=== PATIENT | female | born 1950 | race African-American/Black ===

== ENCOUNTER 2016-08-09 10:08 | Emergency (ER) | payer MEDICARE, MEDICAID ==
[~2016-08-09] VITALS: Ht 162.6 cm; Wt 63.5 kg
[~2016-08-09 10:08] MED LIST: AMLO10TA80 PO; ASPI-1035 PO; COR3 PO; LATA2.5D2 EACHEYE; LISI10TA5 PO; METF500T PO; SIMV20TA6 PO
[2016-08-09] MEDS ORDERED: IBUPROFEN 600MG TABLET PO STA (10:30)
[2016-08-09 11:16] LABS: BASOPHILS % 1.1 % (0.0-2.0); EOSINOPHILS % 1.2 % (0.0-5.0); HEMATOCRIT. 36.1 % (36.0-48.0); HEMOGLOBIN. 11.8 g/dL (12.0-16.0); LYMPHOCYTES % 29.3 % (20.0-50.0); MEAN CORPUSCULAR HEMOGLOBIN 27.9 pg (28.0-32.0); MEAN CORPUSCULAR HGB CONC 32.7 g/dL (31.0-37.0); MEAN CORPUSCULAR VOLUME 85.1 fL (81.0-99.0); MEAN PLATELET VOLUME 7.7 fl (7.4-10.4); MONOCYTES % 8.3 % (2.0-8.0); NEUTROPHILS % 60.1 % (40.0-76.0); PLATELET 268 x1000/uL (130-400); RED BLOOD CELL COUNT 4.24 mill/uL (4.2-5.4); RED CELL DISTRIBUTION WIDTH 16.4 % (11.6-14.6); WHITE BLOOD COUNT 7.6 x1000/uL (4.5-11.0)
[2016-08-09 11:33] LABS: ALANINE AMINOTRANSFERASE 22 IU/L (13-61); ALBUMIN 3.6 g/dL (3.4-5.0); ANION GAP 12; CARBON DIOXIDE 30 mEq/L (21-32); CHLORIDE 105 mEq/L (98-107); INDEX HEMOLYSI 1 (1-3); INDEX ICTERIC 1 (1-4); INDEX LIPEMIC 1 (1-3); NT PRO B-TYPE NATRIURETIC PEP 73 pg/mL (5-125); TROPONIN I < 0.02 ng/mL (0.00-0.04); UREA NITROGEN BLOOD 15 mg/dL (7-21); eGFR > 60 mL/min (>60)
[2016-08-09 11:41] LABS: PROTHROMBIN TIME 10.7 sec
[2016-08-09 11:44] LABS: PARTIAL THROMBOPLASTIN TIME 22.8 sec (24.0-34.0)
[2016-08-09 13:01] VITALS: BP 137/80
== END 2016-08-09 13:33 | disposition home or self-care (01) ==
LOC: ER 10:31
DX: J06.9 Acute upper respiratory infection, unspecified (principal); I11.0 Hypertensive heart disease with heart failure; I50.9 Heart failure, unspecified; E11.9 Type 2 diabetes mellitus without complications; E78.5 Hyperlipidemia, unspecified; I69.351 Hemiplegia and hemiparesis following cerebral infarction affecting right dominant side; Z79.82 Long term (current) use of aspirin; Z90.710 Acquired absence of both cervix and uterus
CPT/HCPCS: 36415; 71010; 80053; 83605; 83880; 84484; 85025; 85610; 85730; 87040; 93005; 99285

== ENCOUNTER 2016-09-30 16:16 | Emergency (ER) | payer MEDICARE, MEDICAID ==
[~2016-09-30] VITALS: Ht 162.6 cm; Wt 65.0 kg
[~2016-09-30 16:16] MED LIST changes: -ASPI-1035 PO; +ASPI-1159 PO; +IOHEXOL-300 100 ML BOTTLE ONE; +SODIUM CHLORIDE 0.9% 10ML VIAL ONE
[2016-09-30] MEDS ORDERED: ONDANSETRON HCL 4MG/2ML VIAL IV STA (18:37)
[2016-09-30] MEDS ORDERED: MORPHINE SULFATE 4 MG/ML CPJ (NOT FOR IM USE) IV STA (18:37)
[2016-09-30 19:04] LABS: BASOPHILS % 1.2 % (0.0-2.0); HEMATOCRIT. 37.6 % (36.0-48.0); HEMOGLOBIN. 12.4 g/dL (12.0-16.0); LYMPHOCYTES % 45.6 % (20.0-50.0); MEAN CORPUSCULAR HEMOGLOBIN 28.7 pg (28.0-32.0); MEAN CORPUSCULAR VOLUME 86.9 fL (81.0-99.0); MEAN PLATELET VOLUME 8.5 fl (7.4-10.4); MONOCYTES % 5.7 % (2.0-8.0); NEUTROPHILS % 46.5 % (40.0-76.0); PLATELET 229 x1000/uL (130-400); RED BLOOD CELL COUNT 4.33 mill/uL (4.2-5.4); RED CELL DISTRIBUTION WIDTH 16.7 % (11.6-14.6)
[2016-09-30 19:09] LABS: PROTHROMBIN TIME 10.7 sec
[2016-09-30 19:14] LABS: CLARITY URINE CLEAR (CLEAR); COLOR URINE YELLOW (YELLOW); GLUCOSE URINE NEGATIVE (NEGATIVE); KETONES URINE NEGATIVE (NEGATIVE); LEUKOCYTE ESTERASE URINE TRACE (NEGATIVE); NITRITE URINE NEGATIVE (NEGATIVE); OCCULT BLOOD URINE NEGATIVE (NEGATIVE); PH URINE 6.5 (4.5-8.0); PROTEIN URINE 2+ (NEGATIVE); SPECIFIC GRAVITY URINE 1.019 (1.005-1.030)
[2016-09-30 19:18] LABS: CARBON DIOXIDE 31 mEq/L (21-32); CHLORIDE 108 mEq/L (98-107); TROPONIN I < 0.02 ng/mL (0.00-0.04)
[2016-09-30] MEDS ORDERED: CLONIDINE 0.1MG TABLET PO ONE (20:00)
[2016-09-30] MEDS ORDERED: HYDROCODONE/ACETAMINOPHEN 5/325MG TABLET PO ONE (22:00)
[2016-10-01 10:12] VITALS: BP 198/92
== END 2016-10-01 10:16 | disposition home or self-care (01) ==
LOC: ER 19:17
DX: M54.5 Low back pain (principal); I10 Essential (primary) hypertension; Z79.82 Long term (current) use of aspirin; J45.909 Unspecified asthma, uncomplicated; I50.9 Heart failure, unspecified; E11.9 Type 2 diabetes mellitus without complications; E78.00 Pure hypercholesterolemia, unspecified; Z86.73 Personal history of transient ischemic attack (TIA), and cerebral infarction without residual deficits; Z90.710 Acquired absence of both cervix and uterus
CPT/HCPCS: 36415; 72170; 74177; 80053; 81001; 83605; 83690; 84484; 85025; 85610; 93005; 96374; 96375; 99285; A4216; J2270; J2405; Q9967

== ENCOUNTER 2016-10-13 11:20 | Emergency (ER) | payer MEDICARE, MEDICAID ==
[~2016-10-13] VITALS: Ht 172.7 cm; Wt 75.0 kg
[~2016-10-13 11:20] MED LIST changes: -IOHEXOL-300 100 ML BOTTLE ONE; -SODIUM CHLORIDE 0.9% 10ML VIAL ONE
[2016-10-13] MEDS ORDERED: KETOROLAC 60MG/2ML VIAL IM ONE (12:00)
[2016-10-13 12:18] LABS: BASOPHILS % 0.8 % (0.0-2.0); EOSINOPHILS % 0.7 % (0.0-5.0); HEMATOCRIT. 40.4 % (36.0-48.0); HEMOGLOBIN. 13.4 g/dL (12.0-16.0); LYMPHOCYTES % 27.2 % (20.0-50.0); MEAN CORPUSCULAR HEMOGLOBIN 28.9 pg (28.0-32.0); MEAN CORPUSCULAR VOLUME 86.9 fL (81.0-99.0); MEAN PLATELET VOLUME 8.3 fl (7.4-10.4); MONOCYTES % 4.1 % (2.0-8.0); NEUTROPHILS % 67.2 % (40.0-76.0); PLATELET 260 x1000/uL (130-400); RED BLOOD CELL COUNT 4.66 mill/uL (4.2-5.4); RED CELL DISTRIBUTION WIDTH 15.8 % (11.6-14.6)
[2016-10-13 12:32] LABS: CARBON DIOXIDE 32 mEq/L (21-32); CHLORIDE 106 mEq/L (98-107); ETHANOL BLOOD < 10 mg/dL
[2016-10-13] MEDS ORDERED: LABETALOL HCL 20MG/4ML CARPUJECT IV ONE (12:45)
[2016-10-13] MEDS ORDERED: LABETALOL 5MG/ML SYR 20 MG/4 ML SYRINGE IV SCH (12:45)
[2016-10-13] MEDS ORDERED: NICARDIPINE 50 MG in SODIUM CHLORIDE 0.9% 230 ML IV PRN ×4 (13:30)
[2016-10-13] MEDS ORDERED: AMLODIPINE 10MG TABLET PO ONE (15:30)
[2016-10-13] MEDS ORDERED: LISINOPRIL 10MG TABLET PO ONE (15:30)
[2016-10-13] MEDS ORDERED: CARVEDILOL 12.5MG TABLET PO ONE (15:30)
[2016-10-13 17:13] VITALS: BP 151/82
== END 2016-10-13 17:31 | disposition home or self-care (01) ==
LOC: ER 11:31
DX: S00.83XA Contusion of other part of head, initial encounter (principal); S70.02XA Contusion of left hip, initial encounter; S20.212A Contusion of left front wall of thorax, initial encounter; I10 Essential (primary) hypertension; Z86.73 Personal history of transient ischemic attack (TIA), and cerebral infarction without residual deficits; E78.00 Pure hypercholesterolemia, unspecified; E11.9 Type 2 diabetes mellitus without complications; I50.9 Heart failure, unspecified; J45.909 Unspecified asthma, uncomplicated; Z90.710 Acquired absence of both cervix and uterus; W01.0XXA Fall on same level from slipping, tripping and stumbling without subsequent striking against object, initial encounter; Y93.89 Activity, other specified; Y92.018 Other place in single-family (private) house as the place of occurrence of the external cause
CPT/HCPCS: 36415; 70450; 71101; 72125; 72170; 80048; 85025; 96365; 96372; 96375; 99291; G0482; J1885; J3490

== ENCOUNTER 2016-12-03 08:46 | Emergency (ER) | payer MEDICARE, MEDICAID ==
[~2016-12-03] VITALS: Ht 162.6 cm; Wt 70.0 kg
[2016-12-03] MEDS ORDERED: SODIUM CHLORIDE 0.9% 1,000 ML IV ONE (10:26)
[2016-12-03] MEDS ORDERED: KETOROLAC 30MG/ML VIAL IV STA (10:26)
[2016-12-03] MEDS ORDERED: ONDANSETRON HCL 4MG/2ML VIAL IV STA (10:26)
[2016-12-03 10:56] LABS: CLARITY URINE CLEAR (CLEAR); COLOR URINE YELLOW (YELLOW); GLUCOSE URINE NEGATIVE (NEGATIVE); KETONES URINE NEGATIVE (NEGATIVE); LEUKOCYTE ESTERASE URINE 3+ (NEGATIVE); NITRITE URINE NEGATIVE (NEGATIVE); OCCULT BLOOD URINE 1+ (NEGATIVE); PROTEIN URINE 2+ (NEGATIVE); SPECIFIC GRAVITY URINE 1.021 (1.005-1.030)
[2016-12-03 11:10] LABS: PROTHROMBIN TIME 10.5 sec
[2016-12-03 11:12] LABS: BASOPHILS % 0.5 % (0.0-2.0); EOSINOPHILS % 1.2 % (0.0-5.0); HEMATOCRIT. 36.5 % (36.0-48.0); HEMOGLOBIN. 12.4 g/dL (12.0-16.0); LYMPHOCYTES % 41.5 % (20.0-50.0); MEAN CORPUSCULAR HEMOGLOBIN 28.6 pg (28.0-32.0); MEAN CORPUSCULAR VOLUME 84.5 fL (81.0-99.0); MEAN PLATELET VOLUME 8.2 fl (7.4-10.4); MONOCYTES % 5.5 % (2.0-8.0); NEUTROPHILS % 51.3 % (40.0-76.0); PLATELET 191 x1000/uL (130-400); RED BLOOD CELL COUNT 4.31 mill/uL (4.2-5.4); RED CELL DISTRIBUTION WIDTH 14.8 % (11.6-14.6)
[2016-12-03 11:21] LABS: CARBON DIOXIDE 29 mEq/L (21-32); CHLORIDE 109 mEq/L (98-107); ETHANOL BLOOD < 10 mg/dL; TROPONIN I < 0.02 ng/mL (0.00-0.04)
[2016-12-03 11:32] LABS: *AMPHETAMINES SCREEN URINE NEGATIVE (NEGATIVE); *BARBITURATES SCREEN URINE NEGATIVE (NEGATIVE); *BENZODIAZEPINES SCREEN URINE NEGATIVE (NEGATIVE); *COCAINE SCREEN URINE NEGATIVE (NEGATIVE); CANNABINOID URINE SCREEN NEGATIVE (NEGATIVE); METHADONE URINE SCREEN NEGATIVE (NEGATIVE); OPIATES URINE SCREEN NEGATIVE (NEGATIVE); PHENCYCLIDINE URINE SCREEN NEGATIVE (NEGATIVE)
[2016-12-03 12:24] VITALS: BP 125/76
== END 2016-12-03 12:25 | disposition home or self-care (01) ==
LOC: ER 09:00
DX: N39.0 Urinary tract infection, site not specified (principal); R41.82 Altered mental status, unspecified; R29.810 Facial weakness; E11.9 Type 2 diabetes mellitus without complications; I11.0 Hypertensive heart disease with heart failure; I50.9 Heart failure, unspecified; J45.909 Unspecified asthma, uncomplicated; E78.00 Pure hypercholesterolemia, unspecified; Z79.82 Long term (current) use of aspirin
CPT/HCPCS: 36415; 70450; 71010; 74176; 80053; 80305; 81001; 82962; 83690; 84484; 85025; 85610; 93005; 96361; 96374; 96375; 99285; G0482; J1885; J2405; J7030

== ENCOUNTER 2016-12-28 09:32 | Inpatient (IN) | payer MEDICARE, MEDICAID ==
[~2016-12-28] VITALS: Ht 165.1 cm; Wt 79.8 kg
[2016-12-28] MEDS ORDERED: METHYLPREDNISOLONE SOD SUCC 125 MG/2 ML VIAL IV STA (09:55)
[2016-12-28] MEDS ORDERED: MORPHINE SULFATE 4 MG/ML CPJ (NOT FOR IM USE) IV STA (09:55)
[2016-12-28] MEDS ORDERED: ALBUTEROL (0.083%) 2.5MG/3ML NEB HHN STA (09:55)
[2016-12-28] MEDS ORDERED: ONDANSETRON HCL 4MG/2ML VIAL IV STA (09:55)
[2016-12-28] MEDS ORDERED: IPRATROPIUM BROMIDE (0.02%) 0.5MG/2.5ML NEB HHN STA (09:55)
[2016-12-28 10:07] LABS: BASOPHILS % 0.8 % (0.0-2.0); EOSINOPHILS % 2.4 % (0.0-5.0); HEMATOCRIT. 35.5 % (36.0-48.0); HEMOGLOBIN. 11.7 g/dL (12.0-16.0); LYMPHOCYTES % 30.5 % (20.0-50.0); MEAN CORPUSCULAR HEMOGLOBIN 27.9 pg (28.0-32.0); MEAN CORPUSCULAR VOLUME 84.5 fL (81.0-99.0); MEAN PLATELET VOLUME 7.9 fl (7.4-10.4); MONOCYTES % 9.3 % (2.0-8.0); PLATELET 216 x1000/uL (130-400); RED CELL DISTRIBUTION WIDTH 15.3 % (11.6-14.6)
[2016-12-28] MEDS ORDERED: ALBUTEROL (0.5%) 2.5MG/0.5ML NEB HHN ONE (10:12)
[2016-12-28 10:15] LABS: PARTIAL THROMBOPLASTIN TIME 25.9 sec (23.4-31.0); PROTHROMBIN TIME 10.5 sec (9.4-11.6)
[2016-12-28 10:22] LABS: CARBON DIOXIDE 30 mEq/L (21-32); CHLORIDE 107 mEq/L (98-107); CREATINE KINASE 120 IU/L (26-192); CREATINE KINASE MB FRACTION 0.7 ng/mL (0.5-3.6); TROPONIN I < 0.02 ng/mL (0.00-0.04)
[2016-12-28] MEDS ORDERED: LEVOFLOXACIN 500MG PREMIX 100 ML IV ONE (10:45)
[2016-12-28 14:12] VITALS: BP 136/64
[2016-12-28 16:00] VITALS: BP 144/65
[2016-12-28 16:10] VITALS: BP 146/68
[2016-12-28] MEDS ORDERED: DEXTROSE 50% WATER 50ML SYRINGE IV PRN (16:15)
[2016-12-28] MEDS ORDERED: ONDANSETRON HCL 4MG/2ML VIAL IV PRN (16:15)
[2016-12-28] MEDS ORDERED: IPRATROPIUM/ALBUTEROL 0.5-3(2.5)MG/3ML NEB INH PRN (16:15)
[2016-12-28] MEDS ORDERED: DIPHENHYDRAMINE 50MG/ML VIAL IV PRN (16:15)
[2016-12-28] MEDS ORDERED: MAGNESIUM/ALUMINUM HYDROXIDE/SIMETHICONE 30ML UDC PO PRN (16:15)
[2016-12-28] MEDS ORDERED: GUAIFENESIN 200MG/10ML SUGAR FREE UDC PO PRN (16:15)
[2016-12-28] MEDS ORDERED: ACETAMINOPHEN 325MG TABLET PO PRN (16:15)
[2016-12-28] MEDS: METFORMIN HCL 500MG TABLET PO SCH (16:47)
[2016-12-28] MEDS: BLOOD SUGAR DIAGNOSTIC STRIP TEST SCH ×2 (17:10→21:00)
[2016-12-28] MEDS: INSULIN LISPRO 100 UNITS/ML SUBCUT SCH ×3 (17:40→22:17)
[2016-12-28] MEDS ORDERED: MAGNESIUM HYDROXIDE 400MG/5ML 30ML UDC PO PRN (17:45)
[2016-12-28] MEDS: LAMOTRIGINE 25MG TABLET PO SCH (18:35)
[2016-12-28 20:00] VITALS: BP 131/65
[2016-12-28] MEDS: CLONIDINE 0.1MG TABLET PO SCH (22:00)
[2016-12-28] MEDS: CARVEDILOL 12.5MG TABLET PO SCH (22:11)
[2016-12-28] MEDS: ZOLPIDEM TARTRATE 5MG TABLET PO PRN (22:11)
[2016-12-28] MEDS: GUAIFENESIN 600MG ER TABLET PO SCH (22:12)
[2016-12-28] MEDS: OMEPRAZOLE 20MG CAPSULE EXTENDED RELEASE PO SCH (22:12)
[2016-12-28] MEDS: SODIUM CHLORIDE 0.9% INJ 3ML FLUSH IVF SCH (22:19)
[2016-12-29] VITALS: BP 133/83
[2016-12-29] MEDS: IPRATROPIUM/ALBUTEROL 0.5-3(2.5)MG/3ML NEB HHN SCH ×3 (00:21→16:20)
[2016-12-29 04:00] VITALS: BP 152/72
[2016-12-29] MEDS: CLONIDINE 0.1MG TABLET PO SCH ×3 (06:57→21:45)
[2016-12-29] MEDS: SODIUM CHLORIDE 0.9% INJ 3ML FLUSH IVF SCH ×3 (06:57→21:45)
[2016-12-29] MEDS: INSULIN LISPRO 100 UNITS/ML SUBCUT SCH ×4 (07:40→21:45)
[2016-12-29] MEDS: BLOOD SUGAR DIAGNOSTIC STRIP TEST SCH ×4 (07:47→20:50)
[2016-12-29 08:00] VITALS: BP 131/70
[2016-12-29] MEDS: DOCUSATE SODIUM 100MG CAPSULE PO SCH ×2 (08:46→17:35)
[2016-12-29] MEDS: OMEPRAZOLE 20MG CAPSULE EXTENDED RELEASE PO SCH (08:46)
[2016-12-29] MEDS: POLYETHYLENE GLYCOL 3350 (17GM) 1 DOSE PACK PO SCH (08:47)
[2016-12-29] MEDS: METFORMIN HCL 500MG TABLET PO SCH ×2 (08:47→17:35)
[2016-12-29] MEDS: TRAMADOL 50MG TABLET PO PRN ×2 (08:47→20:17)
[2016-12-29] MEDS: CARVEDILOL 12.5MG TABLET PO SCH ×2 (08:47→20:44)
[2016-12-29] MEDS: VENLAFAXINE HCL 37.5MG TABLET PO SCH (08:47)
[2016-12-29] MEDS: LISINOPRIL 10MG TABLET PO SCH (08:47)
[2016-12-29] MEDS: LAMOTRIGINE 25MG TABLET PO SCH ×2 (08:47→17:35)
[2016-12-29] MEDS: ASPIRIN 81MG EC TABLET PO SCH (08:47)
[2016-12-29] MEDS: GUAIFENESIN 600MG ER TABLET PO SCH ×2 (08:53→20:44)
[2016-12-29 12:00] VITALS: BP 146/35
[2016-12-29] MEDS: LEVOFLOXACIN 500MG PREMIX 100 ML IV SCH (12:16)
[2016-12-29 16:00] VITALS: BP 131/62
[2016-12-29 20:00] VITALS: BP 145/61
[2016-12-29] MEDS: FAMOTIDINE 20MG TABLET PO SCH (20:38)
[2016-12-29] MEDS: LATANOPROST 0.005% OPHTH DROPS 2.5ML EACHEYE SCH (20:44)
[2016-12-29] MEDS: ZOLPIDEM TARTRATE 5MG TABLET PO PRN (21:45)
[2016-12-30] VITALS: BP 140/64
[2016-12-30] MEDS: IPRATROPIUM/ALBUTEROL 0.5-3(2.5)MG/3ML NEB HHN SCH ×4 (00:53→23:40)
[2016-12-30 04:00] VITALS: BP 140/64
[2016-12-30] MEDS: BLOOD SUGAR DIAGNOSTIC STRIP TEST SCH ×4 (06:18→20:29)
[2016-12-30] MEDS: INSULIN LISPRO 100 UNITS/ML SUBCUT SCH ×4 (06:18→20:29)
[2016-12-30] MEDS: FAMOTIDINE 20MG TABLET PO SCH ×2 (06:34→21:03)
[2016-12-30] MEDS: CLONIDINE 0.1MG TABLET PO SCH ×3 (06:34→21:03)
[2016-12-30] MEDS: SODIUM CHLORIDE 0.9% INJ 3ML FLUSH IVF SCH ×3 (06:34→21:03)
[2016-12-30 07:24] LABS: BASOPHILS % 0.4 % (0.0-2.0); EOSINOPHILS % 1.2 % (0.0-5.0); HEMATOCRIT. 31.8 % (36.0-48.0); HEMOGLOBIN. 10.7 g/dL (12.0-16.0); MEAN CORPUSCULAR HEMOGLOBIN 28.1 pg (28.0-32.0); MEAN CORPUSCULAR VOLUME 83.2 fL (81.0-99.0); MEAN PLATELET VOLUME 7.9 fl (7.4-10.4); NEUTROPHILS % 56.4 % (40.0-76.0); PLATELET 217 x1000/uL (130-400); RED BLOOD CELL COUNT 3.82 mill/uL (4.2-5.4); RED CELL DISTRIBUTION WIDTH 15.6 % (11.6-14.6)
[2016-12-30 08:00] VITALS: BP 156/72
[2016-12-30 08:38] LABS: CARBON DIOXIDE 30 mEq/L (21-32); CHLORIDE 106 mEq/L (98-107)
[2016-12-30] MEDS: TRAMADOL 50MG TABLET PO PRN (08:47)
[2016-12-30] MEDS: DOCUSATE SODIUM 100MG CAPSULE PO SCH ×2 (08:48→16:56)
[2016-12-30] MEDS: LISINOPRIL 10MG TABLET PO SCH (08:48)
[2016-12-30] MEDS: LAMOTRIGINE 25MG TABLET PO SCH ×2 (08:48→16:56)
[2016-12-30] MEDS: GUAIFENESIN 600MG ER TABLET PO SCH ×2 (08:48→21:03)
[2016-12-30] MEDS: POLYETHYLENE GLYCOL 3350 (17GM) 1 DOSE PACK PO SCH ×2 (08:48→09:00)
[2016-12-30] MEDS: VENLAFAXINE HCL 37.5MG TABLET PO SCH (08:48)
[2016-12-30] MEDS: METFORMIN HCL 500MG TABLET PO SCH ×2 (08:48→16:56)
[2016-12-30] MEDS: CARVEDILOL 12.5MG TABLET PO SCH ×2 (08:48→20:29)
[2016-12-30] MEDS: ASPIRIN 81MG EC TABLET PO SCH (08:48)
[2016-12-30] MEDS: LEVOFLOXACIN 500MG PREMIX 100 ML IV SCH (11:46)
[2016-12-30] MEDS: CLONIDINE 0.1MG TABLET PO PRN (11:51)
[2016-12-30 11:55] VITALS: BP 173/78
[2016-12-30 15:37] VITALS: BP 147/75
[2016-12-30] MEDS ORDERED: POTASSIUM CHLORIDE 20MEQ TABLET SR PO NR (17:30)
[2016-12-30 20:00] VITALS: BP 149/58
[2016-12-30] MEDS: ZOLPIDEM TARTRATE 5MG TABLET PO PRN (21:03)
[2016-12-30] MEDS: LATANOPROST 0.005% OPHTH DROPS 2.5ML EACHEYE SCH (21:04)
[2016-12-31] VITALS (7 sets, daily range): BP systolic 139–191; BP diastolic 63–83
[2016-12-31] MEDS: BLOOD SUGAR DIAGNOSTIC STRIP TEST SCH ×4 (06:21→21:20)
[2016-12-31] MEDS: INSULIN LISPRO 100 UNITS/ML SUBCUT SCH ×4 (06:21→22:39)
[2016-12-31] MEDS: SODIUM CHLORIDE 0.9% INJ 3ML FLUSH IVF SCH ×3 (06:24→22:39)
[2016-12-31] MEDS: CLONIDINE 0.1MG TABLET PO SCH ×3 (06:24→22:38)
[2016-12-31] MEDS: FAMOTIDINE 20MG TABLET PO SCH ×2 (06:24→22:38)
[2016-12-31] MEDS: IPRATROPIUM/ALBUTEROL 0.5-3(2.5)MG/3ML NEB HHN SCH ×2 (08:27→15:20)
[2016-12-31] MEDS: CARVEDILOL 12.5MG TABLET PO SCH ×2 (08:38→22:38)
[2016-12-31] MEDS: METFORMIN HCL 500MG TABLET PO SCH ×2 (08:38→16:54)
[2016-12-31] MEDS: POLYETHYLENE GLYCOL 3350 (17GM) 1 DOSE PACK PO SCH ×2 (08:39→08:41)
[2016-12-31] MEDS: LAMOTRIGINE 25MG TABLET PO SCH ×2 (08:39→16:32)
[2016-12-31] MEDS: VENLAFAXINE HCL 37.5MG TABLET PO SCH (08:39)
[2016-12-31] MEDS: ASPIRIN 81MG EC TABLET PO SCH (08:39)
[2016-12-31] MEDS: DOCUSATE SODIUM 100MG CAPSULE PO SCH ×2 (08:39→16:32)
[2016-12-31] MEDS: LISINOPRIL 10MG TABLET PO SCH (08:39)
[2016-12-31] MEDS: GUAIFENESIN 600MG ER TABLET PO SCH ×2 (08:39→22:38)
[2016-12-31] MEDS: LEVOFLOXACIN 500MG PREMIX 100 ML IV SCH (10:21)
[2016-12-31] MEDS: CLONIDINE 0.1MG TABLET PO PRN (12:06)
[2016-12-31] MEDS: LATANOPROST 0.005% OPHTH DROPS 2.5ML EACHEYE SCH (22:40)
[2016-12-31] MEDS: ZOLPIDEM TARTRATE 5MG TABLET PO PRN (22:43)
[2017-01-01] VITALS: BP 166/89
[2017-01-01] MEDS: IPRATROPIUM/ALBUTEROL 0.5-3(2.5)MG/3ML NEB HHN SCH ×2 (00:20→09:30)
[2017-01-01 04:00] VITALS: BP 155/66
[2017-01-01] MEDS: BLOOD SUGAR DIAGNOSTIC STRIP TEST SCH ×2 (05:53→12:40)
[2017-01-01] MEDS: SODIUM CHLORIDE 0.9% INJ 3ML FLUSH IVF SCH ×2 (05:57→12:43)
[2017-01-01] MEDS: FAMOTIDINE 20MG TABLET PO SCH (05:59)
[2017-01-01] MEDS: CLONIDINE 0.1MG TABLET PO SCH (06:00)
[2017-01-01] MEDS: INSULIN LISPRO 100 UNITS/ML SUBCUT SCH ×2 (06:00→12:40)
[2017-01-01 07:55] VITALS: BP 173/71
[2017-01-01] MEDS: METFORMIN HCL 500MG TABLET PO SCH (08:22)
[2017-01-01] MEDS: DOCUSATE SODIUM 100MG CAPSULE PO SCH (08:22)
[2017-01-01] MEDS: LISINOPRIL 10MG TABLET PO SCH (08:23)
[2017-01-01] MEDS: LAMOTRIGINE 25MG TABLET PO SCH (08:24)
[2017-01-01] MEDS: ASPIRIN 81MG EC TABLET PO SCH (08:24)
[2017-01-01] MEDS: VENLAFAXINE HCL 37.5MG TABLET PO SCH (08:24)
[2017-01-01] MEDS: GUAIFENESIN 600MG ER TABLET PO SCH (08:24)
[2017-01-01] MEDS: CARVEDILOL 12.5MG TABLET PO SCH (08:25)
[2017-01-01] MEDS: POLYETHYLENE GLYCOL 3350 (17GM) 1 DOSE PACK PO SCH (08:26)
[2017-01-01 12:00] VITALS: BP 177/79
[2017-01-01] MEDS: CLONIDINE 0.1MG TABLET PO PRN (12:42)
[2017-01-01] MEDS: LEVOFLOXACIN 500MG PREMIX 100 ML IV SCH (12:42)
== END 2017-01-01 15:46 | disposition home or self-care (01) | DRG 133 ==
LOC: ER 09:33 → 8WST 11:33 → EDBEDREQ 11:36 → EDBEDREQTM 11:36 → EDBEDREQSVC 11:36 → ENRESERV 11:50 → UNDODISIN 14:25
PROVIDERS: ADMIT Internal Medicine; ATTEND Internal Medicine
DX: J96.00 Acute respiratory failure, unspecified whether with hypoxia or hypercapnia (principal); J18.0 Bronchopneumonia, unspecified organism; I11.0 Hypertensive heart disease with heart failure; E11.40 Type 2 diabetes mellitus with diabetic neuropathy, unspecified; J18.9 Pneumonia, unspecified organism; I50.9 Heart failure, unspecified; J20.9 Acute bronchitis, unspecified; Z86.73 Personal history of transient ischemic attack (TIA), and cerebral infarction without residual deficits; E78.00 Pure hypercholesterolemia, unspecified; F41.1 Generalized anxiety disorder; J45.901 Unspecified asthma with (acute) exacerbation; M10.9 Gout, unspecified; Z82.49 Family history of ischemic heart disease and other diseases of the circulatory system; Z83.3 Family history of diabetes mellitus; Z90.710 Acquired absence of both cervix and uterus; Z90.49 Acquired absence of other specified parts of digestive tract; Z60.2 Problems related to living alone; Z79.899 Other long term (current) drug therapy; S79.812A Other specified injuries of left hip, initial encounter; W18.39XA Other fall on same level, initial encounter; Y93.89 Activity, other specified; Y92.89 Other specified places as the place of occurrence of the external cause; Y99.8 Other external cause status
CPT/HCPCS: 36415; 71010; 73030; 73080; 73502; 80048; 82550; 82553; 82962; 83605; 83880; 84484; 85025; 85610; 85730; 87040; 93005; 94640; 94664; 96365; 96375; 97110; 97116; 97163; 97530; 99285; J1815; J1956; J2270; J2405; J2930; J7040; J7611; J7620

== ENCOUNTER 2017-02-03 11:12 | Emergency (ER) | payer MEDICARE, MEDICAID ==
[~2017-02-03] VITALS: Ht 162.6 cm; Wt 68.0 kg
[2017-02-03 11:18] VITALS: BP 165/85
== END 2017-02-03 15:46 | disposition left against medical advice (07) ==
LOC: ER 11:38
DX: M25.512 Pain in left shoulder (principal); E11.9 Type 2 diabetes mellitus without complications; Z53.21 Procedure and treatment not carried out due to patient leaving prior to being seen by health care provider
CPT/HCPCS: 82962

== ENCOUNTER 2017-02-25 08:26 | Emergency (ER) | payer MEDICARE, MEDICAID ==
[~2017-02-25] VITALS: Ht 162.6 cm; Wt 69.0 kg
[2017-02-25] MEDS ORDERED: SODIUM CHLORIDE 0.9% 1,000 ML IV ONE (08:57)
[2017-02-25] MEDS ORDERED: ONDANSETRON HCL 4MG/2ML VIAL IV ONE (09:00)
[2017-02-25] MEDS ORDERED: FAMOTIDINE 20MG/2ML VIAL IV ONE (09:00)
[2017-02-25 09:14] LABS: BASOPHILS % 0.6 % (0.0-2.0); EOSINOPHILS % 1.2 % (0.0-5.0); HEMATOCRIT. 35.8 % (36.0-48.0); HEMOGLOBIN. 11.9 g/dL (12.0-16.0); LYMPHOCYTES % 47.2 % (20.0-50.0); MEAN CORPUSCULAR HEMOGLOBIN 28.6 pg (28.0-32.0); MEAN CORPUSCULAR VOLUME 85.7 fL (81.0-99.0); MEAN PLATELET VOLUME 7.6 fl (7.4-10.4); MONOCYTES % 4.8 % (2.0-8.0); NEUTROPHILS % 46.2 % (40.0-76.0); PLATELET 237 x1000/uL (130-400); RED BLOOD CELL COUNT 4.18 mill/uL (4.2-5.4); RED CELL DISTRIBUTION WIDTH 15.7 % (11.6-14.6)
[2017-02-25 09:32] LABS: CARBON DIOXIDE 28 mEq/L (21-32); CHLORIDE 108 mEq/L (98-107); TROPONIN I < 0.02 ng/mL (0.00-0.04)
[2017-02-25] MEDS ORDERED: MECLIZINE 25MG TABLET PO ONE (10:30)
[2017-02-25 12:19] VITALS: BP 148/67
== END 2017-02-25 12:21 | disposition home or self-care (01) ==
LOC: ER 08:52
DX: D64.9 Anemia, unspecified (principal); R11.2 Nausea with vomiting, unspecified; R07.9 Chest pain, unspecified; J44.9 Chronic obstructive pulmonary disease, unspecified; E78.00 Pure hypercholesterolemia, unspecified; E11.9 Type 2 diabetes mellitus without complications; I11.0 Hypertensive heart disease with heart failure; I50.9 Heart failure, unspecified; Z86.73 Personal history of transient ischemic attack (TIA), and cerebral infarction without residual deficits; Z79.82 Long term (current) use of aspirin
CPT/HCPCS: 36415; 70450; 80053; 83690; 84484; 85025; 93005; 96361; 96374; 96375; 99285; J2405; J3490; J7030; J8597

== ENCOUNTER 2017-03-20 09:02 | Emergency (ER) | payer MEDICARE, MEDICAID ==
[~2017-03-20] VITALS: Ht 162.6 cm; Wt 69.0 kg
[2017-03-20 09:34] VITALS: BP 154/88
== END 2017-03-20 10:02 | disposition left against medical advice (07) ==
LOC: ER 09:22
DX: R51 Headache (principal); Z53.21 Procedure and treatment not carried out due to patient leaving prior to being seen by health care provider

== ENCOUNTER 2017-04-17 11:06 | Emergency (ER) | payer MEDICARE, MEDICAID ==
[~2017-04-17] VITALS: Ht 167.6 cm; Wt 65.0 kg
[2017-04-17 11:49] LABS: BASOPHILS % 0.4 % (0.0-2.0); EOSINOPHILS % 0.5 % (0.0-5.0); HEMATOCRIT. 40.1 % (36.0-48.0); HEMOGLOBIN. 13.4 g/dL (12.0-16.0); LYMPHOCYTES % 42.8 % (20.0-50.0); MEAN CORPUSCULAR HEMOGLOBIN 28.4 pg (28.0-32.0); MEAN CORPUSCULAR VOLUME 85.2 fL (81.0-99.0); MEAN PLATELET VOLUME 7.7 fl (7.4-10.4); MONOCYTES % 5.7 % (2.0-8.0); NEUTROPHILS % 50.6 % (40.0-76.0); PLATELET 223 x1000/uL (130-400); RED BLOOD CELL COUNT 4.71 mill/uL (4.2-5.4); RED CELL DISTRIBUTION WIDTH 14.8 % (11.6-14.6)
[2017-04-17 12:03] LABS: CARBON DIOXIDE 31 mEq/L (21-32); CHLORIDE 104 mEq/L (98-107)
[2017-04-17 14:34] VITALS: BP 174/85
== END 2017-04-17 15:16 | disposition home or self-care (01) ==
LOC: ER 11:19
DX: S00.81XA Abrasion of other part of head, initial encounter (principal); J45.909 Unspecified asthma, uncomplicated; I25.10 Atherosclerotic heart disease of native coronary artery without angina pectoris; I50.9 Heart failure, unspecified; I11.0 Hypertensive heart disease with heart failure; F32.9 Major depressive disorder, single episode, unspecified; E11.9 Type 2 diabetes mellitus without complications; W01.0XXA Fall on same level from slipping, tripping and stumbling without subsequent striking against object, initial encounter; Y93.89 Activity, other specified; Y99.8 Other external cause status; Y92.89 Other specified places as the place of occurrence of the external cause; Z79.82 Long term (current) use of aspirin; Z86.73 Personal history of transient ischemic attack (TIA), and cerebral infarction without residual deficits
CPT/HCPCS: 36415; 70450; 70486; 71010; 80053; 85025; 93005; 99285

== ENCOUNTER 2017-07-27 09:05 | Emergency (ER) | payer MEDICARE, MEDICAID ==
[~2017-07-27] VITALS: Ht 162.6 cm; Wt 55.0 kg
[2017-07-27] MEDS ORDERED: KETOROLAC 60MG/2ML VIAL IM STA (10:13)
[2017-07-27] MEDS ORDERED: ONDANSETRON HCL 4MG/2ML VIAL IV STA (10:13)
[2017-07-27 11:24] LABS: BASOPHILS % 0.5 % (0.0-2.0); EOSINOPHILS % 0.6 % (0.0-5.0); HEMATOCRIT. 34.1 % (36.0-48.0); HEMOGLOBIN. 11.4 g/dL (12.0-16.0); LYMPHOCYTES % 47.2 % (20.0-50.0); MEAN CORPUSCULAR HEMOGLOBIN 28.4 pg (28.0-32.0); MEAN PLATELET VOLUME 8.7 fl (7.4-10.4); MONOCYTES % 5.3 % (2.0-8.0); NEUTROPHILS % 46.4 % (40.0-76.0); PLATELET 192 x1000/uL (130-400); RED BLOOD CELL COUNT 4.01 mill/uL (4.2-5.4); RED CELL DISTRIBUTION WIDTH 14.6 % (11.6-14.6)
[2017-07-27 11:26] LABS: CHLORIDE 110 mEq/L (98-107)
[2017-07-27 11:27] LABS: INR 1.1
[2017-07-27 12:23] LABS: CLARITY URINE CLEAR (CLEAR); COLOR URINE YELLOW (YELLOW); KETONES URINE NEGATIVE (NEGATIVE); LEUKOCYTE ESTERASE URINE 1+ (NEGATIVE); NITRITE URINE NEGATIVE (NEGATIVE); OCCULT BLOOD URINE 2+ (NEGATIVE); PH URINE 6.5 (4.5-8.0); PROTEIN URINE 1+ (NEGATIVE); SPECIFIC GRAVITY URINE 1.016 (1.005-1.030)
[2017-07-27] MEDS ORDERED: ACETAMINOPHEN 325MG TABLET PO ONE (13:30)
[2017-07-27] MEDS ORDERED: HYDRALAZINE HCL 50MG TABLET PO ONE (13:45)
[2017-07-27 16:09] VITALS: BP 161/69
== END 2017-07-27 16:15 | disposition home or self-care (01) ==
LOC: ER 10:17
DX: R10.9 Unspecified abdominal pain (principal); I25.10 Atherosclerotic heart disease of native coronary artery without angina pectoris; J45.909 Unspecified asthma, uncomplicated; I11.0 Hypertensive heart disease with heart failure; I50.9 Heart failure, unspecified; N64.89 Other specified disorders of breast; E11.9 Type 2 diabetes mellitus without complications; F32.9 Major depressive disorder, single episode, unspecified; K57.30 Diverticulosis of large intestine without perforation or abscess without bleeding; Z79.82 Long term (current) use of aspirin; Z86.73 Personal history of transient ischemic attack (TIA), and cerebral infarction without residual deficits; Z90.710 Acquired absence of both cervix and uterus
CPT/HCPCS: 36415; 74176; 80053; 81003; 83690; 85025; 85610; 96372; 96374; 99285; J1885; J2405

== ENCOUNTER 2017-08-25 19:46 | Inpatient (IN) | payer MEDICARE, MEDICAID ==
[~2017-08-25] VITALS: Ht 160 cm; Wt 68.9 kg
[2017-08-25] MEDS ORDERED: ONDANSETRON HCL 4MG/2ML VIAL IV STA (20:46)
[2017-08-25] MEDS ORDERED: MORPHINE SULFATE 4 MG/ML CPJ (NOT FOR IM USE) IV STA (20:46)
[2017-08-25] MEDS ORDERED: ASPIRIN 81MG TABLET PO ONE (21:00)
[2017-08-25 21:24] LABS: BASOPHILS % 0.5 % (0.0-2.0); EOSINOPHILS % 0.9 % (0.0-5.0); HEMATOCRIT. 32.6 % (36.0-48.0); LYMPHOCYTES % 46.4 % (20.0-50.0); MEAN CORPUSCULAR VOLUME 85.8 fL (81.0-99.0); MEAN PLATELET VOLUME 8.5 fl (7.4-10.4); MONOCYTES % 6.5 % (2.0-8.0); NEUTROPHILS % 45.7 % (40.0-76.0); PLATELET 192 x1000/uL (130-400); RED CELL DISTRIBUTION WIDTH 15.8 % (11.6-14.6)
[2017-08-25 21:26] LABS: CHLORIDE 112 mEq/L (98-107)
[2017-08-25 21:29] LABS: INR 1.1; PROTHROMBIN TIME 11.1 sec (9.4-11.6)
[2017-08-25] MEDS ORDERED: ONDANSETRON HCL 4MG/2ML VIAL IV ONE ×2 (23:15)
[2017-08-25] MEDS ORDERED: MORPHINE SULFATE 4 MG/ML CPJ (NOT FOR IM USE) IV ONE ×2 (23:15)
[2017-08-26] MEDS ORDERED: HYDRALAZINE 20MG/ML VIAL IV SCH (01:11)
[2017-08-26] MEDS ORDERED: POTASSIUM CHLORIDE 20MEQ TABLET SR PO SCH ×3 (02:07→15:15)
[2017-08-26] MEDS ORDERED: DEXTROSE 50% WATER 50ML SYRINGE IV PRN (03:00)
[2017-08-26 04:10] VITALS: BP 197/74
[2017-08-26] MEDS: INSULIN LISPRO 100 UNITS/ML SUBCUT SCH ×4 (07:50→21:00)
[2017-08-26 08:00] VITALS: BP 189/83
[2017-08-26] MEDS: LISINOPRIL 10MG TABLET PO SCH (09:11)
[2017-08-26] MEDS: CARVEDILOL 12.5MG TABLET PO SCH ×2 (09:12→21:19)
[2017-08-26] MEDS: METFORMIN HCL 500MG TABLET PO SCH ×2 (09:12→17:29)
[2017-08-26] MEDS: AMLODIPINE 10MG TABLET PO SCH (09:12)
[2017-08-26] MEDS: OMEPRAZOLE 20MG CAPSULE EXTENDED RELEASE PO SCH ×2 (09:12→21:16)
[2017-08-26] MEDS: ASPIRIN 325MG EC TABLET PO SCH (09:13)
[2017-08-26] MEDS: BLOOD SUGAR DIAGNOSTIC STRIP TEST SCH ×4 (09:13→21:00)
[2017-08-26] MEDS: ACETAMINOPHEN 325MG TABLET PO PRN ×2 (11:20→18:32)
[2017-08-26 12:00] VITALS: BP 192/74
[2017-08-26 16:00] VITALS: BP 180/76
[2017-08-26] MEDS ORDERED: IBUPROFEN 400MG TABLET PO PRN (16:00)
[2017-08-26] MEDS: LAMOTRIGINE 25MG TABLET PO SCH (17:29)
[2017-08-26] MEDS: VENLAFAXINE HCL 37.5MG TABLET PO SCH (17:29)
[2017-08-26] MEDS ORDERED: POTASSIUM CHLORIDE INJ 40 MEQ in DEXTROSE 5% WATER 1,000 ML IV SCH (18:00)
[2017-08-26 19:46] VITALS: BP 205/84
[2017-08-26] MEDS ORDERED: ATORVASTATIN CALCIUM 20MG TABLET PO SCH (21:00)
[2017-08-26] MEDS: CLONIDINE 0.1MG TABLET PO SCH (21:59)
[2017-08-27] VITALS: BP 165/66
[2017-08-27 04:00] VITALS: BP 155/57
[2017-08-27 06:27] LABS: BASOPHILS % 0.4 % (0.0-2.0); EOSINOPHILS % 1.1 % (0.0-5.0); HEMATOCRIT. 33.4 % (36.0-48.0); LYMPHOCYTES % 46.7 % (20.0-50.0); MEAN CORPUSCULAR HEMOGLOBIN 28.3 pg (28.0-32.0); MEAN CORPUSCULAR VOLUME 85.9 fL (81.0-99.0); MEAN PLATELET VOLUME 8.8 fl (7.4-10.4); MONOCYTES % 5.3 % (2.0-8.0); NEUTROPHILS % 46.5 % (40.0-76.0); PLATELET 194 x1000/uL (130-400); RED BLOOD CELL COUNT 3.88 mill/uL (4.2-5.4); RED CELL DISTRIBUTION WIDTH 16.3 % (11.6-14.6)
[2017-08-27] MEDS: CLONIDINE 0.1MG TABLET PO SCH ×2 (06:28→13:49)
[2017-08-27] MEDS: OMEPRAZOLE 20MG CAPSULE EXTENDED RELEASE PO SCH (06:31)
[2017-08-27] MEDS: BLOOD SUGAR DIAGNOSTIC STRIP TEST SCH ×2 (06:31→13:49)
[2017-08-27] MEDS: INSULIN LISPRO 100 UNITS/ML SUBCUT SCH ×2 (07:50→12:50)
[2017-08-27 07:51] LABS: CHLORIDE 110 mEq/L (98-107)
[2017-08-27 08:36] VITALS: BP 156/74
[2017-08-27] MEDS: VENLAFAXINE HCL 37.5MG TABLET PO SCH (08:37)
[2017-08-27] MEDS: ASPIRIN 325MG EC TABLET PO SCH (08:38)
[2017-08-27] MEDS: AMLODIPINE 10MG TABLET PO SCH (08:38)
[2017-08-27] MEDS: METFORMIN HCL 500MG TABLET PO SCH (08:38)
[2017-08-27] MEDS: LISINOPRIL 10MG TABLET PO SCH (08:38)
[2017-08-27] MEDS: CARVEDILOL 12.5MG TABLET PO SCH (08:39)
[2017-08-27] MEDS: LAMOTRIGINE 25MG TABLET PO SCH (08:39)
[2017-08-27] MEDS ORDERED: MAGNESIUM 2 G PREMIX 50 ML IV SCH (10:30)
[2017-08-27] MEDS: ACETAMINOPHEN 325MG TABLET PO PRN (12:15)
[2017-08-27 12:50] VITALS: BP 175/55
[2017-08-27 18:33] VITALS: BP 157/59
== END 2017-08-27 19:12 | disposition home or self-care (01) | DRG 203 ==
LOC: ER 21:09 → 6WST 08-26 02:09 → ENRESERV 08-26 02:23
PROVIDERS: ADMIT Internal Medicine; ATTEND Internal Medicine
DX: M94.0 Chondrocostal junction syndrome [Tietze] (principal); E87.0 Hyperosmolality and hypernatremia; E87.6 Hypokalemia; E11.40 Type 2 diabetes mellitus with diabetic neuropathy, unspecified; E44.1 Mild protein-calorie malnutrition; E78.00 Pure hypercholesterolemia, unspecified; E78.5 Hyperlipidemia, unspecified; E83.42 Hypomagnesemia; E83.51 Hypocalcemia; F41.1 Generalized anxiety disorder; I10 Essential (primary) hypertension; F32.9 Major depressive disorder, single episode, unspecified; K21.9 Gastro-esophageal reflux disease without esophagitis; M10.9 Gout, unspecified; K80.20 Calculus of gallbladder without cholecystitis without obstruction; Z82.49 Family history of ischemic heart disease and other diseases of the circulatory system; Z83.3 Family history of diabetes mellitus; Z86.73 Personal history of transient ischemic attack (TIA), and cerebral infarction without residual deficits; Z90.710 Acquired absence of both cervix and uterus; Z79.82 Long term (current) use of aspirin; Z79.84 Long term (current) use of oral hypoglycemic drugs; Z79.899 Other long term (current) drug therapy; Z90.49 Acquired absence of other specified parts of digestive tract; Z98.891 History of uterine scar from previous surgery; Z68.26 Body mass index [BMI] 26.0-26.9, adult
CPT/HCPCS: 36415; 71045; 76705; 80048; 80053; 82962; 83735; 83880; 84484; 85025; 85610; 93005; 96374; 96375; 96376; 99285; J0360; J2270; J2405; J3475; J3480; J7060; J7070

== ENCOUNTER 2017-09-09 18:21 | Emergency (ER) | payer MEDICARE, MEDICAID ==
[~2017-09-09] VITALS: Ht 170.2 cm; Wt 80.0 kg
[2017-09-09] MEDS ORDERED: ACETAMINOPHEN 325MG TABLET PO STA (19:10)
[2017-09-09] MEDS ORDERED: CLONIDINE 0.1MG TABLET PO ONE (19:15)
[2017-09-09 21:30] VITALS: BP 196/83
== END 2017-09-09 21:30 | disposition home or self-care (01) ==
LOC: ER 18:54
DX: S00.03XA Contusion of scalp, initial encounter (principal); I10 Essential (primary) hypertension; E11.9 Type 2 diabetes mellitus without complications; W01.0XXA Fall on same level from slipping, tripping and stumbling without subsequent striking against object, initial encounter; Y93.89 Activity, other specified; Y99.8 Other external cause status; Y92.512 Supermarket, store or market as the place of occurrence of the external cause; Z86.73 Personal history of transient ischemic attack (TIA), and cerebral infarction without residual deficits; Z79.82 Long term (current) use of aspirin; Z98.890 Other specified postprocedural states
CPT/HCPCS: 70450; 99284

== ENCOUNTER 2017-12-10 10:59 | Emergency (ER) | payer MEDICARE, MEDICAID ==
[~2017-12-10] VITALS: Ht 162.6 cm; Wt 69.0 kg
[2017-12-10] MEDS ORDERED: SODIUM CHLORIDE 0.9% 1,000 ML IV ONE (11:45)
[2017-12-10] MEDS ORDERED: KETOROLAC 30MG/ML VIAL IV STA (11:45)
[2017-12-10 13:01] LABS: CHLORIDE 106 mEq/L (98-107)
[2017-12-10 13:02] LABS: CLARITY URINE CLEAR (CLEAR); COLOR URINE YELLOW (YELLOW); KETONES URINE NEGATIVE (NEGATIVE); LEUKOCYTE ESTERASE URINE 3+ (NEGATIVE); NITRITE URINE NEGATIVE (NEGATIVE); OCCULT BLOOD URINE 1+ (NEGATIVE); PROTEIN URINE NEGATIVE (NEGATIVE); SPECIFIC GRAVITY URINE 1.006 (1.005-1.030); UROBILINOGEN URINE 0.2 E.U./dL (0.2-1.0)
[2017-12-10 13:06] LABS: BASOPHILS % 0.4 % (0.0-2.0); EOSINOPHILS % 1.9 % (0.0-5.0); HEMATOCRIT. 36.3 % (36.0-48.0); HEMOGLOBIN. 12.2 g/dL (12.0-16.0); LYMPHOCYTES % 40.9 % (20.0-50.0); MEAN CORPUSCULAR HEMOGLOBIN 28.7 pg (28.0-32.0); MEAN CORPUSCULAR VOLUME 85.2 fL (81.0-99.0); MEAN PLATELET VOLUME 7.6 fl (7.4-10.4); MONOCYTES % 6.3 % (2.0-8.0); NEUTROPHILS % 50.5 % (40.0-76.0); PLATELET 241 x1000/uL (130-400); RED BLOOD CELL COUNT 4.26 mill/uL (4.2-5.4); RED CELL DISTRIBUTION WIDTH 15.3 % (11.6-14.6)
[2017-12-10] MEDS ORDERED: CEFTRIAXONE 1 G PREMIX 50 ML IV ONE (13:45)
[2017-12-10] MEDS ORDERED: TRAMADOL 50MG TABLET PO ONE (14:30)
[2017-12-10 16:27] VITALS: BP 143/76
== END 2017-12-10 16:36 | disposition home or self-care (01) ==
LOC: ER 10:59
DX: N39.0 Urinary tract infection, site not specified (principal); E11.9 Type 2 diabetes mellitus without complications; I10 Essential (primary) hypertension; E78.00 Pure hypercholesterolemia, unspecified
CPT/HCPCS: 36415; 71045; 74176; 80053; 81003; 83690; 84484; 85025; 87086; 93005; 96365; 96366; 96375; 99285; J0696; J1885; J7030

== ENCOUNTER 2018-01-23 11:46 | Emergency (ER) | payer MEDICARE, MEDICAID ==
[~2018-01-23] VITALS: Ht 162.6 cm; Wt 76.0 kg
[2018-01-23] MEDS ORDERED: SODIUM CHLORIDE 0.9% 1,000 ML IV ONE (14:19)
[2018-01-23] MEDS ORDERED: ONDANSETRON HCL 4MG/2ML INJ IV STA (14:19)
[2018-01-23] MEDS ORDERED: MORPHINE SULFATE 4 MG/ML CPJ (NOT FOR IM USE) IV STA (14:19)
[2018-01-23 14:29] LABS: CLARITY URINE CLOUDY (CLEAR); COLOR URINE YELLOW (YELLOW); KETONES URINE NEGATIVE (NEGATIVE); LEUKOCYTE ESTERASE URINE 3+ (NEGATIVE); NITRITE URINE NEGATIVE (NEGATIVE); OCCULT BLOOD URINE 1+ (NEGATIVE); PROTEIN URINE NEGATIVE (NEGATIVE); SPECIFIC GRAVITY URINE 1.011 (1.005-1.030); UROBILINOGEN URINE 0.2 E.U./dL (0.2-1.0)
[2018-01-23 14:51] LABS: BASOPHILS % 0.4 % (0.0-2.0); EOSINOPHILS % 0.9 % (0.0-5.0); HEMATOCRIT. 35.9 % (36.0-48.0); LYMPHOCYTES % 48.8 % (20.0-50.0); MEAN CORPUSCULAR VOLUME 86.9 fL (81.0-99.0); MEAN PLATELET VOLUME 8.1 fl (7.4-10.4); MONOCYTES % 5.5 % (2.0-8.0); NEUTROPHILS % 44.4 % (40.0-76.0); PLATELET 233 x1000/uL (130-400); RED BLOOD CELL COUNT 4.13 mill/uL (4.2-5.4); RED CELL DISTRIBUTION WIDTH 15.8 % (11.6-14.6)
[2018-01-23 14:54] LABS: CHLORIDE 102 mEq/L (98-107)
[2018-01-23 14:55] LABS: PARTIAL THROMBOPLASTIN TIME 27.4 sec (23.4-31.0)
[2018-01-23] MEDS ORDERED: CEFTRIAXONE 1 G PREMIX 50 ML IV ONE (15:15)
[2018-01-23 16:24] VITALS: BP 116/62
== END 2018-01-23 18:33 | disposition home or self-care (01) ==
LOC: ER 11:59
DX: N39.0 Urinary tract infection, site not specified (principal); I11.0 Hypertensive heart disease with heart failure; I50.9 Heart failure, unspecified; E11.9 Type 2 diabetes mellitus without complications; R19.7 Diarrhea, unspecified; E78.00 Pure hypercholesterolemia, unspecified; Z79.899 Other long term (current) drug therapy; Z86.73 Personal history of transient ischemic attack (TIA), and cerebral infarction without residual deficits; Z90.710 Acquired absence of both cervix and uterus; Z79.82 Long term (current) use of aspirin
CPT/HCPCS: 36415; 71045; 74176; 80053; 81003; 83690; 85025; 85610; 85730; 87086; 93005; 96361; 96365; 96375; 99285; J0696; J2270; J2405; J7030

== ENCOUNTER 2018-02-14 11:59 | Emergency (ER) | payer MEDICARE, MEDICAID ==
[~2018-02-14] VITALS: Ht 157.5 cm; Wt 70.0 kg
[2018-02-14 12:16] VITALS: BP 142/72
[2018-02-14] MEDS ORDERED: ACETAMINOPHEN 500MG TABLET PO ONE (13:00)
== END 2018-02-14 15:01 | disposition home or self-care (01) ==
LOC: ER 12:10
DX: M54.17 Radiculopathy, lumbosacral region (principal); M47.897 Other spondylosis, lumbosacral region; E78.00 Pure hypercholesterolemia, unspecified; E11.9 Type 2 diabetes mellitus without complications; I11.0 Hypertensive heart disease with heart failure; I50.9 Heart failure, unspecified; J44.9 Chronic obstructive pulmonary disease, unspecified; Z86.73 Personal history of transient ischemic attack (TIA), and cerebral infarction without residual deficits; Z90.710 Acquired absence of both cervix and uterus; Z79.84 Long term (current) use of oral hypoglycemic drugs
CPT/HCPCS: 72110; 73502; 99284

== ENCOUNTER 2018-05-03 18:03 | Inpatient (IN) | payer MEDICARE, MEDICAID ==
[~2018-05-03] VITALS: Ht 162.6 cm; Wt 70.3 kg
[2018-05-03] MEDS ORDERED: MORPHINE SULFATE 2 MG/ML CPJ (NOT FOR IM USE) IV ONE (20:00)
[2018-05-03 20:26] LABS: BASOPHILS % 0.5 % (0.0-2.0); HEMATOCRIT. 35.4 % (36.0-48.0); HEMOGLOBIN. 11.5 g/dL (12.0-16.0); MEAN CORPUSCULAR HEMOGLOBIN 28.1 pg (28.0-32.0); MEAN CORPUSCULAR VOLUME 86.3 fL (81.0-99.0); MEAN PLATELET VOLUME 7.6 fl (7.4-10.4); MONOCYTES % 5.5 % (2.0-8.0); PLATELET 241 x1000/uL (130-400); RED CELL DISTRIBUTION WIDTH 15.6 % (11.6-14.6)
[2018-05-03 20:33] LABS: CHLORIDE 108 mEq/L (98-107)
[2018-05-03 20:36] LABS: PARTIAL THROMBOPLASTIN TIME 27.4 sec (23.4-31.0); PROTHROMBIN TIME 10.2 sec (9.1-11.1)
[2018-05-03] MEDS ORDERED: ONDANSETRON HCL 4MG/2ML INJ IV STA (22:47)
[2018-05-03] MEDS ORDERED: SODIUM CHLORIDE 0.9% 500 ML IV ONE ×2 (22:47→23:45)
[2018-05-03] MEDS ORDERED: MORPHINE SULFATE 4 MG/ML CPJ (NOT FOR IM USE) IV PRN ×3 (23:00)
[2018-05-03] MEDS ORDERED: ACETAMINOPHEN 325MG TABLET PO PRN (23:15)
[2018-05-03] MEDS ORDERED: GUAIFENESIN 200MG/10ML SUGAR FREE UDC PO PRN (23:15)
[2018-05-03] MEDS ORDERED: ONDANSETRON HCL 4MG/2ML INJ IV PRN (23:15)
[2018-05-03] MEDS ORDERED: DIPHENHYDRAMINE 50MG/ML VIAL IV PRN (23:15)
[2018-05-03] MEDS ORDERED: DEXTROSE 50% WATER 50ML SYRINGE IV PRN (23:15)
[2018-05-03] MEDS ORDERED: LORAZEPAM 2MG/ML CPJ IV PRN (23:15)
[2018-05-03] MEDS ORDERED: MAGNESIUM/ALUMINUM HYDROXIDE/SIMETHICONE 30ML UDC PO PRN (23:15)
[2018-05-03] MEDS ORDERED: IPRATROPIUM/ALBUTEROL 0.5-3(2.5)MG/3ML NEB INH PRN (23:15)
[2018-05-03] MEDS ORDERED: TEMAZEPAM 15MG CAPSULE PO PRN (23:45)
[2018-05-03] MEDS ORDERED: MAGNESIUM HYDROXIDE 400MG/5ML 30ML UDC PO PRN (23:45)
[2018-05-04] MEDS ORDERED: OMEPRAZOLE 20MG CAPSULE EXTENDED RELEASE PO SCH (01:03)
[2018-05-04] MEDS: AMLODIPINE 10MG TABLET PO SCH (08:59)
[2018-05-04] MEDS: LISINOPRIL 10MG TABLET PO SCH (08:59)
[2018-05-04] MEDS: TRAMADOL 50MG TABLET PO PRN (08:59)
[2018-05-04] MEDS: CLONIDINE 0.1MG TABLET PO PRN (14:27)
[2018-05-04 15:52] VITALS: BP 153/69
[2018-05-04] MEDS: VENLAFAXINE HCL 37.5MG TABLET PO SCH (16:34)
[2018-05-04] MEDS: DOCUSATE SODIUM 100MG CAPSULE PO SCH (16:35)
[2018-05-04] MEDS: BLOOD SUGAR DIAGNOSTIC STRIP TEST SCH ×2 (16:40→21:00)
[2018-05-04] MEDS: INSULIN LISPRO 100 UNITS/ML SUBCUT SCH ×2 (18:10→22:14)
[2018-05-04] MEDS ORDERED: ATORVASTATIN CALCIUM 20MG TABLET PO SCH (21:00)
[2018-05-04] MEDS: CARVEDILOL 12.5MG TABLET PO SCH (21:58)
[2018-05-04] MEDS: SODIUM CHLORIDE 0.9% INJ 3ML FLUSH IVF SCH (21:58)
[2018-05-05] VITALS: BP 133/64
[2018-05-05] MEDS: TRAMADOL 50MG TABLET PO PRN ×2 (02:43→09:17)
[2018-05-05 04:00] VITALS: BP 150/64
[2018-05-05] MEDS: BLOOD SUGAR DIAGNOSTIC STRIP TEST SCH ×3 (06:37→18:34)
[2018-05-05] MEDS: SODIUM CHLORIDE 0.9% INJ 3ML FLUSH IVF SCH ×2 (06:37→13:33)
[2018-05-05 06:47] LABS: BASOPHILS % 0.5 % (0.0-2.0); EOSINOPHILS % 1.1 % (0.0-5.0); HEMATOCRIT. 38.2 % (36.0-48.0); HEMOGLOBIN. 12.5 g/dL (12.0-16.0); LYMPHOCYTES % 40.6 % (20.0-50.0); MEAN CORPUSCULAR HEMOGLOBIN 28.3 pg (28.0-32.0); MEAN CORPUSCULAR VOLUME 86.3 fL (81.0-99.0); MONOCYTES % 3.7 % (2.0-8.0); NEUTROPHILS % 54.1 % (40.0-76.0); PLATELET 243 x1000/uL (130-400); RED BLOOD CELL COUNT 4.43 mill/uL (4.2-5.4); RED CELL DISTRIBUTION WIDTH 15.5 % (11.6-14.6)
[2018-05-05 06:52] LABS: CHLORIDE 109 mEq/L (98-107)
[2018-05-05] MEDS: INSULIN LISPRO 100 UNITS/ML SUBCUT SCH ×3 (07:47→18:10)
[2018-05-05 08:00] VITALS: BP 169/75
[2018-05-05] MEDS: LISINOPRIL 10MG TABLET PO SCH (09:16)
[2018-05-05] MEDS: CARVEDILOL 12.5MG TABLET PO SCH (09:16)
[2018-05-05] MEDS: DOCUSATE SODIUM 100MG CAPSULE PO SCH ×2 (09:16→19:00)
[2018-05-05] MEDS: VENLAFAXINE HCL 37.5MG TABLET PO SCH (09:17)
[2018-05-05] MEDS: AMLODIPINE 10MG TABLET PO SCH (09:18)
[2018-05-05 12:00] VITALS: BP 172/68
[2018-05-05] MEDS: CLONIDINE 0.1MG TABLET PO PRN (13:33)
[2018-05-05 16:00] VITALS: BP 138/66
[2018-05-05 17:44] VITALS: BP 138/66
== END 2018-05-05 19:20 | disposition home health service (06) | DRG 74 ==
LOC: ER 18:03 → 7WST 23:05 → EDBEDREQ 23:13 → EDBEDREQTM 23:13 → ENRESERV 05-04 13:29 → CANRESERV 05-04 13:29 → ENRESERV 05-04 13:33
PROVIDERS: ADMIT Internal Medicine; ATTEND Internal Medicine
DX: G90.8 Other disorders of autonomic nervous system (principal); S00.83XA Contusion of other part of head, initial encounter; E11.40 Type 2 diabetes mellitus with diabetic neuropathy, unspecified; E78.00 Pure hypercholesterolemia, unspecified; E78.5 Hyperlipidemia, unspecified; F32.9 Major depressive disorder, single episode, unspecified; F41.1 Generalized anxiety disorder; I11.0 Hypertensive heart disease with heart failure; I50.9 Heart failure, unspecified; R04.0 Epistaxis; M10.9 Gout, unspecified; W01.198A Fall on same level from slipping, tripping and stumbling with subsequent striking against other object, initial encounter; Z60.2 Problems related to living alone; K21.9 Gastro-esophageal reflux disease without esophagitis; Z82.49 Family history of ischemic heart disease and other diseases of the circulatory system; Z83.3 Family history of diabetes mellitus; Z90.710 Acquired absence of both cervix and uterus; Y93.89 Activity, other specified; Y92.89 Other specified places as the place of occurrence of the external cause; Y99.8 Other external cause status; Z86.73 Personal history of transient ischemic attack (TIA), and cerebral infarction without residual deficits
CPT/HCPCS: 36415; 71045; 71250; 73030; 80048; 82962; 83880; 84484; 93005; 93970; 96374; 96375; 99285; J1815; J2270; J2405; J7040

== ENCOUNTER 2018-05-21 11:17 | Inpatient (IN) | payer MEDICARE, MEDICAID ==
[~2018-05-21] VITALS: Ht 167.6 cm; Wt 64.9 kg
[2018-05-21] MEDS ORDERED: SODIUM CHLORIDE 0.9% 1,000 ML IV ONE ×2 (11:27→17:30)
[2018-05-21] MEDS ORDERED: ONDANSETRON HCL 4MG/2ML INJ IV STA (11:27)
[2018-05-21 13:03] LABS: CHLORIDE 107 mEq/L (98-107)
[2018-05-21 13:21] LABS: BASOPHILS % 0.6 % (0.0-2.0); EOSINOPHILS % 0.9 % (0.0-5.0); HEMATOCRIT. 40.5 % (36.0-48.0); HEMOGLOBIN. 13.3 g/dL (12.0-16.0); LYMPHOCYTES % 34.9 % (20.0-50.0); MEAN CORPUSCULAR HEMOGLOBIN 28.3 pg (28.0-32.0); MEAN CORPUSCULAR VOLUME 86.3 fL (81.0-99.0); NEUTROPHILS % 58.6 % (40.0-76.0); PLATELET 246 x1000/uL (130-400); RED BLOOD CELL COUNT 4.69 mill/uL (4.2-5.4); RED CELL DISTRIBUTION WIDTH 15.3 % (11.6-14.6)
[2018-05-21] MEDS ORDERED: FAMOTIDINE 20MG TABLET PO ONE (13:30)
[2018-05-21] MEDS ORDERED: ASPIRIN 325MG EC TABLET PO ONE (13:30)
[2018-05-21] MEDS ORDERED: KETOROLAC 15MG/ML VIAL IV ONE (13:30)
[2018-05-21] MEDS ORDERED: NITROGLYCERIN 0.4MG TABLET SL SL ONE (13:45)
[2018-05-21 14:09] LABS: CLARITY URINE CLEAR (CLEAR); COLOR URINE DARK YELLOW (YELLOW); KETONES URINE TRACE (NEGATIVE); LEUKOCYTE ESTERASE URINE 2+ (NEGATIVE); NITRITE URINE NEGATIVE (NEGATIVE); OCCULT BLOOD URINE NEGATIVE (NEGATIVE); PROTEIN URINE 2+ (NEGATIVE); SPECIFIC GRAVITY URINE 1.026 (1.005-1.030)
[2018-05-21 16:00] VITALS: BP 168/73
[2018-05-21] MEDS ORDERED: ONDANSETRON HCL 4MG/2ML INJ IV PRN (17:30)
[2018-05-21] MEDS ORDERED: CLONIDINE 0.1MG TABLET PO PRN ×2 (17:30→22:15)
[2018-05-21] MEDS ORDERED: DEXTROSE 50% WATER 50ML SYRINGE IV PRN (17:30)
[2018-05-21] MEDS: BLOOD SUGAR DIAGNOSTIC STRIP TEST SCH ×2 (17:52→21:00)
[2018-05-21] MEDS: INSULIN LISPRO 100 UNITS/ML SUBCUT SCH ×2 (18:10→21:00)
[2018-05-21] MEDS: METFORMIN HCL 500MG TABLET PO SCH (18:34)
[2018-05-21 20:00] VITALS: BP 144/55
[2018-05-21] MEDS ORDERED: LORAZEPAM 0.5MG TABLET PO PRN (22:15)
[2018-05-21] MEDS ORDERED: DIPHENHYDRAMINE 50MG/ML VIAL IV PRN (22:15)
[2018-05-21] MEDS ORDERED: ACETAMINOPHEN 325MG TABLET PO PRN (22:15)
[2018-05-21] MEDS ORDERED: GUAIFENESIN 200MG/10ML SUGAR FREE UDC PO PRN (22:15)
[2018-05-21] MEDS: ATORVASTATIN CALCIUM 10MG TABLET PO SCH (22:29)
[2018-05-21] MEDS: SODIUM CHLORIDE 0.9% INJ 3ML FLUSH IVF SCH (22:30)
[2018-05-21] MEDS: TRAMADOL 50MG TABLET PO PRN (22:30)
[2018-05-21] MEDS: LATANOPROST 0.005% OPHTH DROPS 2.5ML EACHEYE SCH (22:30)
[2018-05-21] MEDS: CARVEDILOL 12.5MG TABLET PO SCH (22:31)
[2018-05-22] VITALS: BP 134/56
[2018-05-22] MEDS: ONDANSETRON HCL 4MG/2ML INJ IV PRN ×3 (03:23→17:47)
[2018-05-22 04:00] VITALS: BP 147/76
[2018-05-22] MEDS: BLOOD SUGAR DIAGNOSTIC STRIP TEST SCH ×4 (07:14→21:45)
[2018-05-22] MEDS: INSULIN LISPRO 100 UNITS/ML SUBCUT SCH ×4 (07:53→21:00)
[2018-05-22 08:00] VITALS: BP 169/68
[2018-05-22] MEDS: AMLODIPINE 10MG TABLET PO SCH (08:36)
[2018-05-22] MEDS: LAMOTRIGINE 25MG TABLET PO SCH (08:37)
[2018-05-22] MEDS: LISINOPRIL 10MG TABLET PO SCH (08:37)
[2018-05-22] MEDS: VENLAFAXINE HCL 37.5MG SR CAPSULE 24HR PO SCH (08:37)
[2018-05-22] MEDS: METFORMIN HCL 500MG TABLET PO SCH ×2 (08:37→18:19)
[2018-05-22] MEDS: OMEPRAZOLE 20MG CAPSULE EXTENDED RELEASE PO SCH ×2 (08:37→21:45)
[2018-05-22] MEDS: CARVEDILOL 12.5MG TABLET PO SCH ×2 (08:38→21:45)
[2018-05-22] MEDS: ASPIRIN 325MG TABLET PO SCH (08:46)
[2018-05-22] MEDS ORDERED: ASPIRIN 325 MG PO SCH (09:00)
[2018-05-22] MEDS ORDERED: MEDICATION NOT ON FORMULARY EA (Lisinopril 10 MG) PO SCH (09:00)
[2018-05-22] MEDS ORDERED: REGADENOSON 0.4 MG/5 ML IV ONE (10:15)
[2018-05-22] MEDS: CEFTRIAXONE 1 G PREMIX 50 ML IV SCH (11:15)
[2018-05-22 12:00] VITALS: BP 166/71
[2018-05-22] MEDS: SODIUM CHLORIDE 0.9% INJ 3ML FLUSH IVF SCH ×2 (14:45→21:45)
[2018-05-22 16:00] VITALS: BP 162/75
[2018-05-22] MEDS ORDERED: MEDICATION NOT ON FORMULARY EA (Simvastatin 20 MG) PO SCH (17:00)
[2018-05-22] MEDS ORDERED: METFORMIN HCL 500 MG PO SCH (17:00)
[2018-05-22 20:00] VITALS: BP 144/69
[2018-05-22] MEDS: TRAMADOL 50MG TABLET PO PRN (21:44)
[2018-05-22] MEDS: ATORVASTATIN CALCIUM 10MG TABLET PO SCH (21:45)
[2018-05-22] MEDS: LATANOPROST 0.005% OPHTH DROPS 2.5ML EACHEYE SCH (21:45)
[2018-05-23] VITALS: BP 152/75
[2018-05-23 04:00] VITALS: BP 143/62
[2018-05-23] MEDS: INSULIN LISPRO 100 UNITS/ML SUBCUT SCH ×2 (05:54→12:41)
[2018-05-23] MEDS: SODIUM CHLORIDE 0.9% INJ 3ML FLUSH IVF SCH ×2 (05:54→14:54)
[2018-05-23] MEDS: OMEPRAZOLE 20MG CAPSULE EXTENDED RELEASE PO SCH (05:54)
[2018-05-23] MEDS: BLOOD SUGAR DIAGNOSTIC STRIP TEST SCH ×2 (05:54→12:40)
[2018-05-23 08:00] VITALS: BP 144/72
[2018-05-23] MEDS: METFORMIN HCL 500MG TABLET PO SCH (10:26)
[2018-05-23] MEDS: LISINOPRIL 10MG TABLET PO SCH (10:27)
[2018-05-23] MEDS: LAMOTRIGINE 25MG TABLET PO SCH (10:27)
[2018-05-23] MEDS: AMLODIPINE 10MG TABLET PO SCH (10:27)
[2018-05-23] MEDS: VENLAFAXINE HCL 37.5MG SR CAPSULE 24HR PO SCH (10:27)
[2018-05-23] MEDS: CARVEDILOL 12.5MG TABLET PO SCH (10:28)
[2018-05-23] MEDS: ASPIRIN 325MG TABLET PO SCH (10:30)
[2018-05-23] MEDS ORDERED: REGADENOSON 0.4 MG/5 ML IV ONE (13:38)
[2018-05-23] MEDS: CEFTRIAXONE 1 G PREMIX 50 ML IV SCH (14:53)
[2018-05-23 16:00] VITALS: BP 144/62
[2018-05-23 16:10] VITALS: BP 144/72
== END 2018-05-23 16:59 | disposition home or self-care (01) | DRG 463 ==
LOC: ER 11:17 → 7WST 13:43 → EDBEDREQ 13:50 → ENRESERV 14:14
PROVIDERS: ADMIT Internal Medicine; ATTEND Internal Medicine
DX: N39.0 Urinary tract infection, site not specified (principal); E11.40 Type 2 diabetes mellitus with diabetic neuropathy, unspecified; I50.32 Chronic diastolic (congestive) heart failure; I11.0 Hypertensive heart disease with heart failure; M94.0 Chondrocostal junction syndrome [Tietze]; K21.9 Gastro-esophageal reflux disease without esophagitis; R07.89 Other chest pain; F32.9 Major depressive disorder, single episode, unspecified; M10.9 Gout, unspecified; E78.5 Hyperlipidemia, unspecified; E78.00 Pure hypercholesterolemia, unspecified; F41.1 Generalized anxiety disorder; Z82.49 Family history of ischemic heart disease and other diseases of the circulatory system; Z83.3 Family history of diabetes mellitus; Z86.73 Personal history of transient ischemic attack (TIA), and cerebral infarction without residual deficits; Z90.710 Acquired absence of both cervix and uterus; Z90.49 Acquired absence of other specified parts of digestive tract; Z79.82 Long term (current) use of aspirin; Z79.84 Long term (current) use of oral hypoglycemic drugs; Z79.899 Other long term (current) drug therapy
CPT/HCPCS: 36415; 71045; 74176; 78452; 82962; 83880; 84484; 87077; 87186; 93005; 93017; 96361; 96374; 99285; A9500; J0696; J1885; J2405; J2785; J7030

== ENCOUNTER 2018-06-30 07:27 | Emergency (ER) | payer MEDICARE, MEDICAID ==
[~2018-06-30] VITALS: Ht 162.6 cm; Wt 71.0 kg
[2018-06-30] MEDS ORDERED: FAMOTIDINE 20MG/2ML VIAL IV STA (08:04)
[2018-06-30] MEDS ORDERED: ONDANSETRON HCL 4MG/2ML INJ IV STA (08:04)
[2018-06-30] MEDS ORDERED: LISINOPRIL 10MG TABLET PO ONE (08:15)
[2018-06-30] MEDS ORDERED: AMLODIPINE 10MG TABLET PO ONE (08:15)
[2018-06-30 08:40] LABS: BASOPHILS % 0.6 % (0.0-2.0); EOSINOPHILS % 0.9 % (0.0-5.0); HEMOGLOBIN. 11.6 g/dL (12.0-16.0); LYMPHOCYTES % 44.6 % (20.0-50.0); MEAN CORPUSCULAR VOLUME 86.5 fL (81.0-99.0); MEAN PLATELET VOLUME 8.3 fl (7.4-10.4); MONOCYTES % 4.5 % (2.0-8.0); NEUTROPHILS % 49.4 % (40.0-76.0); PLATELET 222 x1000/uL (130-400); RED BLOOD CELL COUNT 4.16 mill/uL (4.2-5.4)
[2018-06-30 08:46] LABS: CHLORIDE 110 mEq/L (98-107)
[2018-06-30 08:48] LABS: PROTHROMBIN TIME 10.2 sec (9.1-11.1)
[2018-06-30 10:01] LABS: CLARITY URINE CLEAR (CLEAR); COLOR URINE YELLOW (YELLOW); KETONES URINE NEGATIVE (NEGATIVE); LEUKOCYTE ESTERASE URINE NEGATIVE (NEGATIVE); NITRITE URINE NEGATIVE (NEGATIVE); OCCULT BLOOD URINE NEGATIVE (NEGATIVE); PROTEIN URINE 1+ (NEGATIVE); SPECIFIC GRAVITY URINE 1.011 (1.005-1.030); UROBILINOGEN URINE 0.2 E.U./dL (0.2-1.0)
[2018-06-30 12:03] VITALS: BP 184/76
== END 2018-06-30 12:17 | disposition home or self-care (01) ==
LOC: ER 07:50
DX: R10.9 Unspecified abdominal pain (principal); R11.10 Vomiting, unspecified; R19.7 Diarrhea, unspecified; I11.0 Hypertensive heart disease with heart failure; I50.9 Heart failure, unspecified; E11.9 Type 2 diabetes mellitus without complications; Z79.82 Long term (current) use of aspirin; Z86.73 Personal history of transient ischemic attack (TIA), and cerebral infarction without residual deficits
CPT/HCPCS: 36415; 71045; 74176; 80053; 81003; 83690; 83880; 84484; 85025; 85610; 93005; 96374; 96375; 99284; J2405; J3490

== ENCOUNTER 2018-09-18 09:47 | Emergency (ER) | payer MEDICARE, MEDICAID ==
[~2018-09-18] VITALS: Ht 162.6 cm; Wt 68.0 kg
[~2018-09-18 09:47] MED LIST changes: -ASPI-1159 PO; +ASPI-1393 PO
[2018-09-18 10:23] LABS: BASOPHILS % 0.5 % (0.0-2.0); EOSINOPHILS % 0.4 % (0.0-5.0); HEMATOCRIT. 40.2 % (36.0-48.0); HEMOGLOBIN. 13.2 g/dL (12.0-16.0); LYMPHOCYTES % 46.9 % (20.0-50.0); MEAN CORPUSCULAR HEMOGLOBIN 28.5 pg (28.0-32.0); MEAN PLATELET VOLUME 7.5 fl (7.4-10.4); MONOCYTES % 4.3 % (2.0-8.0); NEUTROPHILS % 47.9 % (40.0-76.0); PLATELET 231 x1000/uL (130-400); RED BLOOD CELL COUNT 4.62 mill/uL (4.2-5.4); RED CELL DISTRIBUTION WIDTH 15.4 % (11.6-14.6)
[2018-09-18 10:30] LABS: CHLORIDE 108 mEq/L (98-107)
[2018-09-18 10:53] LABS: CLARITY URINE CLEAR (CLEAR); COLOR URINE YELLOW (YELLOW); KETONES URINE NEGATIVE (NEGATIVE); LEUKOCYTE ESTERASE URINE NEGATIVE (NEGATIVE); NITRITE URINE NEGATIVE (NEGATIVE); OCCULT BLOOD URINE NEGATIVE (NEGATIVE); PH URINE 5.5 (4.5-8.0); PROTEIN URINE 2+ (NEGATIVE); UROBILINOGEN URINE 0.2 E.U./dL (0.2-1.0)
[2018-09-18 15:04] VITALS: BP 140/82
== END 2018-09-18 15:05 | disposition home or self-care (01) ==
LOC: ER 09:47
DX: R07.89 Other chest pain (principal); F41.9 Anxiety disorder, unspecified; I11.0 Hypertensive heart disease with heart failure; I50.9 Heart failure, unspecified; E11.9 Type 2 diabetes mellitus without complications; E78.00 Pure hypercholesterolemia, unspecified; Z86.73 Personal history of transient ischemic attack (TIA), and cerebral infarction without residual deficits; Z79.82 Long term (current) use of aspirin; Z79.899 Other long term (current) drug therapy
CPT/HCPCS: 36415; 71045; 80048; 82962; 83880; 84484; 93005; 99284

== ENCOUNTER 2018-12-27 11:42 | Emergency (ER) | payer MEDICARE, MEDICAID ==
[~2018-12-27] VITALS: Ht 162.6 cm; Wt 68.0 kg
[2018-12-27] MEDS ORDERED: IBUPROFEN 600MG TABLET PO STA (12:09)
[2018-12-27] MEDS ORDERED: SODIUM CHLORIDE 0.9% 1,000 ML IV ONE (12:09)
[2018-12-27] MEDS ORDERED: IBUPROFEN 600MG TABLET PO ONE (12:30)
[2018-12-27 12:35] LABS: BASOPHILS % 0.8 % (0.0-2.0); EOSINOPHILS % 0.9 % (0.0-5.0); HEMATOCRIT. 38.4 % (36.0-48.0); HEMOGLOBIN. 12.9 g/dL (12.0-16.0); LYMPHOCYTES % 47.1 % (20.0-50.0); MEAN CORPUSCULAR HEMOGLOBIN 28.7 pg (28.0-32.0); MEAN CORPUSCULAR VOLUME 85.4 fL (81.0-99.0); MONOCYTES % 6.1 % (2.0-8.0); NEUTROPHILS % 45.1 % (40.0-76.0); PLATELET 231 x1000/uL (130-400); RED BLOOD CELL COUNT 4.49 mill/uL (4.2-5.4); RED CELL DISTRIBUTION WIDTH 15.1 % (11.6-14.6)
[2018-12-27 12:41] LABS: CLARITY URINE CLEAR (CLEAR); COLOR URINE YELLOW (YELLOW); KETONES URINE NEGATIVE (NEGATIVE); LEUKOCYTE ESTERASE URINE 1+ (NEGATIVE); NITRITE URINE NEGATIVE (NEGATIVE); OCCULT BLOOD URINE NEGATIVE (NEGATIVE); PROTEIN URINE 1+ (NEGATIVE); UROBILINOGEN URINE 0.2 E.U./dL (0.2-1.0)
[2018-12-27 12:44] LABS: CHLORIDE 109 mEq/L (98-107)
[2018-12-27 12:50] LABS: PROTHROMBIN TIME 10.4 sec (9.6-11.0)
[2018-12-27] MEDS ORDERED: CEFTRIAXONE 1 G PREMIX 50 ML IV NR (12:57)
[2018-12-27] MEDS ORDERED: POTASSIUM CHLORIDE 20MEQ TABLET SR PO NR (13:00)
[2018-12-27 15:01] VITALS: BP 128/75
== END 2018-12-27 15:08 | disposition home or self-care (01) ==
LOC: ER 11:42
DX: N12 Tubulo-interstitial nephritis, not specified as acute or chronic (principal); E87.6 Hypokalemia; Z86.73 Personal history of transient ischemic attack (TIA), and cerebral infarction without residual deficits; E11.9 Type 2 diabetes mellitus without complications; I10 Essential (primary) hypertension; Z87.440 Personal history of urinary (tract) infections; Z90.710 Acquired absence of both cervix and uterus; Z79.82 Long term (current) use of aspirin; Z79.899 Other long term (current) drug therapy
CPT/HCPCS: 36415; 80053; 81003; 83605; 83690; 85025; 85610; 87086; 96361; 96365; 96366; 99283; J0696; J7030

== ENCOUNTER 2019-05-30 09:26 | Emergency (ER) | payer MEDICARE, MEDICAID ==
[~2019-05-30] VITALS: Ht 165.1 cm; Wt 70.0 kg
[~2019-05-30 09:26] MED LIST changes: -ASPI-1393 PO; +ASPI-1497 PO; +SIMV-43 PO; -SIMV20TA6 PO
[2019-05-30] MEDS ORDERED: SODIUM CHLORIDE 0.9% 1,000 ML IV ONE (10:57)
[2019-05-30 11:09] LABS: EOSINOPHILS % 0.5 % (0.0-5.0); HEMATOCRIT. 41.8 % (36.0-48.0); HEMOGLOBIN. 13.6 g/dL (12.0-16.0); LYMPHOCYTES % 43.3 % (20.0-50.0); MEAN CORPUSCULAR HEMOGLOBIN 28.4 pg (28.0-32.0); MEAN CORPUSCULAR VOLUME 87.2 fL (81.0-99.0); MEAN PLATELET VOLUME 8.8 fl (7.4-10.4); MONOCYTES % 5.3 % (2.0-8.0); NEUTROPHILS % 49.9 % (40.0-76.0); PLATELET 233 x1000/uL (130-400); RED BLOOD CELL COUNT 4.79 mill/uL (4.2-5.4); RED CELL DISTRIBUTION WIDTH 15.4 % (11.6-14.6)
[2019-05-30 11:12] LABS: CHLORIDE 110 mEq/L (98-107)
[2019-05-30 11:14] LABS: PROTHROMBIN TIME 10.5 sec (9.6-11.0)
[2019-05-30] MEDS ORDERED: CLONIDINE 0.1MG TABLET PO ONE (12:30)
[2019-05-30 13:10] LABS: CLARITY URINE CLOUDY (CLEAR); COLOR URINE YELLOW (YELLOW); KETONES URINE NEGATIVE (NEGATIVE); LEUKOCYTE ESTERASE URINE 3+ (NEGATIVE); NITRITE URINE NEGATIVE (NEGATIVE); OCCULT BLOOD URINE TRACE (NEGATIVE); PROTEIN URINE 1+ (NEGATIVE); SPECIFIC GRAVITY URINE 1.008 (1.005-1.030); UROBILINOGEN URINE 0.2 E.U./dL (0.2-1.0)
[2019-05-30] MEDS ORDERED: CEFTRIAXONE 1 G PREMIX 50 ML IV ONE (14:00)
[2019-05-30 16:01] VITALS: BP 144/84
[2019-05-30] MEDS ORDERED: IOHEXOL-300 100 ML BOTTLE ONE (22:42)
== END 2019-05-30 17:59 | disposition home or self-care (01) ==
LOC: ER 09:40
DX: N30.00 Acute cystitis without hematuria (principal); K62.89 Other specified diseases of anus and rectum; R19.7 Diarrhea, unspecified; I11.0 Hypertensive heart disease with heart failure; I50.9 Heart failure, unspecified; E11.9 Type 2 diabetes mellitus without complications; Z90.49 Acquired absence of other specified parts of digestive tract; Z90.710 Acquired absence of both cervix and uterus; Z79.899 Other long term (current) drug therapy
CPT/HCPCS: 36415; 74177; 80053; 81003; 83690; 84484; 85025; 85610; 87086; 93005; 96361; 96365; 96366; 99284; J0696; J7030; Q9967

== ENCOUNTER 2019-06-20 11:36 | Emergency (ER) | payer MEDICARE, MEDICAID ==
[~2019-06-20] VITALS: Ht 162.6 cm; Wt 65.0 kg
[2019-06-20] MEDS ORDERED: KETOROLAC 60MG/2ML VIAL IM ONE (12:15)
[2019-06-20 15:10] VITALS: BP 136/76
== END 2019-06-20 15:12 | disposition home or self-care (01) ==
LOC: ER 11:36
DX: M10.9 Gout, unspecified (principal); M79.674 Pain in right toe(s); I11.0 Hypertensive heart disease with heart failure; E78.00 Pure hypercholesterolemia, unspecified; E11.9 Type 2 diabetes mellitus without complications; I50.9 Heart failure, unspecified; H40.9 Unspecified glaucoma; Z79.899 Other long term (current) drug therapy; Z79.82 Long term (current) use of aspirin; Z90.49 Acquired absence of other specified parts of digestive tract; Z90.710 Acquired absence of both cervix and uterus; Z98.890 Other specified postprocedural states
CPT/HCPCS: 96372; 99283; J1885

== ENCOUNTER 2020-01-28 10:56 | Emergency (ER) | payer MEDICARE, MEDICAID ==
[~2020-01-28] VITALS: Ht 170.2 cm; Wt 64.0 kg
[2020-01-28] MEDS ORDERED: ACETAMINOPHEN 325MG TABLET PO ONE (11:30)
[2020-01-28] MEDS ORDERED: ASPIRIN 81MG TABLET PO ONE (11:30)
[2020-01-28] MEDS ORDERED: IPRATROPIUM/ALBUTEROL 0.5-3(2.5)MG/3ML NEB HHN ONE (11:30)
[2020-01-28 12:04] LABS: BASOPHILS % 0.5 % (0.0-2.0); EOSINOPHILS % 0.9 % (0.0-5.0); HEMOGLOBIN. 13.3 g/dL (12.0-16.0); MEAN CORPUSCULAR HEMOGLOBIN 28.6 pg (28.0-32.0); MEAN CORPUSCULAR VOLUME 86.4 fL (81.0-99.0); MEAN PLATELET VOLUME 8.1 fl (7.4-10.4); MONOCYTES % 5.4 % (2.0-8.0); NEUTROPHILS % 48.2 % (40.0-76.0); PLATELET 216 x1000/uL (130-400); RED BLOOD CELL COUNT 4.63 mill/uL (4.2-5.4); RED CELL DISTRIBUTION WIDTH 15.3 % (11.6-14.6)
[2020-01-28 12:07] LABS: CHLORIDE 108 mEq/L (98-107)
[2020-01-28] MEDS ORDERED: POTASSIUM CHLORIDE 20MEQ TABLET SR PO ONE (12:45)
[2020-01-28 14:03] VITALS: BP 170/79
== END 2020-01-28 14:05 | disposition home or self-care (01) ==
LOC: ER 11:07
DX: R07.89 Other chest pain (principal); I11.0 Hypertensive heart disease with heart failure; I50.9 Heart failure, unspecified; E11.9 Type 2 diabetes mellitus without complications; E78.00 Pure hypercholesterolemia, unspecified; Z86.73 Personal history of transient ischemic attack (TIA), and cerebral infarction without residual deficits; Z90.710 Acquired absence of both cervix and uterus; J44.9 Chronic obstructive pulmonary disease, unspecified; Z79.899 Other long term (current) drug therapy
CPT/HCPCS: 36415; 71045; 80053; 83880; 84484; 85025; 93005; 99285

== ENCOUNTER 2020-02-15 09:47 | Inpatient (IN) | payer MEDICARE, MEDICAID ==
[~2020-02-15] VITALS: Ht 162.6 cm; Wt 73.1 kg
[2020-02-15 10:42] LABS: BASOPHILS % 0.9 % (0.0-2.0); EOSINOPHILS % 0.8 % (0.0-5.0); HEMATOCRIT. 40.1 % (36.0-48.0); HEMOGLOBIN. 13.3 g/dL (12.0-16.0); LYMPHOCYTES % 46.2 % (20.0-50.0); MEAN CORPUSCULAR HEMOGLOBIN 28.5 pg (28.0-32.0); MEAN CORPUSCULAR VOLUME 86.2 fL (81.0-99.0); MEAN PLATELET VOLUME 8.1 fl (7.4-10.4); MONOCYTES % 4.9 % (2.0-8.0); NEUTROPHILS % 47.2 % (40.0-76.0); PLATELET 213 x1000/uL (130-400); RED BLOOD CELL COUNT 4.65 mill/uL (4.2-5.4); RED CELL DISTRIBUTION WIDTH 15.1 % (11.6-14.6)
[2020-02-15 10:50] LABS: CHLORIDE 111 mEq/L (98-107)
[2020-02-15] MEDS ORDERED: MORPHINE SULFATE 4 MG/ML CPJ (NOT FOR IM USE) IV STA (11:29)
[2020-02-15] MEDS ORDERED: ONDANSETRON HCL 4MG/2ML INJ IV STA (11:29)
[2020-02-15] MEDS ORDERED: ASPIRIN 81MG TABLET PO ONE (11:30)
[2020-02-15] MEDS ORDERED: NITROGLYCERIN OINT 1GM/INCH UDPKT TD ONE (11:30)
[2020-02-15] MEDS ORDERED: ONDANSETRON HCL 4MG/2ML INJ IV PRN (13:30)
[2020-02-15] MEDS: AMLODIPINE 10MG TABLET PO SCH (14:16)
[2020-02-15 15:23] LABS: CLARITY URINE CLEAR (CLEAR); COLOR URINE YELLOW (YELLOW); KETONES URINE NEGATIVE (NEGATIVE); LEUKOCYTE ESTERASE URINE 1+ (NEGATIVE); NITRITE URINE NEGATIVE (NEGATIVE); OCCULT BLOOD URINE NEGATIVE (NEGATIVE); PROTEIN URINE 2+ (NEGATIVE); SPECIFIC GRAVITY URINE 1.011 (1.005-1.030); UROBILINOGEN URINE 0.2 E.U./dL (0.2-1.0)
[2020-02-15 15:56] VITALS: BP 145/78
[2020-02-15 16:00] VITALS: BP 156/70
[2020-02-15] MEDS: ACETAMINOPHEN 325MG TABLET PO PRN (16:26)
[2020-02-15] MEDS ORDERED: TRAMADOL 50MG TABLET PO PRN (16:30)
[2020-02-15] MEDS: LISINOPRIL 10MG TABLET PO SCH (17:19)
[2020-02-15] MEDS: METFORMIN HCL 500MG TABLET PO SCH (17:20)
[2020-02-15] MEDS: ATORVASTATIN CALCIUM 20MG TABLET PO SCH (20:59)
[2020-02-15] MEDS: LATANOPROST 0.005% OPHTH DROPS 2.5ML BOTHEYE SCH (21:04)
[2020-02-16] VITALS: BP 142/91
[2020-02-16 04:00] VITALS: BP 147/65
[2020-02-16 08:00] VITALS: BP 136/75
[2020-02-16] MEDS: AMLODIPINE 10MG TABLET PO SCH (08:16)
[2020-02-16] MEDS: LISINOPRIL 10MG TABLET PO SCH (08:17)
[2020-02-16] MEDS: METFORMIN HCL 500MG TABLET PO SCH ×2 (08:17→18:17)
[2020-02-16] MEDS: ACETAMINOPHEN 325MG TABLET PO PRN (08:23)
[2020-02-16 12:00] VITALS: BP 142/73
[2020-02-16] MEDS ORDERED: LACTULOSE 20G/30ML UDC PO NR (13:45)
[2020-02-16] MEDS ORDERED: LORAZEPAM 2MG/ML CPJ IV NR (14:15)
[2020-02-16 16:00] VITALS: BP 128/71
[2020-02-16] MEDS ORDERED: IPRATROPIUM/ALBUTEROL 0.5-3(2.5)MG/3ML NEB HHN PRN (18:00)
[2020-02-16 20:00] VITALS: BP 145/78
[2020-02-16 20:43] LABS: PARTIAL THROMBOPLASTIN TIME 28.3 sec (23.4-31.0); PROTHROMBIN TIME 10.3 sec (9.6-11.0)
[2020-02-16] MEDS: DEXAMETHASONE 4MG/ML 1ML VIAL IV SCH (21:14)
[2020-02-16] MEDS: FAMOTIDINE 20MG/2ML VIAL IV SCH (21:14)
[2020-02-16] MEDS: ATORVASTATIN CALCIUM 20MG TABLET PO SCH (21:14)
[2020-02-16] MEDS: LATANOPROST 0.005% OPHTH DROPS 2.5ML BOTHEYE SCH (21:14)
[2020-02-17] VITALS (62 sets, daily range): BP systolic 67–197; BP diastolic 34–150
[2020-02-17 02:03] LABS: *AMPHETAMINES SCREEN URINE NEGATIVE (NEGATIVE); *BARBITURATES SCREEN URINE NEGATIVE (NEGATIVE); *BENZODIAZEPINES SCREEN URINE NEGATIVE (NEGATIVE); *COCAINE SCREEN URINE NEGATIVE (NEGATIVE); CANNABINOID URINE SCREEN NEGATIVE (NEGATIVE); METHADONE URINE SCREEN NEGATIVE (NEGATIVE); OPIATES URINE SCREEN NEGATIVE (NEGATIVE); PHENCYCLIDINE URINE SCREEN NEGATIVE (NEGATIVE)
[2020-02-17] MEDS: DEXAMETHASONE 4MG/ML 1ML VIAL IV SCH ×4 (03:03→21:42)
[2020-02-17] MEDS ORDERED: THROMBIN (BOVINE) 5000 UNITS/VIAL TOP ONE (06:00)
[2020-02-17] MEDS ORDERED: BACITRACIN 50,000 UNITS/VIAL ONE (06:01)
[2020-02-17] MEDS ORDERED: ROCURONIUM BROMIDE 10MG/ML VIAL 5ML IV ONE (07:12)
[2020-02-17] MEDS ORDERED: PROPOFOL 200MG/20ML VIAL IV ONE (07:12)
[2020-02-17] MEDS ORDERED: DEXAMETHASONE 4MG/ML 1ML VIAL ONE (07:13)
[2020-02-17] MEDS: METFORMIN HCL 500MG TABLET PO SCH ×2 (07:40→16:45)
[2020-02-17] MEDS ORDERED: CEFAZOLIN SODIUM 1000MG/VIAL ONE (07:42)
[2020-02-17] MEDS ORDERED: HYDROMORPHONE HCL/PF 2MG/ML (OR) ONE (07:43)
[2020-02-17] MEDS ORDERED: EPHEDRINE SULFATE 50MG/ML VIAL ONE (07:50)
[2020-02-17] MEDS ORDERED: METOPROLOL TARTRATE 5MG/5ML VIAL IV ONE ×2 (07:57→08:07)
[2020-02-17] MEDS ORDERED: NEOSTIGMINE METHYLSULFATE 1MG/ML 10 ML VIAL ONE (09:19)
[2020-02-17] MEDS ORDERED: GLYCOPYRROLATE 0.2 MG/ML 2ML VIAL ONE (09:19)
[2020-02-17] MEDS: AMLODIPINE 10MG TABLET PO SCH (10:00)
[2020-02-17] MEDS: LISINOPRIL 10MG TABLET PO SCH (10:00)
[2020-02-17] MEDS: MORPHINE SULFATE 4 MG/ML CPJ (NOT FOR IM USE) IV PRN ×2 (10:19→15:13)
[2020-02-17] MEDS: NICARDIPINE 100 MG in SODIUM CHLORIDE 0.9% 60 ML IV PRN ×2 (10:23→16:47)
[2020-02-17] MEDS ORDERED: MORPHINE SULFATE 4 MG/ML CPJ (NOT FOR IM USE) IV NR (10:35)
[2020-02-17] MEDS ORDERED: METOPROLOL TARTRATE 5MG/5ML VIAL IV PRN (10:59)
[2020-02-17] MEDS ORDERED: ONDANSETRON INJ IV PRN (11:00)
[2020-02-17] MEDS ORDERED: NALOXONE INJ IV PRN (11:00)
[2020-02-17] MEDS ORDERED: DIPHENHYDRAMINE INJ IV PRN (11:00)
[2020-02-17] MEDS: DEXT 5%/LACTATED RINGERS 1,000 ML IV SCH ×2 (11:14→22:25)
[2020-02-17] MEDS: HYDROMORPHONE PCA 10MG/50ML IV PRN (11:25)
[2020-02-17] MEDS: FAMOTIDINE 20MG/2ML VIAL IV SCH ×2 (11:55→21:42)
[2020-02-17] MEDS ORDERED: CEFAZOLIN SODIUM 1000MG/VIAL IV SCH (14:00)
[2020-02-17] MEDS: CEFAZOLIN 1000MG PREMIX 50 ML IV SCH (15:01)
[2020-02-17] MEDS: MONTELUKAST SODIUM 10MG TABLET PO SCH (16:45)
[2020-02-17 20:38] LABS: HEMATOCRIT. 45.3 % (36.0-48.0); HEMOGLOBIN. 14.8 g/dL (12.0-16.0); MEAN CORPUSCULAR HEMOGLOBIN 28.2 pg (28.0-32.0); MEAN CORPUSCULAR VOLUME 86.3 fL (81.0-99.0); MEAN PLATELET VOLUME 8.3 fl (7.4-10.4); PLATELET 237 x1000/uL (130-400); RED BLOOD CELL COUNT 5.24 mill/uL (4.2-5.4); RED CELL DISTRIBUTION WIDTH 15.4 % (11.6-14.6)
[2020-02-17] MEDS: ATORVASTATIN CALCIUM 20MG TABLET PO SCH ×2 (21:00→21:42)
[2020-02-17 21:14] LABS: CHLORIDE 109 mEq/L (98-107)
[2020-02-17 21:46] LABS: PLATELET ESTIMATE NORMAL
[2020-02-18] VITALS (91 sets, daily range): BP systolic 66–153; BP diastolic 52–119
[2020-02-18] MEDS: CEFAZOLIN 1000MG PREMIX 50 ML IV SCH ×4 (00:02→23:09)
[2020-02-18] MEDS: LATANOPROST 0.005% OPHTH DROPS 2.5ML BOTHEYE SCH ×2 (00:05→20:47)
[2020-02-18] MEDS: DEXAMETHASONE 4MG/ML 1ML VIAL IV SCH ×4 (03:53→20:47)
[2020-02-18 05:22] LABS: BASOPHILS % 0.1 % (0.0-2.0); HEMATOCRIT. 45.2 % (36.0-48.0); HEMOGLOBIN. 14.7 g/dL (12.0-16.0); LYMPHOCYTES % 7.8 % (20.0-50.0); MEAN CORPUSCULAR HEMOGLOBIN 28.1 pg (28.0-32.0); MEAN CORPUSCULAR VOLUME 86.3 fL (81.0-99.0); MEAN PLATELET VOLUME 8.6 fl (7.4-10.4); MONOCYTES % 4.7 % (2.0-8.0); NEUTROPHILS % 87.4 % (40.0-76.0); PLATELET 236 x1000/uL (130-400); RED BLOOD CELL COUNT 5.24 mill/uL (4.2-5.4); RED CELL DISTRIBUTION WIDTH 16.2 % (11.6-14.6)
[2020-02-18] MEDS: NICARDIPINE 100 MG in SODIUM CHLORIDE 0.9% 60 ML IV PRN ×2 (06:37→21:08)
[2020-02-18] MEDS: METFORMIN HCL 500MG TABLET PO SCH ×2 (07:00→16:02)
[2020-02-18] MEDS: FAMOTIDINE 20MG/2ML VIAL IV SCH ×2 (08:37→20:47)
[2020-02-18] MEDS: DEXT 5%/LACTATED RINGERS 1,000 ML IV SCH ×2 (08:38→22:46)
[2020-02-18] MEDS: AMLODIPINE 10MG TABLET PO SCH (08:38)
[2020-02-18] MEDS: LISINOPRIL 10MG TABLET PO SCH (08:38)
[2020-02-18] MEDS ORDERED: HYDROMORPHONE HCL/PF 2MG/ML CPJ IV NR (09:45)
[2020-02-18] MEDS ORDERED: DEXTROSE 50% WATER 50ML SYRINGE IV PRN (11:15)
[2020-02-18] MEDS: BLOOD SUGAR DIAGNOSTIC STRIP TEST SCH ×3 (11:20→21:08)
[2020-02-18] MEDS: INSULIN LISPRO 100 UNITS/ML SUBCUT SCH ×3 (11:41→21:22)
[2020-02-18] MEDS ORDERED: INSULIN LISPRO 100 UNITS/ML SUBCUT SCH (12:00)
[2020-02-18] MEDS ORDERED: INSULIN GLARGINE UD 100 UNITS/ML SYR SUBCUT NR (12:30)
[2020-02-18] MEDS: MONTELUKAST SODIUM 10MG TABLET PO SCH (16:02)
[2020-02-18] MEDS: HYDROMORPHONE PCA 10MG/50ML IV PRN (16:28)
[2020-02-18] MEDS: ATORVASTATIN CALCIUM 20MG TABLET PO SCH (20:51)
[2020-02-18] MEDS: INSULIN GLARGINE UD 100 UNITS/ML SYR SUBCUT SCH (23:03)
[2020-02-19] VITALS (85 sets, daily range): BP systolic 25–148; BP diastolic 12–125
[2020-02-19 04:35] LABS: HEMATOCRIT. 39.4 % (36.0-48.0); HEMOGLOBIN. 12.7 g/dL (12.0-16.0); MEAN CORPUSCULAR HEMOGLOBIN 27.8 pg (28.0-32.0); MEAN CORPUSCULAR VOLUME 86.3 fL (81.0-99.0); MEAN PLATELET VOLUME 8.4 fl (7.4-10.4); PLATELET 193 x1000/uL (130-400); RED BLOOD CELL COUNT 4.57 mill/uL (4.2-5.4); RED CELL DISTRIBUTION WIDTH 15.8 % (11.6-14.6)
[2020-02-19 04:44] LABS: CHLORIDE 109 mEq/L (98-107)
[2020-02-19] MEDS: NICARDIPINE 100 MG in SODIUM CHLORIDE 0.9% 60 ML IV PRN ×3 (04:52→21:12)
[2020-02-19] MEDS: DEXAMETHASONE 4MG/ML 1ML VIAL IV SCH ×2 (04:55→09:19)
[2020-02-19] MEDS: METFORMIN HCL 500MG TABLET PO SCH ×2 (06:24→17:00)
[2020-02-19] MEDS: BLOOD SUGAR DIAGNOSTIC STRIP TEST SCH ×3 (06:35→21:06)
[2020-02-19] MEDS: INSULIN LISPRO 100 UNITS/ML SUBCUT SCH ×4 (06:35→21:15)
[2020-02-19 08:51] LABS: PLATELET ESTIMATE NORMAL
[2020-02-19] MEDS: LISINOPRIL 10MG TABLET PO SCH (09:00)
[2020-02-19] MEDS: AMLODIPINE 10MG TABLET PO SCH ×2 (09:00→09:19)
[2020-02-19] MEDS: CEFAZOLIN 1000MG PREMIX 50 ML IV SCH (09:18)
[2020-02-19] MEDS: DEXT 5%/LACTATED RINGERS 1,000 ML IV SCH ×2 (09:18→19:27)
[2020-02-19] MEDS: FAMOTIDINE 20MG/2ML VIAL IV SCH ×2 (09:19→21:14)
[2020-02-19] MEDS: INSULIN GLARGINE UD 100 UNITS/ML SYR SUBCUT SCH ×2 (09:25→21:17)
[2020-02-19] MEDS: HYDROMORPHONE PCA 10MG/50ML IV PRN (15:08)
[2020-02-19] MEDS: MONTELUKAST SODIUM 10MG TABLET PO SCH (17:00)
[2020-02-19] MEDS: ATORVASTATIN CALCIUM 20MG TABLET PO SCH (21:00)
[2020-02-19] MEDS: LATANOPROST 0.005% OPHTH DROPS 2.5ML BOTHEYE SCH (21:14)
[2020-02-20] VITALS (67 sets, daily range): BP systolic 93–158; BP diastolic 47–109
[2020-02-20] MEDS: BLOOD SUGAR DIAGNOSTIC STRIP TEST SCH ×5 (06:23→21:56)
[2020-02-20] MEDS: METFORMIN HCL 500MG TABLET PO SCH ×2 (06:31→17:48)
[2020-02-20] MEDS: NICARDIPINE 100 MG in SODIUM CHLORIDE 0.9% 60 ML IV PRN (06:31)
[2020-02-20] MEDS: INSULIN LISPRO 100 UNITS/ML SUBCUT SCH ×4 (06:32→21:00)
[2020-02-20] MEDS: DEXT 5%/LACTATED RINGERS 1,000 ML IV SCH ×2 (06:47→17:49)
[2020-02-20 08:24] LABS: BASOPHILS % 0.3 % (0.0-2.0); HEMATOCRIT. 35.5 % (36.0-48.0); HEMOGLOBIN. 11.6 g/dL (12.0-16.0); LYMPHOCYTES % 10.6 % (20.0-50.0); MEAN CORPUSCULAR HEMOGLOBIN 28.1 pg (28.0-32.0); MEAN CORPUSCULAR VOLUME 85.8 fL (81.0-99.0); NEUTROPHILS % 84.1 % (40.0-76.0); PLATELET 183 x1000/uL (130-400); RED BLOOD CELL COUNT 4.14 mill/uL (4.2-5.4); RED CELL DISTRIBUTION WIDTH 15.8 % (11.6-14.6)
[2020-02-20 08:37] LABS: CHLORIDE 109 mEq/L (98-107)
[2020-02-20] MEDS: AMLODIPINE 10MG TABLET PO SCH (09:18)
[2020-02-20] MEDS: LISINOPRIL 10MG TABLET PO SCH (09:18)
[2020-02-20] MEDS: FAMOTIDINE 20MG/2ML VIAL IV SCH ×2 (09:18→20:40)
[2020-02-20] MEDS: INSULIN GLARGINE UD 100 UNITS/ML SYR SUBCUT SCH ×2 (09:20→21:56)
[2020-02-20] MEDS: CLONIDINE 0.1MG TABLET PO SCH ×2 (16:01→19:30)
[2020-02-20] MEDS: MONTELUKAST SODIUM 10MG TABLET PO SCH (17:48)
[2020-02-20] MEDS: ATORVASTATIN CALCIUM 20MG TABLET PO SCH (20:40)
[2020-02-20] MEDS: LATANOPROST 0.005% OPHTH DROPS 2.5ML BOTHEYE SCH (21:33)
[2020-02-21] VITALS: BP 136/61
[2020-02-21] MEDS: DEXT 5%/LACTATED RINGERS 1,000 ML IV SCH ×2 (01:17→15:26)
[2020-02-21] MEDS: CLONIDINE 0.1MG TABLET PO SCH ×4 (01:17→21:41)
[2020-02-21 04:00] VITALS: BP 141/69
[2020-02-21] MEDS: BLOOD SUGAR DIAGNOSTIC STRIP TEST SCH ×4 (06:33→21:00)
[2020-02-21 06:43] LABS: BASOPHILS % 0.1 % (0.0-2.0); HEMATOCRIT. 36.6 % (36.0-48.0); HEMOGLOBIN. 12.3 g/dL (12.0-16.0); LYMPHOCYTES % 19.2 % (20.0-50.0); MEAN CORPUSCULAR HEMOGLOBIN 28.5 pg (28.0-32.0); MEAN CORPUSCULAR VOLUME 84.8 fL (81.0-99.0); MEAN PLATELET VOLUME 7.7 fl (7.4-10.4); MONOCYTES % 6.6 % (2.0-8.0); NEUTROPHILS % 74.1 % (40.0-76.0); PLATELET 196 x1000/uL (130-400); RED BLOOD CELL COUNT 4.32 mill/uL (4.2-5.4); RED CELL DISTRIBUTION WIDTH 15.3 % (11.6-14.6)
[2020-02-21 07:21] LABS: CHLORIDE 102 mEq/L (98-107)
[2020-02-21] MEDS: INSULIN LISPRO 100 UNITS/ML SUBCUT SCH ×4 (07:50→21:00)
[2020-02-21 08:00] VITALS: BP 135/64
[2020-02-21] MEDS: AMLODIPINE 10MG TABLET PO SCH (08:36)
[2020-02-21] MEDS: METFORMIN HCL 500MG TABLET PO SCH ×2 (08:36→17:17)
[2020-02-21] MEDS: FAMOTIDINE 20MG/2ML VIAL IV SCH ×2 (08:37→21:40)
[2020-02-21] MEDS: LISINOPRIL 10MG TABLET PO SCH (08:37)
[2020-02-21] MEDS: MORPHINE SULFATE 4 MG/ML CPJ (NOT FOR IM USE) IV PRN ×3 (08:38→21:45)
[2020-02-21] MEDS: INSULIN GLARGINE UD 100 UNITS/ML SYR SUBCUT SCH ×2 (11:05→22:11)
[2020-02-21 12:00] VITALS: BP 138/67
[2020-02-21 16:00] VITALS: BP 137/71
[2020-02-21] MEDS: MONTELUKAST SODIUM 10MG TABLET PO SCH (17:18)
[2020-02-21 19:00] VITALS: BP 145/75
[2020-02-21] MEDS: ATORVASTATIN CALCIUM 20MG TABLET PO SCH (21:40)
[2020-02-21] MEDS: LATANOPROST 0.005% OPHTH DROPS 2.5ML BOTHEYE SCH (21:41)
[2020-02-22] VITALS (8 sets, daily range): BP systolic 130–155; BP diastolic 65–84
[2020-02-22] MEDS: DEXT 5%/LACTATED RINGERS 1,000 ML IV SCH ×2 (03:18→08:43)
[2020-02-22] MEDS: HYDROCODONE/ACETAMINOPHEN 10/325MG TABLET PO PRN ×3 (03:18→19:04)
[2020-02-22] MEDS: CLONIDINE 0.1MG TABLET PO SCH ×3 (05:16→22:04)
[2020-02-22] MEDS: BLOOD SUGAR DIAGNOSTIC STRIP TEST SCH ×4 (07:07→21:00)
[2020-02-22] MEDS: INSULIN LISPRO 100 UNITS/ML SUBCUT SCH ×4 (07:07→21:00)
[2020-02-22] MEDS: AMLODIPINE 10MG TABLET PO SCH (08:41)
[2020-02-22] MEDS: METFORMIN HCL 500MG TABLET PO SCH ×2 (08:41→16:41)
[2020-02-22] MEDS: LISINOPRIL 10MG TABLET PO SCH (08:41)
[2020-02-22] MEDS: FAMOTIDINE 20MG/2ML VIAL IV SCH ×2 (08:41→22:03)
[2020-02-22] MEDS: HYDROCODONE/ACETAMINOPHEN 5/325MG TABLET PO PRN ×2 (08:42→16:42)
[2020-02-22] MEDS: INSULIN GLARGINE UD 100 UNITS/ML SYR SUBCUT SCH (10:51)
[2020-02-22] MEDS: MONTELUKAST SODIUM 10MG TABLET PO SCH (16:41)
[2020-02-22] MEDS: LATANOPROST 0.005% OPHTH DROPS 2.5ML BOTHEYE SCH (21:00)
[2020-02-22] MEDS: ATORVASTATIN CALCIUM 20MG TABLET PO SCH (22:03)
== END 2020-02-22 22:30 | DRG 321 ==
LOC: ER 10:02 → 8WST 13:14 → EDBEDREQTM 13:21 → EDBEDREQ 13:21 → ENRESERV 14:45 → MICUSO 02-17 10:10 → 6EST 02-20 16:35
PROVIDERS: ADMIT Internal Medicine; ATTEND Internal Medicine
PROC: 0RG20J1 Fusion of 2 or more Cervical Vertebral Joints with Synthetic Substitute, Posterior Approach, Posterior Column, Open Approach (ICD-10-PCS; principal; 2020-02-17)
PROC: 4A11X4Z Monitoring of Peripheral Nervous Electrical Activity, External Approach (ICD-10-PCS; 2020-02-17)
PROC: 00NW0ZZ Release Cervical Spinal Cord, Open Approach (ICD-10-PCS; 2020-02-17)
DX: M48.02 Spinal stenosis, cervical region (principal); E87.8 Other disorders of electrolyte and fluid balance, not elsewhere classified; E11.9 Type 2 diabetes mellitus without complications; I10 Essential (primary) hypertension; E78.5 Hyperlipidemia, unspecified; M47.22 Other spondylosis with radiculopathy, cervical region; M47.12 Other spondylosis with myelopathy, cervical region; I25.10 Atherosclerotic heart disease of native coronary artery without angina pectoris; K21.9 Gastro-esophageal reflux disease without esophagitis; M10.9 Gout, unspecified; F41.9 Anxiety disorder, unspecified; G82.50 Quadriplegia, unspecified; G95.20 Unspecified cord compression; E78.00 Pure hypercholesterolemia, unspecified; J44.9 Chronic obstructive pulmonary disease, unspecified; G35 Multiple sclerosis; Z20.828 Contact with and (suspected) exposure to other viral communicable diseases; Z82.49 Family history of ischemic heart disease and other diseases of the circulatory system; Z79.82 Long term (current) use of aspirin; Z79.84 Long term (current) use of oral hypoglycemic drugs; Z79.899 Other long term (current) drug therapy; Z86.73 Personal history of transient ischemic attack (TIA), and cerebral infarction without residual deficits; Z90.49 Acquired absence of other specified parts of digestive tract; Z90.710 Acquired absence of both cervix and uterus; I25.2 Old myocardial infarction; Z78.1 Physical restraint status; Z82.3 Family history of stroke; H40.9 Unspecified glaucoma
CPT/HCPCS: 36415; 71045; 72040; 72141; 76000; 80048; 80053; 80305; 81003; 82962; 83036; 83735; 83880; 84100; 84145; 84443; 84484; 84550; 85025; 85384; 86850; 86900; 87426; 88304; 88311; 92610; 93005; 93306; 95925; 95926; 95928; 95929; 97116; 97162; 97164; 97166; 97530; 97535; 99285; C1713; J0690; J1100; J1170; J1815; J2060; J2270; J2405; J2704; J2710; J3490; J7040; J7050; J7121; L0172

== ENCOUNTER 2020-02-22 22:30 | Inpatient (IN) | payer MEDICARE, MEDICAID ==
[~2020-02-22] VITALS: Ht 162.6 cm; Wt 73.0 kg
[2020-02-22 20:00] VITALS: BP 163/80
[2020-02-22 22:30] VITALS: BP 163/80
[2020-02-23] MEDS ORDERED: DEXTROSE 50% WATER 50ML SYRINGE IV PRN
[2020-02-23] MEDS ORDERED: ONDANSETRON HCL 4MG/2ML INJ IV PRN
[2020-02-23] MEDS ORDERED: HYDROCODONE/ACETAMINOPHEN 5/325MG TABLET PO PRN
[2020-02-23] MEDS ORDERED: IPRATROPIUM/ALBUTEROL 0.5-3(2.5)MG/3ML NEB HHN PRN
[2020-02-23] MEDS: DEXT 5%/LACTATED RINGERS 1,000 ML IV SCH ×2 (00:55→12:10)
[2020-02-23] MEDS: ACETAMINOPHEN 325MG TABLET PO PRN (03:23)
[2020-02-23] MEDS: CLONIDINE 0.1MG TABLET PO SCH ×3 (05:26→22:01)
[2020-02-23] MEDS: HYDROCODONE/ACETAMINOPHEN 10/325MG TABLET PO PRN ×2 (05:27→12:12)
[2020-02-23] MEDS: BLOOD SUGAR DIAGNOSTIC STRIP TEST SCH ×4 (05:36→21:00)
[2020-02-23 08:30] VITALS: BP 141/69
[2020-02-23] MEDS: INSULIN LISPRO 100 UNITS/ML SUBCUT SCH ×4 (09:00→22:33)
[2020-02-23] MEDS: FAMOTIDINE 20MG/2ML VIAL IV SCH ×2 (09:08→22:51)
[2020-02-23] MEDS: LISINOPRIL 10MG TABLET PO SCH (09:09)
[2020-02-23] MEDS: AMLODIPINE 10MG TABLET PO SCH (09:09)
[2020-02-23] MEDS: METFORMIN HCL 500MG TABLET PO SCH ×2 (09:09→17:37)
[2020-02-23] MEDS ORDERED: INSULIN GLARGINE UD 100 UNITS/ML SYR SUBCUT SCH (10:00)
[2020-02-23] MEDS: LACTULOSE 20G/30ML UDC PO SCH ×4 (12:13→22:49)
[2020-02-23] MEDS: DOCUSATE SODIUM 100MG CAPSULE PO SCH (17:37)
[2020-02-23] MEDS: MONTELUKAST SODIUM 10MG TABLET PO SCH (17:37)
[2020-02-23 17:41] LABS: VITAMIN B12 SERUM 893 pg/mL (211-911)
[2020-02-23 20:00] VITALS: BP 159/72
[2020-02-23] MEDS: ATORVASTATIN CALCIUM 20MG TABLET PO SCH (22:01)
[2020-02-23] MEDS: TRAMADOL 50MG TABLET PO PRN (22:02)
[2020-02-23] MEDS: LATANOPROST 0.005% OPHTH DROPS 2.5ML BOTHEYE SCH (22:02)
[2020-02-24] MEDS: LACTULOSE 20G/30ML UDC PO SCH ×2 (02:30→06:30)
[2020-02-24 06:09] VITALS: BP 165/71
[2020-02-24] MEDS: CLONIDINE 0.1MG TABLET PO SCH ×3 (06:27→21:43)
[2020-02-24] MEDS: TRAMADOL 50MG TABLET PO PRN ×2 (06:28→12:56)
[2020-02-24] MEDS: BLOOD SUGAR DIAGNOSTIC STRIP TEST SCH ×4 (06:28→21:43)
[2020-02-24 08:30] VITALS: BP 151/74
[2020-02-24] MEDS: DOCUSATE SODIUM 100MG CAPSULE PO SCH ×2 (08:31→16:35)
[2020-02-24] MEDS: METFORMIN HCL 500MG TABLET PO SCH ×2 (08:31→16:35)
[2020-02-24] MEDS: ACETAMINOPHEN 325MG TABLET PO SCH ×2 (08:31→12:59)
[2020-02-24] MEDS: LISINOPRIL 10MG TABLET PO SCH (08:32)
[2020-02-24] MEDS: AMLODIPINE 10MG TABLET PO SCH (08:32)
[2020-02-24] MEDS: INSULIN LISPRO 100 UNITS/ML SUBCUT SCH ×4 (08:32→21:00)
[2020-02-24 08:41] LABS: HEMATOCRIT 37.9 % (36.0-48.0); HEMOGLOBIN 12.4 g/dL (12.0-16.0); MEAN CORPUSCULAR HEMOGLOBIN 28.2 pg (28.0-32.0); MEAN CORPUSCULAR VOLUME 85.9 fL (81.0-99.0); PLATELET 227 x1000/uL (130-400); RED BLOOD CELL COUNT 4.41 mill/uL (4.2-5.4)
[2020-02-24] MEDS: FAMOTIDINE 20MG/2ML VIAL IV SCH ×2 (09:00→22:26)
[2020-02-24 12:16] LABS: CLARITY URINE CLEAR (CLEAR); COLOR URINE DK YELLOW (YELLOW); KETONES URINE 1+ (NEGATIVE); LEUKOCYTE ESTERASE URINE 1+ (NEGATIVE); NITRITE URINE NEGATIVE (NEGATIVE); OCCULT BLOOD URINE NEGATIVE (NEGATIVE); PH URINE 6.5 (4.5-8.0); PROTEIN URINE 1+ (NEGATIVE); SPECIFIC GRAVITY URINE 1.022 (1.005-1.030)
[2020-02-24] MEDS ORDERED: ACETAMINOPHEN 325MG TABLET PO PRN (14:45)
[2020-02-24] MEDS ORDERED: PIPERACILLIN/TAZOBACTAM 3.375 G in DEXT 5% WATER 100 ML IV SCH (16:00)
[2020-02-24] MEDS: MONTELUKAST SODIUM 10MG TABLET PO SCH (16:36)
[2020-02-24] MEDS: BISACODYL 10MG SUPP PR PRN (16:36)
[2020-02-24 20:00] VITALS: BP 154/74
[2020-02-24] MEDS: ATORVASTATIN CALCIUM 20MG TABLET PO SCH (21:42)
[2020-02-24] MEDS: LATANOPROST 0.005% OPHTH DROPS 2.5ML BOTHEYE SCH (21:43)
[2020-02-24] MEDS: PIPERACILLIN/TAZOBACTAM 3.375 G in DEXT 5% WATER 100 ML IV SCH (22:20)
[2020-02-25] MEDS: ACETAMINOPHEN 325MG TABLET PO PRN ×2 (00:07→08:27)
[2020-02-25] MEDS: PIPERACILLIN/TAZOBACTAM 3.375 G in DEXT 5% WATER 100 ML IV SCH ×4 (03:20→22:36)
[2020-02-25] MEDS: TRAMADOL 50MG TABLET PO PRN ×3 (03:51→20:06)
[2020-02-25] MEDS: INSULIN LISPRO 100 UNITS/ML SUBCUT SCH ×4 (05:53→20:22)
[2020-02-25] MEDS: BLOOD SUGAR DIAGNOSTIC STRIP TEST SCH ×4 (05:53→20:22)
[2020-02-25] MEDS: CLONIDINE 0.1MG TABLET PO SCH ×3 (05:53→22:36)
[2020-02-25 06:22] LABS: CHLORIDE 97 mEq/L (98-107)
[2020-02-25 06:39] LABS: BASOPHILS % 0.3 % (0.0-2.0); EOSINOPHILS % 0.3 % (0.0-5.0); HEMATOCRIT. 33.1 % (36.0-48.0); LYMPHOCYTES % 22.1 % (20.0-50.0); MEAN CORPUSCULAR HEMOGLOBIN 28.5 pg (28.0-32.0); MEAN CORPUSCULAR VOLUME 85.8 fL (81.0-99.0); MEAN PLATELET VOLUME 8.4 fl (7.4-10.4); MONOCYTES % 8.3 % (2.0-8.0); PLATELET 250 x1000/uL (130-400); RED BLOOD CELL COUNT 3.86 mill/uL (4.2-5.4); RED CELL DISTRIBUTION WIDTH 14.7 % (11.6-14.6)
[2020-02-25] MEDS ORDERED: POTASSIUM CHLORIDE 20MEQ TABLET SR PO SCH (06:50)
[2020-02-25 08:00] VITALS: BP 136/68
[2020-02-25] MEDS: LISINOPRIL 10MG TABLET PO SCH (08:27)
[2020-02-25] MEDS: METFORMIN HCL 500MG TABLET PO SCH ×2 (08:27→16:28)
[2020-02-25] MEDS: AMLODIPINE 10MG TABLET PO SCH (08:28)
[2020-02-25] MEDS: DOCUSATE SODIUM 100MG CAPSULE PO SCH ×2 (08:28→16:28)
[2020-02-25] MEDS: FAMOTIDINE 20MG/2ML VIAL IV SCH ×2 (10:10→22:35)
[2020-02-25] MEDS: MONTELUKAST SODIUM 10MG TABLET PO SCH (16:28)
[2020-02-25 20:00] VITALS: BP 136/68
[2020-02-25] MEDS: ATORVASTATIN CALCIUM 20MG TABLET PO SCH (20:19)
[2020-02-25] MEDS: LATANOPROST 0.005% OPHTH DROPS 2.5ML BOTHEYE SCH (20:20)
[2020-02-26] MEDS: TRAMADOL 50MG TABLET PO PRN ×2 (02:46→14:27)
[2020-02-26] MEDS: PIPERACILLIN/TAZOBACTAM 3.375 G in DEXT 5% WATER 100 ML IV SCH ×4 (04:00→21:53)
[2020-02-26] MEDS: BLOOD SUGAR DIAGNOSTIC STRIP TEST SCH ×4 (05:57→21:00)
[2020-02-26] MEDS: CLONIDINE 0.1MG TABLET PO SCH ×3 (05:57→21:54)
[2020-02-26 06:38] LABS: BASOPHILS % 0.4 % (0.0-2.0); EOSINOPHILS % 0.5 % (0.0-5.0); HEMATOCRIT. 30.8 % (36.0-48.0); HEMOGLOBIN. 10.2 g/dL (12.0-16.0); LYMPHOCYTES % 24.9 % (20.0-50.0); MEAN CORPUSCULAR HEMOGLOBIN 28.4 pg (28.0-32.0); MEAN CORPUSCULAR VOLUME 85.6 fL (81.0-99.0); MEAN PLATELET VOLUME 8.9 fl (7.4-10.4); MONOCYTES % 8.1 % (2.0-8.0); NEUTROPHILS % 66.1 % (40.0-76.0); PLATELET 253 x1000/uL (130-400)
[2020-02-26] MEDS: INSULIN LISPRO 100 UNITS/ML SUBCUT SCH ×4 (08:21→22:10)
[2020-02-26 08:30] VITALS: BP 126/64
[2020-02-26] MEDS: ACETAMINOPHEN 325MG TABLET PO PRN (08:36)
[2020-02-26] MEDS: DOCUSATE SODIUM 100MG CAPSULE PO SCH ×2 (08:37→17:15)
[2020-02-26] MEDS: AMLODIPINE 10MG TABLET PO SCH (08:37)
[2020-02-26] MEDS: METFORMIN HCL 500MG TABLET PO SCH ×2 (08:37→17:15)
[2020-02-26] MEDS: LISINOPRIL 10MG TABLET PO SCH (08:38)
[2020-02-26] MEDS: MONTELUKAST SODIUM 10MG TABLET PO SCH (17:15)
[2020-02-26 20:00] VITALS: BP 131/58
[2020-02-26] MEDS: LATANOPROST 0.005% OPHTH DROPS 2.5ML BOTHEYE SCH (21:53)
[2020-02-26] MEDS: GABAPENTIN 300MG CAPSULE PO SCH (21:53)
[2020-02-26] MEDS: ATORVASTATIN CALCIUM 20MG TABLET PO SCH (21:54)
[2020-02-26] MEDS: FAMOTIDINE 20MG TABLET PO SCH (22:06)
[2020-02-27] MEDS: TRAMADOL 50MG TABLET PO PRN ×3 (02:53→22:13)
[2020-02-27] MEDS: PIPERACILLIN/TAZOBACTAM 3.375 G in DEXT 5% WATER 100 ML IV SCH ×4 (04:20→21:49)
[2020-02-27] MEDS: CLONIDINE 0.1MG TABLET PO SCH ×3 (05:56→21:14)
[2020-02-27] MEDS: BISACODYL 10MG SUPP PR PRN (05:56)
[2020-02-27] MEDS: INSULIN LISPRO 100 UNITS/ML SUBCUT SCH ×4 (06:04→21:00)
[2020-02-27] MEDS: BLOOD SUGAR DIAGNOSTIC STRIP TEST SCH ×4 (06:04→21:13)
[2020-02-27 06:40] LABS: BASOPHILS % 0.2 % (0.0-2.0); EOSINOPHILS % 0.5 % (0.0-5.0); HEMATOCRIT. 30.1 % (36.0-48.0); HEMOGLOBIN. 10.1 g/dL (12.0-16.0); LYMPHOCYTES % 22.2 % (20.0-50.0); MEAN CORPUSCULAR HEMOGLOBIN 28.6 pg (28.0-32.0); MEAN CORPUSCULAR VOLUME 84.9 fL (81.0-99.0); MEAN PLATELET VOLUME 7.7 fl (7.4-10.4); MONOCYTES % 6.7 % (2.0-8.0); NEUTROPHILS % 70.4 % (40.0-76.0); PLATELET 317 x1000/uL (130-400); RED BLOOD CELL COUNT 3.55 mill/uL (4.2-5.4); RED CELL DISTRIBUTION WIDTH 14.8 % (11.6-14.6)
[2020-02-27 06:45] LABS: CHLORIDE 101 mEq/L (98-107)
[2020-02-27 07:10] VITALS: BP 135/60
[2020-02-27] MEDS: ACETAMINOPHEN 325MG TABLET PO PRN (08:30)
[2020-02-27] MEDS: METFORMIN HCL 500MG TABLET PO SCH ×2 (08:30→16:53)
[2020-02-27] MEDS: AMLODIPINE 10MG TABLET PO SCH (08:33)
[2020-02-27] MEDS: LISINOPRIL 10MG TABLET PO SCH (08:33)
[2020-02-27] MEDS: GABAPENTIN 300MG CAPSULE PO SCH ×3 (08:33→16:53)
[2020-02-27] MEDS: DOCUSATE SODIUM 100MG CAPSULE PO SCH ×2 (08:33→16:53)
[2020-02-27] MEDS: FAMOTIDINE 20MG TABLET PO SCH ×2 (08:33→16:53)
[2020-02-27] MEDS ORDERED: POTASSIUM CHLORIDE 20MEQ TABLET SR PO SCH (14:00)
[2020-02-27] MEDS: MONTELUKAST SODIUM 10MG TABLET PO SCH (16:53)
[2020-02-27 20:00] VITALS: BP 137/66
[2020-02-27] MEDS: ATORVASTATIN CALCIUM 20MG TABLET PO SCH (21:13)
[2020-02-27] MEDS: LATANOPROST 0.005% OPHTH DROPS 2.5ML BOTHEYE SCH (21:49)
[2020-02-28] MEDS: PIPERACILLIN/TAZOBACTAM 3.375 G in DEXT 5% WATER 100 ML IV SCH ×4 (04:19→21:20)
[2020-02-28] MEDS: TRAMADOL 50MG TABLET PO PRN ×3 (05:34→20:49)
[2020-02-28] MEDS: CLONIDINE 0.1MG TABLET PO SCH ×3 (06:03→22:41)
[2020-02-28] MEDS: BLOOD SUGAR DIAGNOSTIC STRIP TEST SCH ×4 (06:03→21:21)
[2020-02-28 07:57] VITALS: BP 156/66
[2020-02-28] MEDS: INSULIN LISPRO 100 UNITS/ML SUBCUT SCH ×4 (09:00→21:00)
[2020-02-28] MEDS: GABAPENTIN 300MG CAPSULE PO SCH ×3 (09:36→17:53)
[2020-02-28] MEDS: DOCUSATE SODIUM 100MG CAPSULE PO SCH ×2 (09:36→17:53)
[2020-02-28] MEDS: METFORMIN HCL 500MG TABLET PO SCH ×2 (09:36→17:53)
[2020-02-28] MEDS: FAMOTIDINE 20MG TABLET PO SCH ×2 (09:36→17:53)
[2020-02-28] MEDS: LISINOPRIL 10MG TABLET PO SCH (09:37)
[2020-02-28] MEDS: AMLODIPINE 10MG TABLET PO SCH (09:37)
[2020-02-28] MEDS ORDERED: POTASSIUM CHLORIDE 20MEQ TABLET SR PO NR (16:00)
[2020-02-28] MEDS: MONTELUKAST SODIUM 10MG TABLET PO SCH (17:53)
[2020-02-28 20:00] VITALS: BP 125/67
[2020-02-28] MEDS: ATORVASTATIN CALCIUM 20MG TABLET PO SCH (21:20)
[2020-02-28] MEDS: LATANOPROST 0.005% OPHTH DROPS 2.5ML BOTHEYE SCH (21:20)
[2020-02-29] MEDS: PIPERACILLIN/TAZOBACTAM 3.375 G in DEXT 5% WATER 100 ML IV SCH ×4 (04:15→21:13)
[2020-02-29] MEDS: CLONIDINE 0.1MG TABLET PO SCH ×3 (05:15→21:14)
[2020-02-29] MEDS: ACETAMINOPHEN 325MG TABLET PO PRN ×2 (05:16→11:19)
[2020-02-29 06:19] LABS: BASOPHILS % 0.6 % (0.0-2.0); EOSINOPHILS % 0.3 % (0.0-5.0); HEMATOCRIT. 29.8 % (36.0-48.0); HEMOGLOBIN. 9.9 g/dL (12.0-16.0); LYMPHOCYTES % 19.5 % (20.0-50.0); MEAN CORPUSCULAR HEMOGLOBIN 28.4 pg (28.0-32.0); MEAN CORPUSCULAR VOLUME 85.9 fL (81.0-99.0); MEAN PLATELET VOLUME 7.3 fl (7.4-10.4); MONOCYTES % 5.5 % (2.0-8.0); NEUTROPHILS % 74.1 % (40.0-76.0); PLATELET 357 x1000/uL (130-400); RED BLOOD CELL COUNT 3.47 mill/uL (4.2-5.4); RED CELL DISTRIBUTION WIDTH 15.1 % (11.6-14.6)
[2020-02-29] MEDS: INSULIN LISPRO 100 UNITS/ML SUBCUT SCH ×4 (06:44→20:08)
[2020-02-29] MEDS: BLOOD SUGAR DIAGNOSTIC STRIP TEST SCH ×4 (06:44→20:08)
[2020-02-29] MEDS: TRAMADOL 50MG TABLET PO PRN ×3 (06:45→20:09)
[2020-02-29 07:54] VITALS: BP 149/62
[2020-02-29] MEDS: FAMOTIDINE 20MG TABLET PO SCH ×2 (08:39→16:43)
[2020-02-29] MEDS: AMLODIPINE 10MG TABLET PO SCH (08:39)
[2020-02-29] MEDS: DOCUSATE SODIUM 100MG CAPSULE PO SCH ×2 (08:39→16:43)
[2020-02-29] MEDS: GABAPENTIN 300MG CAPSULE PO SCH ×3 (08:39→16:43)
[2020-02-29] MEDS: METFORMIN HCL 500MG TABLET PO SCH ×2 (08:39→16:42)
[2020-02-29] MEDS: LISINOPRIL 10MG TABLET PO SCH (08:40)
[2020-02-29] MEDS: VENLAFAXINE HCL 37.5MG TABLET PO SCH (16:42)
[2020-02-29] MEDS: MONTELUKAST SODIUM 10MG TABLET PO SCH (16:43)
[2020-02-29 20:00] VITALS: BP 147/67
[2020-02-29] MEDS: ATORVASTATIN CALCIUM 20MG TABLET PO SCH (20:08)
[2020-02-29] MEDS: LATANOPROST 0.005% OPHTH DROPS 2.5ML BOTHEYE SCH (20:08)
[2020-03-01] VITALS (7 sets, daily range): BP systolic 110–162; BP diastolic 62–75
[2020-03-01] MEDS: TRAMADOL 50MG TABLET PO PRN ×3 (03:27→18:51)
[2020-03-01] MEDS: CLONIDINE 0.1MG TABLET PO SCH ×3 (04:29→21:07)
[2020-03-01] MEDS: PIPERACILLIN/TAZOBACTAM 3.375 G in DEXT 5% WATER 100 ML IV SCH ×4 (04:30→21:07)
[2020-03-01] MEDS: BLOOD SUGAR DIAGNOSTIC STRIP TEST SCH ×4 (05:51→20:42)
[2020-03-01] MEDS: BISACODYL 5MG TABLET PO PRN (05:52)
[2020-03-01] MEDS: INSULIN LISPRO 100 UNITS/ML SUBCUT SCH ×4 (05:52→20:43)
[2020-03-01] MEDS: ACETAMINOPHEN 325MG TABLET PO PRN ×2 (06:41→12:58)
[2020-03-01] MEDS: DOCUSATE SODIUM 100MG CAPSULE PO SCH ×2 (09:26→17:31)
[2020-03-01] MEDS: FAMOTIDINE 20MG TABLET PO SCH ×2 (09:26→17:31)
[2020-03-01] MEDS: GABAPENTIN 300MG CAPSULE PO SCH ×3 (09:26→17:31)
[2020-03-01] MEDS: AMLODIPINE 10MG TABLET PO SCH (09:27)
[2020-03-01] MEDS: VENLAFAXINE HCL 37.5MG TABLET PO SCH (09:27)
[2020-03-01] MEDS: METFORMIN HCL 500MG TABLET PO SCH ×2 (09:35→17:31)
[2020-03-01] MEDS: LISINOPRIL 10MG TABLET PO SCH (10:21)
[2020-03-01] MEDS: MONTELUKAST SODIUM 10MG TABLET PO SCH (17:31)
[2020-03-01] MEDS: ATORVASTATIN CALCIUM 20MG TABLET PO SCH (20:42)
[2020-03-01] MEDS: BISACODYL 10MG SUPP PR PRN (20:42)
[2020-03-01] MEDS: LATANOPROST 0.005% OPHTH DROPS 2.5ML BOTHEYE SCH (22:58)
[2020-03-02] MEDS: TRAMADOL 50MG TABLET PO PRN ×3 (02:24→16:24)
[2020-03-02] MEDS: PIPERACILLIN/TAZOBACTAM 3.375 G in DEXT 5% WATER 100 ML IV SCH ×3 (03:22→16:18)
[2020-03-02 04:03] VITALS: BP 159/73
[2020-03-02] MEDS: BLOOD SUGAR DIAGNOSTIC STRIP TEST SCH ×4 (05:40→20:48)
[2020-03-02] MEDS: CLONIDINE 0.1MG TABLET PO SCH ×3 (05:40→21:14)
[2020-03-02] MEDS: INSULIN LISPRO 100 UNITS/ML SUBCUT SCH ×4 (05:40→20:48)
[2020-03-02] MEDS: ACETAMINOPHEN 325MG TABLET PO PRN ×2 (06:19→12:25)
[2020-03-02 06:54] VITALS: BP 146/72
[2020-03-02] MEDS: BISACODYL 5MG TABLET PO PRN (10:12)
[2020-03-02] MEDS: METFORMIN HCL 500MG TABLET PO SCH ×2 (10:13→17:55)
[2020-03-02] MEDS: VENLAFAXINE HCL 37.5MG TABLET PO SCH (10:13)
[2020-03-02] MEDS: FAMOTIDINE 20MG TABLET PO SCH (10:13)
[2020-03-02] MEDS: GABAPENTIN 300MG CAPSULE PO SCH ×3 (10:13→17:55)
[2020-03-02] MEDS: AMLODIPINE 10MG TABLET PO SCH (10:16)
[2020-03-02] MEDS: DOCUSATE SODIUM 100MG CAPSULE PO SCH ×2 (10:16→17:55)
[2020-03-02] MEDS: LISINOPRIL 10MG TABLET PO SCH (11:26)
[2020-03-02] MEDS ORDERED: CLONIDINE 0.1MG TABLET PO PRN (16:00)
[2020-03-02] MEDS: MONTELUKAST SODIUM 10MG TABLET PO SCH (17:55)
[2020-03-02 20:00] VITALS: BP 145/73
[2020-03-02] MEDS: LATANOPROST 0.005% OPHTH DROPS 2.5ML BOTHEYE SCH (20:47)
[2020-03-02] MEDS: OMEPRAZOLE 20MG CAPSULE EXTENDED RELEASE PO SCH (20:48)
[2020-03-02] MEDS: ATORVASTATIN CALCIUM 20MG TABLET PO SCH (20:48)
[2020-03-02] MEDS: CARVEDILOL 12.5MG TABLET PO SCH (20:48)
[2020-03-03] MEDS: TRAMADOL 50MG TABLET PO PRN ×3 (00:27→16:51)
[2020-03-03] MEDS: CLONIDINE 0.1MG TABLET PO SCH ×3 (05:26→21:43)
[2020-03-03] MEDS: BLOOD SUGAR DIAGNOSTIC STRIP TEST SCH ×4 (05:30→21:44)
[2020-03-03] MEDS: INSULIN LISPRO 100 UNITS/ML SUBCUT SCH ×4 (05:30→21:00)
[2020-03-03 06:08] VITALS: BP 154/73
[2020-03-03 08:00] VITALS: BP 156/75
[2020-03-03] MEDS: HYDROCHLOROTHIAZIDE 25MG TABLET PO SCH (09:47)
[2020-03-03] MEDS: DOCUSATE SODIUM 100MG CAPSULE PO SCH ×2 (09:47→16:51)
[2020-03-03] MEDS: POTASSIUM CHLORIDE 20MEQ TABLET SR PO SCH (09:47)
[2020-03-03] MEDS: METFORMIN HCL 500MG TABLET PO SCH ×2 (09:47→16:51)
[2020-03-03] MEDS: GABAPENTIN 300MG CAPSULE PO SCH ×3 (09:47→16:51)
[2020-03-03] MEDS: OMEPRAZOLE 20MG CAPSULE EXTENDED RELEASE PO SCH ×2 (09:48→21:42)
[2020-03-03] MEDS: CARVEDILOL 12.5MG TABLET PO SCH ×2 (09:48→21:46)
[2020-03-03] MEDS: VENLAFAXINE HCL 37.5MG TABLET PO SCH (09:48)
[2020-03-03] MEDS: AMLODIPINE 10MG TABLET PO SCH (09:48)
[2020-03-03] MEDS: LISINOPRIL 10MG TABLET PO SCH (09:48)
[2020-03-03] MEDS: ACETAMINOPHEN 325MG TABLET PO PRN ×2 (14:45→21:52)
[2020-03-03] MEDS: MONTELUKAST SODIUM 10MG TABLET PO SCH (16:51)
[2020-03-03 20:00] VITALS: BP 126/75
[2020-03-03] MEDS: ATORVASTATIN CALCIUM 20MG TABLET PO SCH (21:43)
[2020-03-03] MEDS: LATANOPROST 0.005% OPHTH DROPS 2.5ML BOTHEYE SCH (21:46)
[2020-03-03 23:45] VITALS: BP 126/67
[2020-03-04] MEDS: ACETAMINOPHEN 325MG TABLET PO PRN (03:40)
[2020-03-04] MEDS: BLOOD SUGAR DIAGNOSTIC STRIP TEST SCH ×4 (06:41→21:50)
[2020-03-04] MEDS: CLONIDINE 0.1MG TABLET PO SCH ×3 (06:43→21:49)
[2020-03-04] MEDS: INSULIN LISPRO 100 UNITS/ML SUBCUT SCH ×4 (06:43→21:00)
[2020-03-04 07:01] LABS: BASOPHILS % 0.4 % (0.0-2.0); EOSINOPHILS % 0.4 % (0.0-5.0); HEMATOCRIT. 32.9 % (36.0-48.0); LYMPHOCYTES % 26.5 % (20.0-50.0); MEAN CORPUSCULAR HEMOGLOBIN 28.8 pg (28.0-32.0); MEAN CORPUSCULAR VOLUME 86.5 fL (81.0-99.0); MEAN PLATELET VOLUME 6.9 fl (7.4-10.4); MONOCYTES % 6.2 % (2.0-8.0); NEUTROPHILS % 66.5 % (40.0-76.0); PLATELET 382 x1000/uL (130-400); RED BLOOD CELL COUNT 3.81 mill/uL (4.2-5.4); RED CELL DISTRIBUTION WIDTH 15.1 % (11.6-14.6)
[2020-03-04] MEDS: DOCUSATE SODIUM 100MG CAPSULE PO SCH ×2 (08:54→17:33)
[2020-03-04] MEDS: OMEPRAZOLE 20MG CAPSULE EXTENDED RELEASE PO SCH ×2 (08:54→21:48)
[2020-03-04] MEDS: POTASSIUM CHLORIDE 20MEQ TABLET SR PO SCH (08:54)
[2020-03-04] MEDS: GABAPENTIN 300MG CAPSULE PO SCH ×3 (08:54→17:33)
[2020-03-04] MEDS: VENLAFAXINE HCL 37.5MG TABLET PO SCH (08:55)
[2020-03-04] MEDS: HYDROCHLOROTHIAZIDE 25MG TABLET PO SCH (08:55)
[2020-03-04] MEDS: CARVEDILOL 12.5MG TABLET PO SCH ×2 (08:55→21:48)
[2020-03-04] MEDS: METFORMIN HCL 500MG TABLET PO SCH ×2 (08:55→17:33)
[2020-03-04] MEDS: LISINOPRIL 10MG TABLET PO SCH (08:56)
[2020-03-04] MEDS: AMLODIPINE 10MG TABLET PO SCH (08:56)
[2020-03-04] MEDS: TRAMADOL 50MG TABLET PO PRN ×2 (13:18→22:22)
[2020-03-04] MEDS: MONTELUKAST SODIUM 10MG TABLET PO SCH (17:33)
[2020-03-04 20:00] VITALS: BP 130/72
[2020-03-04] MEDS: ATORVASTATIN CALCIUM 20MG TABLET PO SCH (21:47)
[2020-03-04] MEDS: LATANOPROST 0.005% OPHTH DROPS 2.5ML BOTHEYE SCH (21:49)
[2020-03-05] MEDS: TRAMADOL 50MG TABLET PO PRN ×2 (04:44→10:27)
[2020-03-05] MEDS: BLOOD SUGAR DIAGNOSTIC STRIP TEST SCH ×4 (05:51→21:46)
[2020-03-05] MEDS: CLONIDINE 0.1MG TABLET PO SCH ×3 (05:51→21:46)
[2020-03-05 06:10] LABS: HEMATOCRIT 32.3 % (36.0-48.0); HEMOGLOBIN 10.6 g/dL (12.0-16.0); MEAN CORPUSCULAR HEMOGLOBIN 28.3 pg (28.0-32.0); PLATELET 370 x1000/uL (130-400); RED BLOOD CELL COUNT 3.75 mill/uL (4.2-5.4); RED CELL DISTRIBUTION WIDTH 15.5 % (11.6-14.6)
[2020-03-05] MEDS: INSULIN LISPRO 100 UNITS/ML SUBCUT SCH ×4 (06:25→21:00)
[2020-03-05 06:27] LABS: CHLORIDE 102 mEq/L (98-107)
[2020-03-05 08:00] VITALS: BP 126/65
[2020-03-05] MEDS: OMEPRAZOLE 20MG CAPSULE EXTENDED RELEASE PO SCH ×2 (08:40→21:45)
[2020-03-05] MEDS: LISINOPRIL 10MG TABLET PO SCH (08:40)
[2020-03-05] MEDS: METFORMIN HCL 500MG TABLET PO SCH ×2 (08:40→16:28)
[2020-03-05] MEDS: POTASSIUM CHLORIDE 20MEQ TABLET SR PO SCH (08:40)
[2020-03-05] MEDS: CARVEDILOL 12.5MG TABLET PO SCH ×2 (08:41→21:45)
[2020-03-05] MEDS: AMLODIPINE 10MG TABLET PO SCH (08:41)
[2020-03-05] MEDS: HYDROCHLOROTHIAZIDE 25MG TABLET PO SCH (08:41)
[2020-03-05] MEDS: VENLAFAXINE HCL 37.5MG TABLET PO SCH (08:41)
[2020-03-05] MEDS: GABAPENTIN 300MG CAPSULE PO SCH ×3 (08:41→16:28)
[2020-03-05] MEDS: DOCUSATE SODIUM 100MG CAPSULE PO SCH ×2 (10:27→16:28)
[2020-03-05] MEDS ORDERED: MECLIZINE 25MG TABLET PO PRN (15:45)
[2020-03-05] MEDS: MONTELUKAST SODIUM 10MG TABLET PO SCH (16:28)
[2020-03-05 20:00] VITALS: BP 126/64
[2020-03-05] MEDS: LATANOPROST 0.005% OPHTH DROPS 2.5ML BOTHEYE SCH (21:45)
[2020-03-05] MEDS: ATORVASTATIN CALCIUM 20MG TABLET PO SCH (21:45)
[2020-03-06] MEDS: ACETAMINOPHEN 325MG TABLET PO PRN ×2 (04:39→21:21)
[2020-03-06] MEDS: CLONIDINE 0.1MG TABLET PO SCH ×3 (05:52→21:07)
[2020-03-06] MEDS: INSULIN LISPRO 100 UNITS/ML SUBCUT SCH ×4 (05:57→21:00)
[2020-03-06] MEDS: BLOOD SUGAR DIAGNOSTIC STRIP TEST SCH ×4 (05:57→21:08)
[2020-03-06] MEDS: TRAMADOL 50MG TABLET PO PRN ×3 (06:36→23:22)
[2020-03-06 08:00] VITALS: BP 123/68
[2020-03-06] MEDS: METFORMIN HCL 500MG TABLET PO SCH ×2 (08:30→16:43)
[2020-03-06] MEDS: LISINOPRIL 10MG TABLET PO SCH (08:30)
[2020-03-06] MEDS: CARVEDILOL 12.5MG TABLET PO SCH ×2 (08:30→21:07)
[2020-03-06] MEDS: HYDROCHLOROTHIAZIDE 25MG TABLET PO SCH (08:30)
[2020-03-06] MEDS: GABAPENTIN 300MG CAPSULE PO SCH ×3 (08:30→16:43)
[2020-03-06] MEDS: OMEPRAZOLE 20MG CAPSULE EXTENDED RELEASE PO SCH (08:30)
[2020-03-06] MEDS: DOCUSATE SODIUM 100MG CAPSULE PO SCH ×2 (08:31→16:22)
[2020-03-06] MEDS: VENLAFAXINE HCL 37.5MG TABLET PO SCH (08:31)
[2020-03-06] MEDS: AMLODIPINE 10MG TABLET PO SCH (08:31)
[2020-03-06] MEDS: POTASSIUM CHLORIDE 20MEQ TABLET SR PO SCH (08:31)
[2020-03-06 13:23] VITALS: BP 108/59
[2020-03-06] MEDS: MONTELUKAST SODIUM 10MG TABLET PO SCH (16:42)
[2020-03-06 20:00] VITALS: BP 138/68
[2020-03-06] MEDS: LATANOPROST 0.005% OPHTH DROPS 2.5ML BOTHEYE SCH (21:06)
[2020-03-06] MEDS: FAMOTIDINE 20MG TABLET PO SCH (21:07)
[2020-03-06] MEDS: ATORVASTATIN CALCIUM 20MG TABLET PO SCH (21:07)
[2020-03-07] MEDS: ACETAMINOPHEN 325MG TABLET PO PRN ×2 (03:24→11:39)
[2020-03-07] MEDS: BISACODYL 10MG SUPP PR PRN (03:29)
[2020-03-07] MEDS: BLOOD SUGAR DIAGNOSTIC STRIP TEST SCH ×4 (05:59→20:32)
[2020-03-07] MEDS: INSULIN LISPRO 100 UNITS/ML SUBCUT SCH ×4 (05:59→20:31)
[2020-03-07] MEDS: CLONIDINE 0.1MG TABLET PO SCH ×3 (05:59→21:06)
[2020-03-07 08:49] VITALS: BP 121/67
[2020-03-07] MEDS: AMLODIPINE 10MG TABLET PO SCH (09:00)
[2020-03-07] MEDS: LISINOPRIL 10MG TABLET PO SCH (09:00)
[2020-03-07] MEDS: DOCUSATE SODIUM 100MG CAPSULE PO SCH ×2 (09:00→17:40)
[2020-03-07 09:09] VITALS: BP 125/62
[2020-03-07] MEDS: METFORMIN HCL 500MG TABLET PO SCH ×2 (09:11→17:40)
[2020-03-07] MEDS: VENLAFAXINE HCL 37.5MG TABLET PO SCH (09:11)
[2020-03-07] MEDS: CARVEDILOL 12.5MG TABLET PO SCH ×2 (09:12→20:31)
[2020-03-07] MEDS: HYDROCHLOROTHIAZIDE 25MG TABLET PO SCH (09:12)
[2020-03-07] MEDS: FAMOTIDINE 20MG TABLET PO SCH ×2 (09:12→20:31)
[2020-03-07] MEDS: TRAMADOL 50MG TABLET PO PRN (09:12)
[2020-03-07] MEDS: POTASSIUM CHLORIDE 20MEQ TABLET SR PO SCH (09:12)
[2020-03-07] MEDS: GABAPENTIN 300MG CAPSULE PO SCH ×3 (09:13→17:40)
[2020-03-07 12:45] VITALS: BP 117/66
[2020-03-07] MEDS: MONTELUKAST SODIUM 10MG TABLET PO SCH (17:40)
[2020-03-07 20:00] VITALS: BP 108/56
[2020-03-07] MEDS: LATANOPROST 0.005% OPHTH DROPS 2.5ML BOTHEYE SCH (20:30)
[2020-03-07] MEDS: ATORVASTATIN CALCIUM 20MG TABLET PO SCH (20:31)
[2020-03-08] MEDS: TRAMADOL 50MG TABLET PO PRN ×3 (00:31→13:17)
[2020-03-08] MEDS: CLONIDINE 0.1MG TABLET PO SCH ×3 (05:52→21:03)
[2020-03-08] MEDS: INSULIN LISPRO 100 UNITS/ML SUBCUT SCH ×4 (06:33→21:00)
[2020-03-08] MEDS: BLOOD SUGAR DIAGNOSTIC STRIP TEST SCH ×4 (06:33→21:05)
[2020-03-08 07:46] VITALS: BP 118/62
[2020-03-08 08:00] VITALS: BP 118/62
[2020-03-08] MEDS: METFORMIN HCL 500MG TABLET PO SCH ×2 (08:35→17:23)
[2020-03-08] MEDS: LISINOPRIL 10MG TABLET PO SCH (08:35)
[2020-03-08] MEDS: GABAPENTIN 300MG CAPSULE PO SCH ×3 (08:35→17:23)
[2020-03-08] MEDS: VENLAFAXINE HCL 37.5MG TABLET PO SCH (08:35)
[2020-03-08] MEDS: FAMOTIDINE 20MG TABLET PO SCH ×2 (08:35→21:02)
[2020-03-08] MEDS: DOCUSATE SODIUM 100MG CAPSULE PO SCH ×2 (08:35→17:23)
[2020-03-08] MEDS: HYDROCHLOROTHIAZIDE 25MG TABLET PO SCH (08:35)
[2020-03-08] MEDS: POTASSIUM CHLORIDE 20MEQ TABLET SR PO SCH (08:35)
[2020-03-08] MEDS: AMLODIPINE 10MG TABLET PO SCH (08:41)
[2020-03-08] MEDS: CARVEDILOL 12.5MG TABLET PO SCH ×2 (08:41→21:03)
[2020-03-08 12:30] VITALS: BP 110/69
[2020-03-08 14:09] VITALS: BP 130/60
[2020-03-08] MEDS: MONTELUKAST SODIUM 10MG TABLET PO SCH (17:23)
[2020-03-08 20:00] VITALS: BP 137/65
[2020-03-08] MEDS: LATANOPROST 0.005% OPHTH DROPS 2.5ML BOTHEYE SCH (21:02)
[2020-03-08] MEDS: ATORVASTATIN CALCIUM 20MG TABLET PO SCH (21:02)
[2020-03-09] MEDS: TRAMADOL 50MG TABLET PO PRN ×3 (04:18→16:49)
[2020-03-09] MEDS: CLONIDINE 0.1MG TABLET PO SCH ×4 (05:29→21:09)
[2020-03-09] MEDS: BLOOD SUGAR DIAGNOSTIC STRIP TEST SCH ×4 (05:30→21:21)
[2020-03-09] MEDS: INSULIN LISPRO 100 UNITS/ML SUBCUT SCH ×4 (05:30→21:00)
[2020-03-09] MEDS: POTASSIUM CHLORIDE 20MEQ TABLET SR PO SCH (08:12)
[2020-03-09] MEDS: VENLAFAXINE HCL 37.5MG TABLET PO SCH (08:12)
[2020-03-09] MEDS: FAMOTIDINE 20MG TABLET PO SCH ×2 (08:12→21:10)
[2020-03-09] MEDS: METFORMIN HCL 500MG TABLET PO SCH ×2 (08:12→16:35)
[2020-03-09] MEDS: DOCUSATE SODIUM 100MG CAPSULE PO SCH ×2 (08:12→16:35)
[2020-03-09] MEDS: CARVEDILOL 12.5MG TABLET PO SCH ×2 (08:13→21:00)
[2020-03-09] MEDS: GABAPENTIN 300MG CAPSULE PO SCH ×3 (08:13→16:35)
[2020-03-09] MEDS: AMLODIPINE 10MG TABLET PO SCH (08:13)
[2020-03-09] MEDS: HYDROCHLOROTHIAZIDE 25MG TABLET PO SCH (08:13)
[2020-03-09] MEDS: LISINOPRIL 10MG TABLET PO SCH (08:14)
[2020-03-09 08:28] VITALS: BP 121/83
[2020-03-09] MEDS: MONTELUKAST SODIUM 10MG TABLET PO SCH (16:35)
[2020-03-09 20:00] VITALS: BP 97/53
[2020-03-09] MEDS: LATANOPROST 0.005% OPHTH DROPS 2.5ML BOTHEYE SCH (21:10)
[2020-03-09] MEDS: ATORVASTATIN CALCIUM 20MG TABLET PO SCH (21:10)
[2020-03-10] MEDS: TRAMADOL 50MG TABLET PO PRN ×3 (00:58→17:24)
[2020-03-10] MEDS: ACETAMINOPHEN 325MG TABLET PO PRN ×3 (03:58→21:15)
[2020-03-10] MEDS: CLONIDINE 0.1MG TABLET PO SCH ×3 (06:12→21:04)
[2020-03-10] MEDS: BLOOD SUGAR DIAGNOSTIC STRIP TEST SCH ×4 (06:50→21:10)
[2020-03-10 08:21] VITALS: BP 127/63
[2020-03-10] MEDS: INSULIN LISPRO 100 UNITS/ML SUBCUT SCH ×4 (09:00→21:00)
[2020-03-10] MEDS: FAMOTIDINE 20MG TABLET PO SCH ×2 (09:40→21:05)
[2020-03-10] MEDS: LISINOPRIL 10MG TABLET PO SCH (09:40)
[2020-03-10] MEDS: METFORMIN HCL 500MG TABLET PO SCH ×2 (09:40→16:50)
[2020-03-10] MEDS: DOCUSATE SODIUM 100MG CAPSULE PO SCH ×2 (09:40→16:50)
[2020-03-10] MEDS: HYDROCHLOROTHIAZIDE 25MG TABLET PO SCH (09:40)
[2020-03-10] MEDS: AMLODIPINE 10MG TABLET PO SCH (09:40)
[2020-03-10] MEDS: POTASSIUM CHLORIDE 20MEQ TABLET SR PO SCH (09:40)
[2020-03-10] MEDS: VENLAFAXINE HCL 37.5MG TABLET PO SCH (09:40)
[2020-03-10] MEDS: GABAPENTIN 300MG CAPSULE PO SCH ×3 (09:41→16:50)
[2020-03-10] MEDS: CARVEDILOL 12.5MG TABLET PO SCH ×2 (09:41→21:04)
[2020-03-10] MEDS: MONTELUKAST SODIUM 10MG TABLET PO SCH (16:50)
[2020-03-10 20:00] VITALS: BP 107/53
[2020-03-10] MEDS: ATORVASTATIN CALCIUM 20MG TABLET PO SCH (21:03)
[2020-03-10] MEDS: LATANOPROST 0.005% OPHTH DROPS 2.5ML BOTHEYE SCH (21:03)
[2020-03-11] MEDS: ACETAMINOPHEN 325MG TABLET PO PRN (03:09)
[2020-03-11] MEDS: CLONIDINE 0.1MG TABLET PO SCH ×3 (05:31→22:15)
[2020-03-11] MEDS: BLOOD SUGAR DIAGNOSTIC STRIP TEST SCH ×4 (05:32→21:00)
[2020-03-11] MEDS: TRAMADOL 50MG TABLET PO PRN ×2 (06:19→12:45)
[2020-03-11 06:24] LABS: HEMATOCRIT 31.7 % (36.0-48.0); HEMOGLOBIN 10.6 g/dL (12.0-16.0); MEAN CORPUSCULAR HEMOGLOBIN 28.8 pg (28.0-32.0); MEAN CORPUSCULAR VOLUME 86.1 fL (81.0-99.0); PLATELET 370 x1000/uL (130-400); RED BLOOD CELL COUNT 3.68 mill/uL (4.2-5.4); RED CELL DISTRIBUTION WIDTH 15.3 % (11.6-14.6)
[2020-03-11 06:43] LABS: CHLORIDE 102 mEq/L (98-107)
[2020-03-11 08:05] VITALS: BP 125/66
[2020-03-11] MEDS: LISINOPRIL 10MG TABLET PO SCH (08:59)
[2020-03-11] MEDS: METFORMIN HCL 500MG TABLET PO SCH ×2 (08:59→16:39)
[2020-03-11] MEDS: GABAPENTIN 300MG CAPSULE PO SCH ×3 (08:59→16:39)
[2020-03-11] MEDS: FAMOTIDINE 20MG TABLET PO SCH ×2 (08:59→22:15)
[2020-03-11] MEDS: VENLAFAXINE HCL 37.5MG TABLET PO SCH (08:59)
[2020-03-11] MEDS: HYDROCHLOROTHIAZIDE 25MG TABLET PO SCH (08:59)
[2020-03-11] MEDS: DOCUSATE SODIUM 100MG CAPSULE PO SCH ×2 (08:59→16:38)
[2020-03-11] MEDS: POTASSIUM CHLORIDE 20MEQ TABLET SR PO SCH (08:59)
[2020-03-11] MEDS: CARVEDILOL 12.5MG TABLET PO SCH ×2 (09:00→22:14)
[2020-03-11] MEDS: INSULIN LISPRO 100 UNITS/ML SUBCUT SCH ×4 (09:00→21:00)
[2020-03-11] MEDS: AMLODIPINE 10MG TABLET PO SCH (09:00)
[2020-03-11 12:47] VITALS: BP 114/63
[2020-03-11] MEDS: MONTELUKAST SODIUM 10MG TABLET PO SCH (16:38)
[2020-03-11 20:00] VITALS: BP 127/68
[2020-03-11] MEDS: ATORVASTATIN CALCIUM 20MG TABLET PO SCH (22:14)
[2020-03-11] MEDS: LATANOPROST 0.005% OPHTH DROPS 2.5ML BOTHEYE SCH (22:14)
[2020-03-12] MEDS: TRAMADOL 50MG TABLET PO PRN ×2 (03:57→13:08)
[2020-03-12] MEDS: CLONIDINE 0.1MG TABLET PO SCH ×3 (06:00→21:37)
[2020-03-12] MEDS: BLOOD SUGAR DIAGNOSTIC STRIP TEST SCH ×4 (07:14→21:36)
[2020-03-12] MEDS: INSULIN LISPRO 100 UNITS/ML SUBCUT SCH ×4 (07:48→21:00)
[2020-03-12 07:53] VITALS: BP 149/77
[2020-03-12] MEDS: GABAPENTIN 300MG CAPSULE PO SCH ×3 (08:44→17:03)
[2020-03-12] MEDS: METFORMIN HCL 500MG TABLET PO SCH ×2 (08:44→17:03)
[2020-03-12] MEDS: POTASSIUM CHLORIDE 20MEQ TABLET SR PO SCH (08:44)
[2020-03-12] MEDS: LISINOPRIL 10MG TABLET PO SCH (08:45)
[2020-03-12] MEDS: DOCUSATE SODIUM 100MG CAPSULE PO SCH ×2 (08:45→17:03)
[2020-03-12] MEDS: VENLAFAXINE HCL 37.5MG TABLET PO SCH (08:45)
[2020-03-12] MEDS: AMLODIPINE 10MG TABLET PO SCH (08:45)
[2020-03-12] MEDS: FAMOTIDINE 20MG TABLET PO SCH ×2 (08:45→21:40)
[2020-03-12] MEDS: HYDROCHLOROTHIAZIDE 25MG TABLET PO SCH (08:45)
[2020-03-12] MEDS: CARVEDILOL 12.5MG TABLET PO SCH ×2 (09:00→21:00)
[2020-03-12] MEDS: ACETAMINOPHEN 325MG TABLET PO PRN (09:07)
[2020-03-12 12:41] VITALS: BP 127/68
[2020-03-12] MEDS: MONTELUKAST SODIUM 10MG TABLET PO SCH (17:03)
[2020-03-12 20:00] VITALS: BP 108/66
[2020-03-12] MEDS: LATANOPROST 0.005% OPHTH DROPS 2.5ML BOTHEYE SCH (21:39)
[2020-03-12] MEDS: ATORVASTATIN CALCIUM 20MG TABLET PO SCH (21:40)
[2020-03-13] MEDS: CLONIDINE 0.1MG TABLET PO SCH ×3 (05:58→22:07)
[2020-03-13] MEDS: BLOOD SUGAR DIAGNOSTIC STRIP TEST SCH ×4 (05:59→21:00)
[2020-03-13] MEDS: INSULIN LISPRO 100 UNITS/ML SUBCUT SCH ×4 (05:59→21:00)
[2020-03-13] MEDS: ACETAMINOPHEN 325MG TABLET PO PRN ×2 (06:32→22:25)
[2020-03-13 08:30] VITALS: BP 143/76
[2020-03-13] MEDS: DOCUSATE SODIUM 100MG CAPSULE PO SCH ×2 (09:15→17:00)
[2020-03-13] MEDS: VENLAFAXINE HCL 37.5MG TABLET PO SCH (09:15)
[2020-03-13] MEDS: TRAMADOL 50MG TABLET PO PRN (09:15)
[2020-03-13] MEDS: FAMOTIDINE 20MG TABLET PO SCH ×2 (09:15→22:04)
[2020-03-13] MEDS: LISINOPRIL 10MG TABLET PO SCH (09:16)
[2020-03-13] MEDS: GABAPENTIN 300MG CAPSULE PO SCH ×3 (09:16→17:48)
[2020-03-13] MEDS: METFORMIN HCL 500MG TABLET PO SCH ×2 (09:16→17:48)
[2020-03-13] MEDS: POTASSIUM CHLORIDE 20MEQ TABLET SR PO SCH (09:16)
[2020-03-13] MEDS: HYDROCHLOROTHIAZIDE 25MG TABLET PO SCH (09:16)
[2020-03-13] MEDS: CARVEDILOL 12.5MG TABLET PO SCH ×2 (09:16→22:04)
[2020-03-13] MEDS: AMLODIPINE 10MG TABLET PO SCH (09:17)
[2020-03-13] MEDS: MONTELUKAST SODIUM 10MG TABLET PO SCH (17:48)
[2020-03-13 20:10] VITALS: BP 137/69
[2020-03-13] MEDS: ATORVASTATIN CALCIUM 20MG TABLET PO SCH (22:02)
[2020-03-13] MEDS: LATANOPROST 0.005% OPHTH DROPS 2.5ML BOTHEYE SCH (23:38)
[2020-03-14] MEDS: CLONIDINE 0.1MG TABLET PO SCH (05:26)
[2020-03-14] MEDS: BLOOD SUGAR DIAGNOSTIC STRIP TEST SCH ×2 (05:31→11:49)
[2020-03-14] MEDS: ACETAMINOPHEN 325MG TABLET PO PRN (06:37)
[2020-03-14] MEDS: VENLAFAXINE HCL 37.5MG TABLET PO SCH (08:19)
[2020-03-14] MEDS: AMLODIPINE 10MG TABLET PO SCH (08:19)
[2020-03-14] MEDS: GABAPENTIN 300MG CAPSULE PO SCH (08:19)
[2020-03-14] MEDS: HYDROCHLOROTHIAZIDE 25MG TABLET PO SCH (08:19)
[2020-03-14] MEDS: DOCUSATE SODIUM 100MG CAPSULE PO SCH (08:19)
[2020-03-14] MEDS: METFORMIN HCL 500MG TABLET PO SCH (08:19)
[2020-03-14] MEDS: FAMOTIDINE 20MG TABLET PO SCH (08:19)
[2020-03-14] MEDS: CARVEDILOL 12.5MG TABLET PO SCH (08:20)
[2020-03-14] MEDS: POTASSIUM CHLORIDE 20MEQ TABLET SR PO SCH (08:20)
[2020-03-14] MEDS: LISINOPRIL 10MG TABLET PO SCH (08:20)
[2020-03-14] MEDS: INSULIN LISPRO 100 UNITS/ML SUBCUT SCH ×2 (08:21→11:49)
[2020-03-14 08:24] VITALS: BP 118/61
[2020-03-14 11:51] VITALS: BP 118/61
== END 2020-03-14 14:28 | disposition home health service (06) | DRG 347 ==
PROVIDERS: ADMIT Psychiatry & Neurology Neurology; ATTEND Internal Medicine
DX: M47.12 Other spondylosis with myelopathy, cervical region (principal); M48.02 Spinal stenosis, cervical region; A41.9 Sepsis, unspecified organism; B96.89 Other specified bacterial agents as the cause of diseases classified elsewhere; E11.9 Type 2 diabetes mellitus without complications; E78.5 Hyperlipidemia, unspecified; E87.1 Hypo-osmolality and hyponatremia; E87.8 Other disorders of electrolyte and fluid balance, not elsewhere classified; F41.9 Anxiety disorder, unspecified; G35 Multiple sclerosis; G99.2 Myelopathy in diseases classified elsewhere; I10 Essential (primary) hypertension; I25.10 Atherosclerotic heart disease of native coronary artery without angina pectoris; I63.9 Cerebral infarction, unspecified; K21.9 Gastro-esophageal reflux disease without esophagitis; M10.9 Gout, unspecified; N39.0 Urinary tract infection, site not specified; E87.6 Hypokalemia; F32.9 Major depressive disorder, single episode, unspecified; J18.9 Pneumonia, unspecified organism; J44.0 Chronic obstructive pulmonary disease with (acute) lower respiratory infection; Z20.828 Contact with and (suspected) exposure to other viral communicable diseases; M47.22 Other spondylosis with radiculopathy, cervical region; I25.2 Old myocardial infarction; Z98.1 Arthrodesis status; Z90.710 Acquired absence of both cervix and uterus; Z90.49 Acquired absence of other specified parts of digestive tract; Z86.73 Personal history of transient ischemic attack (TIA), and cerebral infarction without residual deficits
CPT/HCPCS: 36415; 71045; 80048; 81003; 82550; 82607; 82728; 82962; 83036; 84443; 85025; 85027; 86140; 87635; 92523; 92610; 93970; 97110; 97112; 97116; 97162; 97166; 97530; 97535; C1893; J1815; J2543; J3490; J7040; J7060; L0172

== ENCOUNTER 2020-03-16 10:51 | Inpatient (IN) | payer MEDICARE, MEDICAID ==
[~2020-03-16] VITALS: Ht 162.6 cm; Wt 63.0 kg
[2020-03-16] MEDS ORDERED: MORPHINE SULFATE 2 MG/ML CPJ (NOT FOR IM USE) IV ONE (13:15)
[2020-03-16 15:04] LABS: CHLORIDE 104 mEq/L (98-107)
[2020-03-16 15:15] LABS: BASOPHILS % 0.5 % (0.0-2.0); EOSINOPHILS % 0.6 % (0.0-5.0); LYMPHOCYTES % 34.1 % (20.0-50.0); MEAN CORPUSCULAR HEMOGLOBIN 28.8 pg (28.0-32.0); MEAN CORPUSCULAR VOLUME 86.3 fL (81.0-99.0); MEAN PLATELET VOLUME 8.3 fl (7.4-10.4); MONOCYTES % 14.5 % (2.0-8.0); NEUTROPHILS % 50.3 % (40.0-76.0); PLATELET 288 x1000/uL (130-400); RED BLOOD CELL COUNT 4.17 mill/uL (4.2-5.4); RED CELL DISTRIBUTION WIDTH 15.3 % (11.6-14.6)
[2020-03-16 15:35] VITALS: BP 136/70
[2020-03-16 16:00] VITALS: BP 136/70
[2020-03-16 16:45] LABS: CLARITY URINE CLEAR (CLEAR); COLOR URINE YELLOW (YELLOW); KETONES URINE NEGATIVE (NEGATIVE); LEUKOCYTE ESTERASE URINE NEGATIVE (NEGATIVE); NITRITE URINE NEGATIVE (NEGATIVE); OCCULT BLOOD URINE NEGATIVE (NEGATIVE); PROTEIN URINE NEGATIVE (NEGATIVE); SPECIFIC GRAVITY URINE 1.013 (1.005-1.030); UROBILINOGEN URINE 0.2 E.U./dL (0.2-1.0)
[2020-03-16] MEDS ORDERED: MECLIZINE 25MG TABLET PO PRN (17:00)
[2020-03-16] MEDS ORDERED: CLONIDINE 0.1MG TABLET PO PRN ×2 (17:00)
[2020-03-16] MEDS ORDERED: DEXTROSE 50% WATER 50ML SYRINGE IV PRN (17:00)
[2020-03-16] MEDS ORDERED: ONDANSETRON HCL 4MG/2ML INJ IV PRN (17:00)
[2020-03-16] MEDS ORDERED: MAGNESIUM/ALUMINUM HYDROXIDE/SIMETHICONE 30ML UDC PO PRN (17:00)
[2020-03-16] MEDS ORDERED: DIPHENHYDRAMINE 50MG/ML VIAL IV PRN (17:00)
[2020-03-16] MEDS ORDERED: LORAZEPAM 0.5MG TABLET PO PRN (17:00)
[2020-03-16] MEDS ORDERED: ACETAMINOPHEN 325MG TABLET PO PRN ×2 (17:00)
[2020-03-16 17:16] LABS: *AMPHETAMINES SCREEN URINE NEGATIVE (NEGATIVE); *BARBITURATES SCREEN URINE NEGATIVE (NEGATIVE)
[2020-03-16 17:17] LABS: *BENZODIAZEPINES SCREEN URINE NEGATIVE (NEGATIVE); *COCAINE SCREEN URINE NEGATIVE (NEGATIVE); CANNABINOID URINE SCREEN NEGATIVE (NEGATIVE); METHADONE URINE SCREEN NEGATIVE (NEGATIVE); OPIATES URINE SCREEN PRESUMTIVE POSITIVE (NEGATIVE); PHENCYCLIDINE URINE SCREEN NEGATIVE (NEGATIVE)
[2020-03-16] MEDS: ENOXAPARIN 40MG/0.4ML SYR SUBCUT SCH (17:22)
[2020-03-16] MEDS: METFORMIN HCL 500MG TABLET PO SCH (17:22)
[2020-03-16] MEDS: TRAMADOL 50MG TABLET PO PRN (17:22)
[2020-03-16] MEDS: INSULIN LISPRO 100 UNITS/ML SUBCUT SCH ×2 (17:28→21:00)
[2020-03-16 20:00] VITALS: BP 137/69
[2020-03-16] MEDS ORDERED: ATORVASTATIN CALCIUM 20MG TABLET PO SCH (21:00)
[2020-03-16] MEDS ORDERED: ZOLPIDEM TARTRATE 5MG TABLET PO PRN (21:00)
[2020-03-16] MEDS: BLOOD SUGAR DIAGNOSTIC STRIP TEST SCH (21:11)
[2020-03-16] MEDS: GABAPENTIN 300MG CAPSULE PO SCH (21:25)
[2020-03-16] MEDS: CARVEDILOL 12.5MG TABLET PO SCH (21:26)
[2020-03-16] MEDS: SODIUM CHLORIDE 0.9% INJ 3ML FLUSH IVF SCH (21:26)
[2020-03-17] VITALS (7 sets, daily range): BP systolic 120–144; BP diastolic 62–77
[2020-03-17] MEDS ORDERED: SODIUM CHLORIDE 0.9% 500 ML IV ONE (03:30)
[2020-03-17] MEDS: SODIUM CHLORIDE 0.9% INJ 3ML FLUSH IVF SCH ×2 (05:09→13:59)
[2020-03-17] MEDS: GABAPENTIN 300MG CAPSULE PO SCH ×2 (05:25→13:59)
[2020-03-17] MEDS: INSULIN LISPRO 100 UNITS/ML SUBCUT SCH ×3 (05:45→16:26)
[2020-03-17] MEDS: BLOOD SUGAR DIAGNOSTIC STRIP TEST SCH ×3 (05:45→16:19)
[2020-03-17] MEDS: METFORMIN HCL 500MG TABLET PO SCH ×2 (08:31→16:19)
[2020-03-17] MEDS: CARVEDILOL 12.5MG TABLET PO SCH (08:32)
[2020-03-17] MEDS ORDERED: HYDROCHLOROTHIAZIDE 25MG TABLET PO SCH (09:00)
[2020-03-17] MEDS ORDERED: VENLAFAXINE HCL 37.5MG SR CAPSULE 24HR PO SCH (09:00)
[2020-03-17] MEDS ORDERED: AMLODIPINE 10MG TABLET PO SCH (09:00)
[2020-03-17] MEDS ORDERED: LISINOPRIL 10MG TABLET PO SCH (09:00)
[2020-03-17] MEDS: TRAMADOL 50MG TABLET PO PRN (12:15)
[2020-03-17] MEDS: ENOXAPARIN 40MG/0.4ML SYR SUBCUT SCH (16:19)
[2020-03-17] MEDS ORDERED: INFLUENZA VACCINE 05/PF 0.5 ML VIAL IM ONE (16:30)
== END 2020-03-17 18:05 | disposition home or self-care (01) | DRG 351 ==
LOC: ER 10:51 → 5WST 11:59 → ENRESERV 13:07
PROVIDERS: ADMIT Internal Medicine; ATTEND Internal Medicine
DX: S46.212A Strain of muscle, fascia and tendon of other parts of biceps, left arm, initial encounter (principal); K21.9 Gastro-esophageal reflux disease without esophagitis; X58.XXXA Exposure to other specified factors, initial encounter; E11.40 Type 2 diabetes mellitus with diabetic neuropathy, unspecified; E78.00 Pure hypercholesterolemia, unspecified; F17.200 Nicotine dependence, unspecified, uncomplicated; F32.9 Major depressive disorder, single episode, unspecified; F41.1 Generalized anxiety disorder; I10 Essential (primary) hypertension; M10.9 Gout, unspecified; M48.02 Spinal stenosis, cervical region; F41.9 Anxiety disorder, unspecified; Z82.49 Family history of ischemic heart disease and other diseases of the circulatory system; Z83.3 Family history of diabetes mellitus; Z86.73 Personal history of transient ischemic attack (TIA), and cerebral infarction without residual deficits; Z90.49 Acquired absence of other specified parts of digestive tract; Z90.710 Acquired absence of both cervix and uterus; I25.2 Old myocardial infarction; Z90.89 Acquired absence of other organs; Y93.89 Activity, other specified; Y92.89 Other specified places as the place of occurrence of the external cause; Y99.8 Other external cause status; Z79.899 Other long term (current) drug therapy
CPT/HCPCS: 36415; 71045; 80053; 80305; 81003; 82962; 83880; 84484; 85025; 90686; 93005; 93970; 99285; J1650; J1815; J2270; J7040; L0172

== ENCOUNTER 2020-04-23 18:12 | Emergency (ER) | payer MEDICARE, MEDICAID ==
[~2020-04-23] VITALS: Ht 165.1 cm; Wt 64.0 kg
[~2020-04-23 18:12] MED LIST changes: +LATA2.5D14 EACHEYE; -LATA2.5D2 EACHEYE; +LISI10TA26 PO; -LISI10TA5 PO
[2020-04-23] MEDS ORDERED: IBUPROFEN 600MG TABLET PO ONE (20:00)
[2020-04-23 20:22] VITALS: BP 158/80
== END 2020-04-23 23:34 | disposition home or self-care (01) ==
LOC: ER 18:12
DX: S40.012A Contusion of left shoulder, initial encounter (principal); S10.93XA Contusion of unspecified part of neck, initial encounter; E11.9 Type 2 diabetes mellitus without complications; E78.00 Pure hypercholesterolemia, unspecified; I25.2 Old myocardial infarction; I10 Essential (primary) hypertension; Z86.73 Personal history of transient ischemic attack (TIA), and cerebral infarction without residual deficits; Z79.899 Other long term (current) drug therapy; Z90.710 Acquired absence of both cervix and uterus; Z90.49 Acquired absence of other specified parts of digestive tract; Z98.890 Other specified postprocedural states; W18.39XA Other fall on same level, initial encounter; Y93.89 Activity, other specified; Y92.89 Other specified places as the place of occurrence of the external cause; Y99.8 Other external cause status
CPT/HCPCS: 72125; 73030; 99284; Z7610

== ENCOUNTER → 2020-05-17 | Outpatient (CLI) | payer MEDICARE, MEDICAID ==
[~2020-05-17] MED LIST changes: -LISI10TA26 PO; +LISI10TA5 PO
== END | disposition home or self-care (01) ==
LOC: RAD 12:02
PROVIDERS: ATTEND Neurological Surgery
DX: M47.812 Spondylosis without myelopathy or radiculopathy, cervical region (principal)
CPT/HCPCS: 72052

== ENCOUNTER → 2020-05-28 | Outpatient (CLI) | payer MEDICARE, MEDICAID | END | disposition home or self-care (01) | LOC: RAD 11:09 | PROVIDERS: ATTEND Neurological Surgery | DX: M25.512 Pain in left shoulder (principal) | CPT/HCPCS: 73030 ==

== ENCOUNTER 2020-06-04 09:54 | Emergency (ER) | payer MEDICARE, MEDICAID ==
[~2020-06-04] VITALS: Ht 162.6 cm; Wt 63.0 kg
[2020-06-04] MEDS: HYDROCODONE/ACETAMINOPHEN 5/325MG TABLET PO ONE (10:30)
[2020-06-04 12:04] VITALS: BP 151/76
== END 2020-06-04 12:10 | disposition home or self-care (01) ==
LOC: ER 10:00
DX: M54.2 Cervicalgia (principal); M25.512 Pain in left shoulder; I11.0 Hypertensive heart disease with heart failure; I50.9 Heart failure, unspecified; E78.00 Pure hypercholesterolemia, unspecified; E11.9 Type 2 diabetes mellitus without complications; Z90.710 Acquired absence of both cervix and uterus; Z79.899 Other long term (current) drug therapy; Z98.890 Other specified postprocedural states
CPT/HCPCS: 73030; 82962; 93005; 93971; 99285

== ENCOUNTER 2020-07-26 16:31 | Emergency (ER) | payer MEDICARE, MEDICAID ==
[~2020-07-26] VITALS: Ht 165.1 cm; Wt 74.0 kg
[~2020-07-26 16:31] MED LIST changes: +LISI10TA26 PO; -LISI10TA5 PO
[2020-07-26] MEDS ORDERED: GABA-529 MT (19:26)
[2020-07-26] MEDS ORDERED: GABAPENTIN 100MG CAPSULE PO ONE (19:30)
[2020-07-26] MEDS ORDERED: GABA100C MT (19:30)
[2020-07-26 20:27] VITALS: BP 154/66
== END 2020-07-26 20:29 | disposition home or self-care (01) ==
LOC: ER 16:31
DX: M79.602 Pain in left arm (principal); Z59.0 Homelessness; E11.9 Type 2 diabetes mellitus without complications; E78.00 Pure hypercholesterolemia, unspecified; I10 Essential (primary) hypertension; Z86.73 Personal history of transient ischemic attack (TIA), and cerebral infarction without residual deficits; Z90.710 Acquired absence of both cervix and uterus; Z79.899 Other long term (current) drug therapy
CPT/HCPCS: 99283

== ENCOUNTER 2020-10-30 11:41 | Emergency (ER) | payer MEDICARE, MEDICAID ==
[~2020-10-30] VITALS: Ht 165.1 cm; Wt 68.0 kg
[2020-10-30] MEDS ORDERED: KETOROLAC 60MG/2ML VIAL IM ONE (12:45)
[2020-10-30 13:42] VITALS: BP 159/79
== END 2020-10-30 13:44 | disposition home or self-care (01) ==
LOC: ER 11:41
DX: M54.2 Cervicalgia (principal); E11.9 Type 2 diabetes mellitus without complications; E78.00 Pure hypercholesterolemia, unspecified; I10 Essential (primary) hypertension; M48.02 Spinal stenosis, cervical region; G82.50 Quadriplegia, unspecified; I69.354 Hemiplegia and hemiparesis following cerebral infarction affecting left non-dominant side; Z88.8 Allergy status to other drugs, medicaments and biological substances; Z88.6 Allergy status to analgesic agent; Z98.890 Other specified postprocedural states
CPT/HCPCS: 72052; 93005; 96372; 99283; J1885

== ENCOUNTER → 2020-10-30 | Outpatient (CLI) | payer MEDICARE, MEDICAID ==
[~2020-10-30] MED LIST changes: +GABA-529 MT; +GABA100C MT; -LISI10TA26 PO
== END | disposition home or self-care (01) ==
LOC: RAD 10:39
PROVIDERS: ATTEND Neurological Surgery
DX: M47.812 Spondylosis without myelopathy or radiculopathy, cervical region (principal); M48.02 Spinal stenosis, cervical region; S13.130A Subluxation of C2/C3 cervical vertebrae, initial encounter; S13.170A Subluxation of C6/C7 cervical vertebrae, initial encounter; X58.XXXA Exposure to other specified factors, initial encounter; Y93.89 Activity, other specified; Y92.89 Other specified places as the place of occurrence of the external cause; Y99.8 Other external cause status
CPT/HCPCS: 72052

== ENCOUNTER 2020-11-20 09:11 | Inpatient (IN) | payer MEDICARE, MEDICAID ==
[~2020-11-20] VITALS: Ht 162.6 cm; Wt 67.6 kg
[2020-11-20] MEDS ORDERED: METHYLPREDNISOLONE SOD SUCC 125 MG/2 ML VIAL IV ONE (10:00)
[2020-11-20] MEDS ORDERED: DIPHENHYDRAMINE 25MG CAPSULE PO ONE (10:00)
[2020-11-20] MEDS ORDERED: FAMOTIDINE 20MG/2ML VIAL IV ONE (10:00)
[2020-11-20 10:52] LABS: BASOPHILS % 0.4 % (0.0-2.0); EOSINOPHILS % 1.1 % (0.0-5.0); HEMATOCRIT. 40.9 % (36.0-48.0); HEMOGLOBIN. 13.2 g/dL (12.0-16.0); MEAN CORPUSCULAR HEMOGLOBIN 28.2 pg (28.0-32.0); MEAN CORPUSCULAR VOLUME 87.3 fL (81.0-99.0); MEAN PLATELET VOLUME 8.5 fl (7.4-10.4); MONOCYTES % 7.6 % (2.0-8.0); NEUTROPHILS % 42.9 % (40.0-76.0); PLATELET 236 x1000/uL (130-400); RED BLOOD CELL COUNT 4.69 mill/uL (4.2-5.4); RED CELL DISTRIBUTION WIDTH 15.1 % (11.6-14.6)
[2020-11-20 10:59] LABS: CHLORIDE 109 mEq/L (98-107)
[2020-11-20] MEDS ORDERED: ACETAMINOPHEN 325MG TABLET PO ONE (12:00)
[2020-11-20] MEDS ORDERED: ONDANSETRON HCL 4MG/2ML INJ IV PRN (19:15)
[2020-11-20] MEDS ORDERED: DOCUSATE SODIUM 100MG CAPSULE PO PRN (19:15)
[2020-11-20] MEDS ORDERED: MAGNESIUM/ALUMINUM HYDROXIDE/SIMETHICONE 30ML UDC PO PRN (19:15)
[2020-11-20] MEDS ORDERED: GUAIFENESIN 200MG/10ML SUGAR FREE UDC PO PRN (19:15)
[2020-11-20] MEDS: AMLODIPINE 10MG TABLET PO SCH (20:28)
[2020-11-20] MEDS: CLONIDINE 0.1MG TABLET PO PRN ×2 (22:34→22:35)
[2020-11-20] MEDS: ENOXAPARIN 40MG/0.4ML SYR SUBCUT SCH (22:36)
[2020-11-20] MEDS: DIPHENHYDRAMINE 50MG CAPSULE PO SCH (22:36)
[2020-11-20] MEDS ORDERED: DEXTROSE 50% WATER 50ML SYRINGE IV PRN (22:45)
[2020-11-21] VITALS: BP_SYST 157; BP_SYST 210; BP_DIAS 77; BP_DIAS 93
[2020-11-21] MEDS ORDERED: BACL-141 PO (00:08)
[2020-11-21] MEDS ORDERED: HYDR-4134 PO (00:08)
[2020-11-21] MEDS ORDERED: *PATIENT'S OWN MEDICATION STORAGE XX SCH (00:45)
[2020-11-21 04:00] VITALS: BP 154/66
[2020-11-21] MEDS: BLOOD SUGAR DIAGNOSTIC STRIP TEST SCH ×4 (06:37→20:30)
[2020-11-21] MEDS: CLONIDINE 0.1MG TABLET PO PRN (06:38)
[2020-11-21] MEDS: PREDNISONE 20MG TABLET PO SCH (06:38)
[2020-11-21] MEDS: AMLODIPINE 10MG TABLET PO SCH (09:20)
[2020-11-21] MEDS: DIPHENHYDRAMINE 50MG CAPSULE PO SCH ×4 (09:21→20:44)
[2020-11-21] MEDS: ASPIRIN 81MG EC TABLET PO SCH (09:21)
[2020-11-21] MEDS: INSULIN LISPRO 100 UNITS/ML SUBCUT SCH ×4 (09:22→20:42)
[2020-11-21 09:41] LABS: BASOPHILS % 0.1 % (0.0-2.0); HEMATOCRIT. 41.1 % (36.0-48.0); HEMOGLOBIN. 13.2 g/dL (12.0-16.0); LYMPHOCYTES % 17.4 % (20.0-50.0); MEAN CORPUSCULAR VOLUME 87.5 fL (81.0-99.0); MONOCYTES % 2.5 % (2.0-8.0); RED CELL DISTRIBUTION WIDTH 15.1 % (11.6-14.6)
[2020-11-21 09:50] LABS: CHLORIDE 106 mEq/L (98-107)
[2020-11-21 09:53] VITALS: BP 124/73
[2020-11-21 12:00] VITALS: BP 159/79
[2020-11-21] MEDS: HYDRALAZINE HCL 25MG TABLET PO SCH ×2 (15:17→18:15)
[2020-11-21] MEDS: GABAPENTIN 100MG CAPSULE PO SCH ×2 (15:18→18:15)
[2020-11-21] MEDS: METFORMIN HCL 500MG TABLET PO SCH (15:22)
[2020-11-21 15:30] LABS: PLATELET 204 x1000/uL (130-400)
[2020-11-21 16:24] VITALS: BP 130/64
[2020-11-21 20:00] VITALS: BP 139/61
[2020-11-21] MEDS: ENOXAPARIN 40MG/0.4ML SYR SUBCUT SCH (20:43)
[2020-11-21] MEDS: CARVEDILOL 3.125 MG TABLET PO SCH (20:44)
[2020-11-21] MEDS ORDERED: BACLOFEN 10MG TABLET PO SCH (21:00)
[2020-11-21] MEDS ORDERED: LATANOPROST 0.005% OPHTH DROPS 2.5ML EACHEYE SCH (21:00)
[2020-11-21] MEDS ORDERED: ATORVASTATIN CALCIUM 20MG TABLET PO SCH (21:00)
[2020-11-22] VITALS: BP 158/57
[2020-11-22 04:00] VITALS: BP 150/73
[2020-11-22] MEDS: BLOOD SUGAR DIAGNOSTIC STRIP TEST SCH (05:08)
[2020-11-22] MEDS: INSULIN LISPRO 100 UNITS/ML SUBCUT SCH (05:23)
[2020-11-22 08:00] VITALS: BP 193/99
[2020-11-22] MEDS: GABAPENTIN 100MG CAPSULE PO SCH (10:05)
[2020-11-22] MEDS: ASPIRIN 81MG EC TABLET PO SCH (10:05)
[2020-11-22] MEDS: METFORMIN HCL 500MG TABLET PO SCH (10:06)
[2020-11-22] MEDS: CARVEDILOL 3.125 MG TABLET PO SCH (10:06)
[2020-11-22] MEDS: PREDNISONE 20MG TABLET PO SCH (10:06)
[2020-11-22] MEDS: DIPHENHYDRAMINE 50MG CAPSULE PO SCH (10:06)
[2020-11-22] MEDS: AMLODIPINE 10MG TABLET PO SCH (10:06)
[2020-11-22] MEDS: HYDRALAZINE HCL 25MG TABLET PO SCH (10:06)
[2020-11-22] MEDS ORDERED: CLONIDINE 0.2MG TABLET PO NR (10:30)
[2020-11-22 11:31] VITALS: BP 129/75
[2020-11-22 12:00] VITALS: BP 167/85
== END 2020-11-22 14:10 | disposition home or self-care (01) | DRG 811 ==
LOC: ER 09:11 → EDBEDREQ 15:22 → EDBEDREQTM 15:22 → ENRESERV 20:23 → 8WST 21:23
PROVIDERS: ADMIT Hospitalist; ATTEND Hospitalist
DX: T78.3XXA Angioneurotic edema, initial encounter (principal); E11.40 Type 2 diabetes mellitus with diabetic neuropathy, unspecified; I69.354 Hemiplegia and hemiparesis following cerebral infarction affecting left non-dominant side; I10 Essential (primary) hypertension; I25.10 Atherosclerotic heart disease of native coronary artery without angina pectoris; F41.1 Generalized anxiety disorder; M19.90 Unspecified osteoarthritis, unspecified site; Z82.49 Family history of ischemic heart disease and other diseases of the circulatory system; Z88.8 Allergy status to other drugs, medicaments and biological substances; Z79.899 Other long term (current) drug therapy; Z79.82 Long term (current) use of aspirin
CPT/HCPCS: 36415; 71045; 80053; 82962; 83036; 84484; 85025; 93005; 99285; J1650; J1815; J2930; J7512; Q0163

== ENCOUNTER 2020-12-16 11:30 | Emergency (ER) | payer MEDICARE, MEDICAID ==
[~2020-12-16] VITALS: Ht 170.2 cm; Wt 61.0 kg
[~2020-12-16 11:30] MED LIST changes: +BACL-141 PO; +HYDR-4134 PO
[2020-12-16] MEDS ORDERED: NAPROXEN 375MG TABLET PO ONE (12:15)
[2020-12-16] MEDS ORDERED: CLONIDINE 0.1MG TABLET PO ONE ×3 (12:30→15:15)
[2020-12-16 14:19] LABS: BASOPHILS % 0.6 % (0.0-2.0); EOSINOPHILS % 2.4 % (0.0-5.0); HEMATOCRIT. 38.5 % (36.0-48.0); HEMOGLOBIN. 12.7 g/dL (12.0-16.0); LYMPHOCYTES % 43.4 % (20.0-50.0); MEAN CORPUSCULAR HEMOGLOBIN 28.9 pg (28.0-32.0); MEAN CORPUSCULAR VOLUME 87.3 fL (81.0-99.0); MONOCYTES % 7.8 % (2.0-8.0); NEUTROPHILS % 45.8 % (40.0-76.0); RED BLOOD CELL COUNT 4.41 mill/uL (4.2-5.4); RED CELL DISTRIBUTION WIDTH 15.5 % (11.6-14.6)
[2020-12-16 14:31] LABS: CHLORIDE 113 mEq/L (98-107)
[2020-12-16] MEDS ORDERED: NAPR-679 MT (14:40)
[2020-12-16] MEDS ORDERED: AMLODIPINE 10MG TABLET PO ONE (15:15)
[2020-12-16 15:50] VITALS: BP 200/85
[2020-12-16 15:56] LABS: MEAN PLATELET VOLUME 9.7 fl (7.4-10.4); PLATELET 220 x1000/uL (130-400)
== END 2020-12-16 16:26 | disposition home or self-care (01) ==
LOC: ER 12:57
DX: S46.892A Other injury of other muscles, fascia and tendons at shoulder and upper arm level, left arm, initial encounter (principal); I10 Essential (primary) hypertension; X58.XXXA Exposure to other specified factors, initial encounter; Y93.89 Activity, other specified; Y92.89 Other specified places as the place of occurrence of the external cause
CPT/HCPCS: 29105; 36415; 71045; 73080; 80053; 85025; 93005; 93971; 99285

== ENCOUNTER 2021-01-17 22:51 | Emergency (ER) | payer MEDICARE, MEDICAID ==
[~2021-01-17] VITALS: Ht 172.7 cm; Wt 73.0 kg
[~2021-01-17 22:51] MED LIST changes: -AMLO10TA80 PO; +CLON0.2T PO; -GABA100C MT; -HYDR-4134 PO
[2021-01-17] MEDS ORDERED: IBUPROFEN 600MG TABLET PO STA (23:41)
[2021-01-18 01:28] LABS: BASOPHILS % 0.2 % (0.0-2.0); HEMATOCRIT. 37.2 % (36.0-48.0); HEMOGLOBIN. 12.1 g/dL (12.0-16.0); LYMPHOCYTES % 17.3 % (20.0-50.0); MEAN CORPUSCULAR VOLUME 88.8 fL (81.0-99.0); MEAN PLATELET VOLUME 8.7 fl (7.4-10.4); MONOCYTES % 4.8 % (2.0-8.0); NEUTROPHILS % 77.7 % (40.0-76.0); PLATELET 226 x1000/uL (130-400); RED BLOOD CELL COUNT 4.19 mill/uL (4.2-5.4)
[2021-01-18 01:29] LABS: CHLORIDE 111 mEq/L (98-107)
[2021-01-18 01:30] VITALS: BP 150/67
== END 2021-01-18 02:22 | disposition home or self-care (01) ==
LOC: ER 22:51
DX: R07.9 Chest pain, unspecified (principal); E11.65 Type 2 diabetes mellitus with hyperglycemia; I11.0 Hypertensive heart disease with heart failure; I50.9 Heart failure, unspecified; Z88.6 Allergy status to analgesic agent; Z88.8 Allergy status to other drugs, medicaments and biological substances; Z79.82 Long term (current) use of aspirin
CPT/HCPCS: 36415; 71045; 80053; 84484; 85025; 99284

== ENCOUNTER 2021-02-16 12:27 | Inpatient (IN) | payer MEDICARE, MEDICAID ==
[~2021-02-16] VITALS: Ht 162.6 cm; Wt 73.1 kg
[~2021-02-16 12:27] MED LIST changes: -GABA-529 MT; +HYDR100T26 MT; +MINO2.5T2 PO; +NAPR375T5 MT
[2021-02-16] MEDS ORDERED: ASPIRIN 81MG TABLET PO ONE (13:00)
[2021-02-16] MEDS ORDERED: FUROSEMIDE 20MG/2ML VIAL IVP ONE (13:00)
[2021-02-16 13:18] LABS: BASOPHILS % 0.5 % (0.0-2.0); EOSINOPHILS % 1.4 % (0.0-5.0); HEMATOCRIT. 32.1 % (36.0-48.0); HEMOGLOBIN. 10.4 g/dL (12.0-16.0); LYMPHOCYTES % 32.2 % (20.0-50.0); MEAN CORPUSCULAR HEMOGLOBIN 28.9 pg (28.0-32.0); MEAN CORPUSCULAR VOLUME 88.7 fL (81.0-99.0); MEAN PLATELET VOLUME 8.1 fl (7.4-10.4); MONOCYTES % 7.8 % (2.0-8.0); NEUTROPHILS % 58.1 % (40.0-76.0); PLATELET 247 x1000/uL (130-400); RED BLOOD CELL COUNT 3.61 mill/uL (4.2-5.4); RED CELL DISTRIBUTION WIDTH 16.3 % (11.6-14.6)
[2021-02-16 13:35] LABS: CHLORIDE 112 mEq/L (98-107)
[2021-02-16] MEDS ORDERED: DOXYCYCLINE HYCLATE 100 MG/VIAL IV ONE (15:30)
[2021-02-16] MEDS ORDERED: CEFTRIAXONE 1 G PREMIX 50 ML IV NR (15:30)
[2021-02-16] MEDS ORDERED: DOXYCYCLINE 100MG in DEXTROSE 5% WATER 100ML IV NR (16:00)
[2021-02-16] MEDS: CLONIDINE 0.1MG TABLET PO PRN (23:35)
[2021-02-17] VITALS (7 sets, daily range): BP systolic 138–167; BP diastolic 60–74
[2021-02-17] MEDS ORDERED: DEXTROSE 50% WATER 50ML SYRINGE IV PRN (01:15)
[2021-02-17] MEDS ORDERED: IPRATROPIUM/ALBUTEROL 0.5-3(2.5)MG/3ML NEB HHN PRN (01:15)
[2021-02-17] MEDS ORDERED: HYDRALAZINE 20MG/ML VIAL IV PRN (01:15)
[2021-02-17 02:39] LABS: BASOPHILS % 1.3 % (0.0-2.0); EOSINOPHILS % 1.5 % (0.0-5.0); HEMATOCRIT. 31.4 % (36.0-48.0); HEMOGLOBIN. 10.2 g/dL (12.0-16.0); LYMPHOCYTES % 35.2 % (20.0-50.0); MEAN CORPUSCULAR HEMOGLOBIN 28.6 pg (28.0-32.0); MEAN CORPUSCULAR VOLUME 88.1 fL (81.0-99.0); MEAN PLATELET VOLUME 8.3 fl (7.4-10.4); MONOCYTES % 9.3 % (2.0-8.0); NEUTROPHILS % 52.7 % (40.0-76.0); PLATELET 251 x1000/uL (130-400); RED BLOOD CELL COUNT 3.57 mill/uL (4.2-5.4); RED CELL DISTRIBUTION WIDTH 16.3 % (11.6-14.6)
[2021-02-17 04:54] LABS: CHLORIDE 113 mEq/L (98-107)
[2021-02-17 05:02] LABS: HDL CHOLESTEROL 47 mg/dL (40-59)
[2021-02-17 05:03] LABS: LDL CHOLESTEROL 49 mg/dL (5-100)
[2021-02-17 05:05] LABS: CREATINE KINASE 81 IU/L (26-192)
[2021-02-17 05:07] LABS: CREATINE KINASE MB FRACTION < 1.0 ng/mL (0.5-3.6)
[2021-02-17] MEDS ORDERED: CARVEDILOL 12.5MG TABLET PO SCH (09:00)
[2021-02-17] MEDS ORDERED: ENOXAPARIN 40MG/0.4ML SYR SUBCUT SCH (09:00)
[2021-02-17] MEDS: FUROSEMIDE 40MG/4ML VIAL IVP SCH (09:00)
[2021-02-17] MEDS ORDERED: FUROSEMIDE 20MG/2ML VIAL IV SCH (09:00)
[2021-02-17] MEDS ORDERED: MINOXIDIL 2.5MG TABLET PO SCH (09:00)
[2021-02-17] MEDS ORDERED: AZITHROMYCIN 500 MG TABLET PO SCH (09:00)
[2021-02-17 11:33] LABS: CREATINE KINASE 96 IU/L (26-192)
[2021-02-17 11:34] LABS: CREATINE KINASE MB FRACTION 2.1 ng/mL (0.5-3.6)
[2021-02-17] MEDS: HYDRALAZINE HCL 100MG TABLET PO SCH ×3 (14:00→22:00)
[2021-02-17] MEDS: CLONIDINE 0.2MG TABLET PO SCH ×2 (14:00→21:00)
[2021-02-17] MEDS: ASPIRIN 81MG EC TABLET PO SCH (14:13)
[2021-02-17] MEDS: VENLAFAXINE HCL 37.5MG SR CAPSULE 24HR PO SCH (14:22)
[2021-02-17] MEDS: CEFTRIAXONE 1,000 MG in DEXTROSE 5% WATER 50 ML IV SCH (16:14)
[2021-02-17] MEDS: TRAMADOL 50MG TABLET PO PRN (17:53)
[2021-02-17] MEDS: LATANOPROST 0.005% OPHTH DROPS 2.5ML EACHEYE SCH (20:51)
[2021-02-17] MEDS: OMEPRAZOLE 20MG CAPSULE EXTENDED RELEASE PO SCH (20:52)
[2021-02-17] MEDS: BACLOFEN 10MG TABLET PO SCH (20:52)
[2021-02-17] MEDS: CARVEDILOL 12.5MG TABLET PO SCH (20:52)
[2021-02-17] MEDS: INSULIN LISPRO 100 UNITS/ML SUBCUT SCH (20:53)
[2021-02-17] MEDS: BLOOD SUGAR DIAGNOSTIC STRIP TEST SCH (20:53)
[2021-02-17] MEDS: LORAZEPAM 0.5MG TABLET PO PRN (23:44)
[2021-02-18] VITALS (11 sets, daily range): BP systolic 113–219; BP diastolic 54–104
[2021-02-18] MEDS: HYDRALAZINE HCL 100MG TABLET PO SCH ×3 (05:39→22:12)
[2021-02-18] MEDS: BLOOD SUGAR DIAGNOSTIC STRIP TEST SCH ×3 (06:22→21:22)
[2021-02-18] MEDS: OMEPRAZOLE 20MG CAPSULE EXTENDED RELEASE PO SCH ×2 (06:22→20:46)
[2021-02-18 06:43] LABS: CHLORIDE 111 mEq/L (98-107)
[2021-02-18 07:33] LABS: BASOPHILS % 0.4 % (0.0-2.0); EOSINOPHILS % 1.4 % (0.0-5.0); HEMATOCRIT. 28.9 % (36.0-48.0); HEMOGLOBIN. 9.4 g/dL (12.0-16.0); LYMPHOCYTES % 36.9 % (20.0-50.0); MEAN CORPUSCULAR HEMOGLOBIN 28.7 pg (28.0-32.0); MEAN CORPUSCULAR VOLUME 88.2 fL (81.0-99.0); MEAN PLATELET VOLUME 8.4 fl (7.4-10.4); MONOCYTES % 9.9 % (2.0-8.0); NEUTROPHILS % 51.4 % (40.0-76.0); PLATELET 245 x1000/uL (130-400); RED BLOOD CELL COUNT 3.27 mill/uL (4.2-5.4); RED CELL DISTRIBUTION WIDTH 16.1 % (11.6-14.6)
[2021-02-18] MEDS: INSULIN LISPRO 100 UNITS/ML SUBCUT SCH ×3 (07:50→21:00)
[2021-02-18] MEDS: ASPIRIN 81MG EC TABLET PO SCH (08:45)
[2021-02-18] MEDS: CARVEDILOL 12.5MG TABLET PO SCH ×2 (08:45→20:45)
[2021-02-18] MEDS: CLONIDINE 0.2MG TABLET PO SCH ×2 (08:45→20:46)
[2021-02-18] MEDS: AMLODIPINE 2.5MG TABLET PO SCH (08:46)
[2021-02-18] MEDS: VENLAFAXINE HCL 37.5MG SR CAPSULE 24HR PO SCH (08:46)
[2021-02-18] MEDS: FUROSEMIDE 40MG/4ML VIAL IVP SCH (08:53)
[2021-02-18] MEDS ORDERED: METFORMIN HCL 500MG TABLET PO SCH (09:00)
[2021-02-18] MEDS: SODIUM CHLORIDE 0.45% 1,000 ML IV SCH ×2 (10:24→22:16)
[2021-02-18] MEDS ORDERED: PHENYLEPHRINE 100MCG/ML 10ML VIAL (CATH LAB) IV ONE (10:35)
[2021-02-18] MEDS ORDERED: NITROGLYCERIN 50MCG/ML 10ML VIAL (CATH LAB) IV ONE (10:35)
[2021-02-18] MEDS ORDERED: FENTANYL CITRATE/PF 50MCG/ML 2ML VIAL ONE ×2 (14:06→15:08)
[2021-02-18] MEDS ORDERED: MIDAZOLAM HCL 2 MG/2 ML VIAL ONE ×2 (14:06→15:08)
[2021-02-18] MEDS ORDERED: LIDOCAINE HCL 1% 30ML VIAL (10MG/ML) ONE (14:07)
[2021-02-18] MEDS ORDERED: IOHEXOL-300 100 ML BOTTLE ONE (14:07)
[2021-02-18] MEDS ORDERED: IODIXANOL 320MG/ML 100 ML BOTTLE IV ONE (14:07)
[2021-02-18] MEDS ORDERED: HEPARIN 1000 UNITS/ML 10ML ONE (14:22)
[2021-02-18] MEDS ORDERED: ONDANSETRON HCL 4MG/2ML INJ IV PRN (15:00)
[2021-02-18] MEDS ORDERED: ATROPINE SULFATE 1MG/10ML SYR IV PRN (15:00)
[2021-02-18] MEDS ORDERED: ACETAMINOPHEN 325MG TABLET PO PRN (15:00)
[2021-02-18] MEDS ORDERED: NALOXONE HCL 0.4MG/ML VIAL IV PRN (15:15)
[2021-02-18] MEDS: CLONIDINE 0.1MG TABLET PO PRN (16:38)
[2021-02-18] MEDS: CEFTRIAXONE 1,000 MG in DEXTROSE 5% WATER 50 ML IV SCH (18:19)
[2021-02-18] MEDS: TRAMADOL 50MG TABLET PO PRN (20:46)
[2021-02-18] MEDS: LATANOPROST 0.005% OPHTH DROPS 2.5ML EACHEYE SCH (21:00)
[2021-02-18] MEDS: BACLOFEN 10MG TABLET PO SCH ×2 (21:00→23:02)
[2021-02-18] MEDS: LORAZEPAM 0.5MG TABLET PO PRN (23:02)
[2021-02-19] VITALS (9 sets, daily range): BP systolic 130–170; BP diastolic 62–92
[2021-02-19] MEDS: HYDRALAZINE HCL 100MG TABLET PO SCH ×2 (05:32→14:12)
[2021-02-19] MEDS: TRAMADOL 50MG TABLET PO PRN (05:33)
[2021-02-19] MEDS: OMEPRAZOLE 20MG CAPSULE EXTENDED RELEASE PO SCH (06:05)
[2021-02-19] MEDS: BLOOD SUGAR DIAGNOSTIC STRIP TEST SCH ×2 (06:13→11:50)
[2021-02-19] MEDS: INSULIN LISPRO 100 UNITS/ML SUBCUT SCH ×2 (06:40→12:20)
[2021-02-19 07:01] LABS: CHLORIDE 109 mEq/L (98-107)
[2021-02-19 07:15] LABS: BASOPHILS % 0.4 % (0.0-2.0); EOSINOPHILS % 1.5 % (0.0-5.0); HEMATOCRIT. 30.6 % (36.0-48.0); HEMOGLOBIN. 9.8 g/dL (12.0-16.0); LYMPHOCYTES % 31.2 % (20.0-50.0); MEAN CORPUSCULAR HEMOGLOBIN 29.2 pg (28.0-32.0); MEAN CORPUSCULAR VOLUME 90.8 fL (81.0-99.0); MEAN PLATELET VOLUME 8.1 fl (7.4-10.4); MONOCYTES % 9.6 % (2.0-8.0); NEUTROPHILS % 57.3 % (40.0-76.0); PLATELET 258 x1000/uL (130-400); RED BLOOD CELL COUNT 3.37 mill/uL (4.2-5.4)
[2021-02-19] MEDS: ASPIRIN 81MG EC TABLET PO SCH (08:09)
[2021-02-19] MEDS: CARVEDILOL 12.5MG TABLET PO SCH (08:10)
[2021-02-19] MEDS: CLONIDINE 0.2MG TABLET PO SCH (08:10)
[2021-02-19] MEDS: FUROSEMIDE 40MG/4ML VIAL IVP SCH (08:11)
[2021-02-19] MEDS: VENLAFAXINE HCL 37.5MG SR CAPSULE 24HR PO SCH (08:13)
[2021-02-19] MEDS: AMLODIPINE 2.5MG TABLET PO SCH (09:20)
== END 2021-02-19 14:40 | disposition home or self-care (01) | DRG 192 ==
LOC: ER 12:38 → 6WST 15:30 → ENRESERV 22:29 → 3WST 02-18 15:50
PROVIDERS: ADMIT Internal Medicine; ATTEND Internal Medicine
PROC: 4A023N7 Measurement of Cardiac Sampling and Pressure, Left Heart, Percutaneous Approach (ICD-10-PCS; principal; 2021-02-18)
PROC: B2111ZZ Fluoroscopy of Multiple Coronary Arteries using Low Osmolar Contrast (ICD-10-PCS; 2021-02-18)
PROC: B2151ZZ Fluoroscopy of Left Heart using Low Osmolar Contrast (ICD-10-PCS; 2021-02-18)
DX: R07.89 Other chest pain (principal); J96.00 Acute respiratory failure, unspecified whether with hypoxia or hypercapnia; I50.33 Acute on chronic diastolic (congestive) heart failure; I31.3 Pericardial effusion (noninflammatory); D64.9 Anemia, unspecified; E11.9 Type 2 diabetes mellitus without complications; I25.110 Atherosclerotic heart disease of native coronary artery with unstable angina pectoris; I42.2 Other hypertrophic cardiomyopathy; E78.5 Hyperlipidemia, unspecified; J44.9 Chronic obstructive pulmonary disease, unspecified; J84.10 Pulmonary fibrosis, unspecified; F41.1 Generalized anxiety disorder; I11.0 Hypertensive heart disease with heart failure; K21.9 Gastro-esophageal reflux disease without esophagitis; M19.90 Unspecified osteoarthritis, unspecified site; R74.01 Elevation of levels of liver transaminase levels; Z20.822 Contact with and (suspected) exposure to COVID-19; Z86.73 Personal history of transient ischemic attack (TIA), and cerebral infarction without residual deficits; Z87.891 Personal history of nicotine dependence; Z88.8 Allergy status to other drugs, medicaments and biological substances; Z79.899 Other long term (current) drug therapy; Z79.82 Long term (current) use of aspirin; Z98.891 History of uterine scar from previous surgery
CPT/HCPCS: 36415; 71045; 80048; 80053; 80061; 80076; 82550; 82553; 82962; 83036; 83880; 84145; 84484; 85025; 87426; 93005; 93458; 99285; C1769; C1893; J0360; J0696; J1644; J1650; J1940; J2250; J2370; J3010; J3490; J7060; Q9967

== ENCOUNTER 2021-02-25 15:50 | Inpatient (IN) | payer MEDICARE, MEDICAID ==
[~2021-02-25] VITALS: Ht 162.6 cm; Wt 75.7 kg
[2021-02-25 16:52] LABS: BASOPHILS % 0.6 % (0.0-2.0); EOSINOPHILS % 0.8 % (0.0-5.0); HEMATOCRIT. 32.9 % (36.0-48.0); HEMOGLOBIN. 10.5 g/dL (12.0-16.0); LYMPHOCYTES % 24.3 % (20.0-50.0); MEAN CORPUSCULAR HEMOGLOBIN 28.1 pg (28.0-32.0); MEAN CORPUSCULAR VOLUME 87.9 fL (81.0-99.0); MEAN PLATELET VOLUME 7.8 fl (7.4-10.4); NEUTROPHILS % 67.3 % (40.0-76.0); PLATELET 287 x1000/uL (130-400); RED BLOOD CELL COUNT 3.74 mill/uL (4.2-5.4); RED CELL DISTRIBUTION WIDTH 16.4 % (11.6-14.6)
[2021-02-25 16:59] LABS: CHLORIDE 115 mEq/L (98-107)
[2021-02-25] MEDS ORDERED: CEFTRIAXONE 2 G PREMIX 50 ML IV ONE (19:00)
[2021-02-25] MEDS ORDERED: AZITHROMYCIN 500MG/250ML 250 ML IV ONE (19:00)
[2021-02-25] MEDS ORDERED: DEXTROSE 50% WATER 50ML SYRINGE IV PRN (22:00)
[2021-02-25] MEDS ORDERED: MAGNESIUM/ALUMINUM HYDROXIDE/SIMETHICONE 30ML UDC PO PRN (22:00)
[2021-02-25] MEDS ORDERED: PROMETHAZINE/DEXTROMETHORPHAN 6.25-15MG/5ML BOTTLE 120ML PO PRN (22:00)
[2021-02-25] MEDS: HYDRALAZINE HCL 100MG TABLET PO SCH (22:00)
[2021-02-25] MEDS ORDERED: MAGNESIUM HYDROXIDE 400MG/5ML 30ML UDC PO PRN (22:00)
[2021-02-25] MEDS: CLONIDINE 0.2MG TABLET PO SCH (23:00)
[2021-02-25] MEDS ORDERED: LEVOFLOXACIN 500MG PREMIX 100 ML IV SCH (23:00)
[2021-02-26 04:00] VITALS: BP 140/71
[2021-02-26] MEDS: HYDRALAZINE HCL 100MG TABLET PO SCH ×3 (06:43→23:08)
[2021-02-26] MEDS: OMEPRAZOLE 20MG CAPSULE EXTENDED RELEASE PO SCH ×2 (06:43→23:07)
[2021-02-26] MEDS: INSULIN LISPRO 100 UNITS/ML SUBCUT SCH ×4 (06:43→21:00)
[2021-02-26] MEDS: BLOOD SUGAR DIAGNOSTIC STRIP TEST SCH ×4 (06:43→21:00)
[2021-02-26 08:00] VITALS: BP 145/64
[2021-02-26] MEDS: VENLAFAXINE HCL 37.5MG SR CAPSULE 24HR PO SCH (08:19)
[2021-02-26] MEDS: METFORMIN HCL 500MG TABLET PO SCH (08:19)
[2021-02-26] MEDS: CARVEDILOL 12.5MG TABLET PO SCH ×2 (08:19→23:07)
[2021-02-26] MEDS: CLONIDINE 0.2MG TABLET PO SCH ×2 (08:19→23:14)
[2021-02-26] MEDS: AMLODIPINE 2.5MG TABLET PO SCH (08:20)
[2021-02-26] MEDS: GUAIFENESIN 600MG ER TABLET PO SCH ×2 (08:20→23:08)
[2021-02-26] MEDS: TRAMADOL 50MG TABLET PO PRN ×2 (09:06→23:08)
[2021-02-26 12:00] VITALS: BP 135/73
[2021-02-26 16:00] VITALS: BP 136/64
[2021-02-26] MEDS ORDERED: NALOXONE HCL 0.4MG/ML VIAL IV PRN (16:00)
[2021-02-26] MEDS: FUROSEMIDE 40MG/4ML VIAL IVP SCH (17:53)
[2021-02-26] MEDS: POTASSIUM CHLORIDE 20MEQ TABLET SR PO SCH (17:53)
[2021-02-26] MEDS: ENOXAPARIN 40MG/0.4ML SYR SUBCUT SCH (17:54)
[2021-02-26 20:00] VITALS: BP 158/65
[2021-02-26] MEDS: BACLOFEN 10MG TABLET PO SCH (23:07)
[2021-02-27] VITALS (7 sets, daily range): BP systolic 121–163; BP diastolic 53–73
[2021-02-27] MEDS: BLOOD SUGAR DIAGNOSTIC STRIP TEST SCH ×4 (05:51→19:58)
[2021-02-27] MEDS: INSULIN LISPRO 100 UNITS/ML SUBCUT SCH ×4 (05:51→21:00)
[2021-02-27] MEDS: FUROSEMIDE 40MG/4ML VIAL IVP SCH ×2 (05:54→17:23)
[2021-02-27] MEDS: HYDRALAZINE HCL 100MG TABLET PO SCH ×3 (05:54→21:18)
[2021-02-27] MEDS: OMEPRAZOLE 20MG CAPSULE EXTENDED RELEASE PO SCH ×2 (05:54→21:18)
[2021-02-27 08:42] LABS: BASOPHILS % 0.6 % (0.0-2.0); HEMATOCRIT. 30.5 % (36.0-48.0); HEMOGLOBIN. 9.9 g/dL (12.0-16.0); LYMPHOCYTES % 32.5 % (20.0-50.0); MEAN CORPUSCULAR HEMOGLOBIN 28.3 pg (28.0-32.0); MEAN CORPUSCULAR VOLUME 86.7 fL (81.0-99.0); MONOCYTES % 6.7 % (2.0-8.0); NEUTROPHILS % 59.2 % (40.0-76.0); PLATELET 274 x1000/uL (130-400); RED BLOOD CELL COUNT 3.52 mill/uL (4.2-5.4); RED CELL DISTRIBUTION WIDTH 15.9 % (11.6-14.6)
[2021-02-27 08:52] LABS: CHLORIDE 110 mEq/L (98-107)
[2021-02-27] MEDS: VENLAFAXINE HCL 37.5MG SR CAPSULE 24HR PO SCH (09:00)
[2021-02-27] MEDS: ENOXAPARIN 40MG/0.4ML SYR SUBCUT SCH (09:00)
[2021-02-27] MEDS: AMLODIPINE 2.5MG TABLET PO SCH (09:00)
[2021-02-27] MEDS: METFORMIN HCL 500MG TABLET PO SCH (09:00)
[2021-02-27] MEDS: POTASSIUM CHLORIDE 20MEQ TABLET SR PO SCH ×2 (09:00→17:23)
[2021-02-27] MEDS: CLONIDINE 0.2MG TABLET PO SCH ×2 (09:02→21:17)
[2021-02-27] MEDS: CARVEDILOL 12.5MG TABLET PO SCH ×2 (09:03→21:17)
[2021-02-27] MEDS: GUAIFENESIN 600MG ER TABLET PO SCH ×2 (09:16→21:17)
[2021-02-27] MEDS: BACLOFEN 10MG TABLET PO SCH (21:18)
[2021-02-28 04:00] VITALS: BP 125/57
[2021-02-28] MEDS: BLOOD SUGAR DIAGNOSTIC STRIP TEST SCH ×2 (05:08→12:53)
[2021-02-28] MEDS: OMEPRAZOLE 20MG CAPSULE EXTENDED RELEASE PO SCH (05:13)
[2021-02-28] MEDS: HYDRALAZINE HCL 100MG TABLET PO SCH ×2 (05:14→14:19)
[2021-02-28] MEDS: INSULIN LISPRO 100 UNITS/ML SUBCUT SCH ×2 (05:14→12:40)
[2021-02-28 07:23] LABS: BASOPHILS % 0.7 % (0.0-2.0); EOSINOPHILS % 0.8 % (0.0-5.0); HEMATOCRIT. 29.8 % (36.0-48.0); LYMPHOCYTES % 28.8 % (20.0-50.0); MEAN CORPUSCULAR VOLUME 86.1 fL (81.0-99.0); MEAN PLATELET VOLUME 8.1 fl (7.4-10.4); MONOCYTES % 6.3 % (2.0-8.0); NEUTROPHILS % 63.4 % (40.0-76.0); PLATELET 258 x1000/uL (130-400); RED BLOOD CELL COUNT 3.46 mill/uL (4.2-5.4); RED CELL DISTRIBUTION WIDTH 15.9 % (11.6-14.6)
[2021-02-28 08:00] VITALS: BP 161/62
[2021-02-28 08:07] LABS: CHLORIDE 108 mEq/L (98-107)
[2021-02-28] MEDS: VENLAFAXINE HCL 37.5MG SR CAPSULE 24HR PO SCH (09:17)
[2021-02-28] MEDS: METFORMIN HCL 500MG TABLET PO SCH (09:17)
[2021-02-28] MEDS: AMLODIPINE 2.5MG TABLET PO SCH (09:17)
[2021-02-28] MEDS: POTASSIUM CHLORIDE 20MEQ TABLET SR PO SCH (09:17)
[2021-02-28] MEDS: GUAIFENESIN 600MG ER TABLET PO SCH (09:17)
[2021-02-28] MEDS: CARVEDILOL 12.5MG TABLET PO SCH (09:18)
[2021-02-28] MEDS: CLONIDINE 0.2MG TABLET PO SCH (09:18)
[2021-02-28] MEDS: FUROSEMIDE 40MG/4ML VIAL IVP SCH (09:25)
[2021-02-28 12:00] VITALS: BP 148/63
[2021-02-28 15:11] VITALS: BP 142/63
[2021-02-28 16:00] VITALS: BP 145/65
== END 2021-02-28 18:45 | disposition home or self-care (01) | DRG 194 ==
LOC: ER 15:50 → MICUSO 23:43 → 8WST 02-26 03:00
PROVIDERS: ADMIT Internal Medicine; ATTEND Internal Medicine
DX: I11.0 Hypertensive heart disease with heart failure (principal); E87.0 Hyperosmolality and hypernatremia; I31.3 Pericardial effusion (noninflammatory); E11.40 Type 2 diabetes mellitus with diabetic neuropathy, unspecified; E78.5 Hyperlipidemia, unspecified; F32.A Depression, unspecified; K21.9 Gastro-esophageal reflux disease without esophagitis; M10.9 Gout, unspecified; Z60.2 Problems related to living alone; I50.33 Acute on chronic diastolic (congestive) heart failure; E78.00 Pure hypercholesterolemia, unspecified; F41.1 Generalized anxiety disorder; J84.10 Pulmonary fibrosis, unspecified; Z90.710 Acquired absence of both cervix and uterus; Z79.82 Long term (current) use of aspirin; Z79.899 Other long term (current) drug therapy; I69.322 Dysarthria following cerebral infarction; Z88.8 Allergy status to other drugs, medicaments and biological substances; Z79.84 Long term (current) use of oral hypoglycemic drugs; Z90.49 Acquired absence of other specified parts of digestive tract; J90 Pleural effusion, not elsewhere classified
CPT/HCPCS: 36415; 71045; 71250; 80048; 80053; 82962; 83880; 84484; 85025; 85379; 86038; 93005; 93308; 99285; A6261; J0456; J0696; J1650; J1940; J1956

== ENCOUNTER 2021-03-09 07:36 | Inpatient (IN) | payer MEDICARE, MEDICAID ==
[~2021-03-09] VITALS: Ht 162.6 cm; Wt 66.2 kg
[2021-03-09] MEDS ORDERED: ALBUTEROL (0.083%) 2.5MG/3ML NEB HHN ONE (09:00)
[2021-03-09 10:10] LABS: BASOPHILS % 0.7 % (0.0-2.0); EOSINOPHILS % 0.6 % (0.0-5.0); HEMOGLOBIN. 11.3 g/dL (12.0-16.0); LYMPHOCYTES % 32.1 % (20.0-50.0); MEAN CORPUSCULAR HEMOGLOBIN 27.9 pg (28.0-32.0); MEAN CORPUSCULAR VOLUME 86.1 fL (81.0-99.0); MEAN PLATELET VOLUME 7.6 fl (7.4-10.4); MONOCYTES % 13.7 % (2.0-8.0); NEUTROPHILS % 52.9 % (40.0-76.0); PLATELET 242 x1000/uL (130-400); RED BLOOD CELL COUNT 4.06 mill/uL (4.2-5.4); RED CELL DISTRIBUTION WIDTH 16.1 % (11.6-14.6)
[2021-03-09 10:15] LABS: CHLORIDE 106 mEq/L (98-107)
[2021-03-09 10:20] LABS: ETHANOL BLOOD < 10 mg/dL
[2021-03-09 10:21] LABS: C REACTIVE PROTEIN QUANT 3.5 mg/L (0.0-3.0)
[2021-03-09 10:23] LABS: CREATINE KINASE 104 IU/L (26-192)
[2021-03-09] MEDS ORDERED: METHYLPREDNISOLONE SOD SUCC 125 MG/2 ML VIAL IV ONE (11:00)
[2021-03-09] MEDS ORDERED: MAGNESIUM/ALUMINUM HYDROXIDE/SIMETHICONE 30ML UDC PO PRN (16:00)
[2021-03-09] MEDS ORDERED: ONDANSETRON HCL 4MG/2ML INJ IV PRN (16:00)
[2021-03-09] MEDS ORDERED: DEXTROSE 50% WATER 50ML SYRINGE IV PRN (16:00)
[2021-03-09] MEDS ORDERED: ACETAMINOPHEN 325MG TABLET PO PRN (16:00)
[2021-03-09] MEDS ORDERED: IPRATROPIUM/ALBUTEROL 0.5-3(2.5)MG/3ML NEB HHN PRN (16:00)
[2021-03-09] MEDS ORDERED: LEVOFLOXACIN 500MG PREMIX 100 ML IV SCH (16:30)
[2021-03-09] MEDS: BLOOD SUGAR DIAGNOSTIC STRIP TEST SCH ×2 (17:00→21:00)
[2021-03-09] MEDS ORDERED: CARVEDILOL 12.5MG TABLET PO SCH (17:00)
[2021-03-09] MEDS ORDERED: FUROSEMIDE 20MG TABLET PO SCH (17:15)
[2021-03-09] MEDS: POTASSIUM CHLORIDE 20MEQ TABLET SR PO SCH (17:43)
[2021-03-09] MEDS: CLONIDINE 0.2MG TABLET PO SCH (17:44)
[2021-03-09] MEDS: INSULIN LISPRO 100 UNITS/ML SUBCUT SCH ×2 (19:02→21:00)
[2021-03-09 20:15] VITALS: BP 120/58
[2021-03-09] MEDS ORDERED: GUAIFENESIN 600MG ER TABLET PO SCH (21:00)
[2021-03-09] MEDS ORDERED: OMEPRAZOLE 20MG CAPSULE EXTENDED RELEASE PO SCH (21:00)
[2021-03-09] MEDS ORDERED: HYDRALAZINE HCL 100MG TABLET PO SCH (22:00)
[2021-03-09] MEDS: ACETAMINOPHEN 325MG TABLET PO PRN (23:46)
[2021-03-09] MEDS: BACLOFEN 10MG TABLET PO SCH (23:46)
[2021-03-09] MEDS: DIPHENHYDRAMINE 50MG/ML VIAL IV PRN (23:46)
[2021-03-10] VITALS (7 sets, daily range): BP systolic 105–131; BP diastolic 50–70
[2021-03-10] MEDS: SODIUM CHLORIDE 0.9% INJ 3ML FLUSH IVF SCH ×4 (00:39→21:25)
[2021-03-10] MEDS: GUAIFENESIN 600MG ER TABLET PO SCH ×2 (00:41→21:27)
[2021-03-10] MEDS: HYDRALAZINE HCL 100MG TABLET PO SCH ×3 (05:58→22:00)
[2021-03-10] MEDS: CLONIDINE 0.2MG TABLET PO SCH ×2 (05:59→17:06)
[2021-03-10] MEDS: BLOOD SUGAR DIAGNOSTIC STRIP TEST SCH ×4 (07:20→21:27)
[2021-03-10 07:32] LABS: CHLORIDE 109 mEq/L (98-107)
[2021-03-10 07:43] LABS: PHOSPHORUS 2.9 mg/dL (2.5-4.9)
[2021-03-10] MEDS: INSULIN LISPRO 100 UNITS/ML SUBCUT SCH ×4 (07:50→21:00)
[2021-03-10] MEDS ORDERED: PNEUMOCOCCAL 23-VAL P-SAC VAC 0.5 ML IM ONE (08:00)
[2021-03-10] MEDS: VENLAFAXINE HCL 37.5MG SR CAPSULE 24HR PO SCH (08:47)
[2021-03-10] MEDS: FUROSEMIDE 20MG TABLET PO SCH ×2 (08:47→17:06)
[2021-03-10] MEDS: METFORMIN HCL 500MG TABLET PO SCH (08:47)
[2021-03-10] MEDS: OMEPRAZOLE 20MG CAPSULE EXTENDED RELEASE PO SCH ×2 (08:47→17:04)
[2021-03-10] MEDS: CARVEDILOL 12.5MG TABLET PO SCH ×2 (08:48→21:00)
[2021-03-10] MEDS: POTASSIUM CHLORIDE 20MEQ TABLET SR PO SCH ×2 (08:48→17:05)
[2021-03-10] MEDS: AMLODIPINE 2.5MG TABLET PO SCH (08:49)
[2021-03-10] MEDS: PROMETHAZINE/DEXTROMETHORPHAN 6.25-15MG/5ML BOTTLE 120ML PO PRN ×2 (08:52→17:06)
[2021-03-10] MEDS: ACETAMINOPHEN 325MG TABLET PO PRN (17:05)
[2021-03-10] MEDS: BACLOFEN 10MG TABLET PO SCH (21:26)
[2021-03-10] MEDS: BENZONATATE 100MG CAPSULE PO PRN (21:57)
[2021-03-11] VITALS: BP 144/65
[2021-03-11] MEDS: PROMETHAZINE/DEXTROMETHORPHAN 6.25-15MG/5ML BOTTLE 120ML PO PRN (02:47)
[2021-03-11 04:00] VITALS: BP 158/67
[2021-03-11] MEDS: OMEPRAZOLE 20MG CAPSULE EXTENDED RELEASE PO SCH ×2 (06:30→16:31)
[2021-03-11] MEDS: HYDRALAZINE HCL 100MG TABLET PO SCH ×3 (06:30→21:54)
[2021-03-11] MEDS: CLONIDINE 0.2MG TABLET PO SCH ×2 (06:30→18:35)
[2021-03-11] MEDS: FUROSEMIDE 20MG TABLET PO SCH ×2 (06:30→16:31)
[2021-03-11] MEDS: SODIUM CHLORIDE 0.9% INJ 3ML FLUSH IVF SCH ×3 (06:31→21:54)
[2021-03-11] MEDS: BLOOD SUGAR DIAGNOSTIC STRIP TEST SCH ×4 (06:31→21:54)
[2021-03-11] MEDS: INSULIN LISPRO 100 UNITS/ML SUBCUT SCH ×4 (07:48→21:00)
[2021-03-11 08:00] VITALS: BP 155/71
[2021-03-11] MEDS: IPRATROPIUM/ALBUTEROL 0.5-3(2.5)MG/3ML NEB HHN SCH ×3 (08:40→20:53)
[2021-03-11] MEDS ORDERED: LEVOFLOXACIN 500MG PREMIX 100 ML IV SCH (09:00)
[2021-03-11] MEDS: VENLAFAXINE HCL 37.5MG SR CAPSULE 24HR PO SCH (09:33)
[2021-03-11] MEDS: GUAIFENESIN 600MG ER TABLET PO SCH ×2 (09:34→21:54)
[2021-03-11] MEDS: METFORMIN HCL 500MG TABLET PO SCH (09:34)
[2021-03-11] MEDS: BENZONATATE 100MG CAPSULE PO PRN ×2 (09:34→21:54)
[2021-03-11] MEDS: POTASSIUM CHLORIDE 20MEQ TABLET SR PO SCH ×2 (09:34→16:31)
[2021-03-11] MEDS: CARVEDILOL 12.5MG TABLET PO SCH (09:35)
[2021-03-11] MEDS: AMLODIPINE 2.5MG TABLET PO SCH (09:36)
[2021-03-11 12:00] VITALS: BP 140/62
[2021-03-11 16:00] VITALS: BP 147/65
[2021-03-11] MEDS: LEVOFLOXACIN 500MG PREMIX 100 ML IV SCH (16:26)
[2021-03-11] MEDS ORDERED: AMLO2.5T45 PO (19:37)
[2021-03-11] MEDS ORDERED: IPRA3AMP9 HHN (19:37)
[2021-03-11] MEDS ORDERED: VENL37.55 PO (19:37)
[2021-03-11] MEDS ORDERED: FURO20TA4 PO (19:37)
[2021-03-11] MEDS ORDERED: OMEP20CA14 PO (19:37)
[2021-03-11] MEDS ORDERED: METF-414 PO (19:37)
[2021-03-11] MEDS ORDERED: HYDR100T26 PO (19:37)
[2021-03-11 20:00] VITALS: BP 132/63
[2021-03-11 21:32] LABS: BASOPHILS % 0.7 % (0.0-2.0); HEMATOCRIT. 32.2 % (36.0-48.0); HEMOGLOBIN. 10.6 g/dL (12.0-16.0); LYMPHOCYTES % 46.1 % (20.0-50.0); MEAN CORPUSCULAR HEMOGLOBIN 28.1 pg (28.0-32.0); MEAN CORPUSCULAR VOLUME 85.3 fL (81.0-99.0); MEAN PLATELET VOLUME 8.1 fl (7.4-10.4); MONOCYTES % 12.2 % (2.0-8.0); PLATELET 234 x1000/uL (130-400); RED BLOOD CELL COUNT 3.77 mill/uL (4.2-5.4); RED CELL DISTRIBUTION WIDTH 15.3 % (11.6-14.6)
[2021-03-11 21:43] LABS: CHLORIDE 108 mEq/L (98-107)
[2021-03-11] MEDS: BACLOFEN 10MG TABLET PO SCH (21:54)
[2021-03-12] VITALS (7 sets, daily range): BP systolic 125–175; BP diastolic 58–76
[2021-03-12] MEDS: BENZONATATE 100MG CAPSULE PO PRN (06:17)
[2021-03-12] MEDS: CLONIDINE 0.2MG TABLET PO SCH ×2 (06:17→17:33)
[2021-03-12] MEDS: FAMOTIDINE 20MG TABLET PO SCH (06:18)
[2021-03-12] MEDS: HYDRALAZINE HCL 100MG TABLET PO SCH ×3 (06:18→21:37)
[2021-03-12] MEDS: FUROSEMIDE 20MG TABLET PO SCH (06:18)
[2021-03-12] MEDS: ACETAMINOPHEN 325MG TABLET PO PRN (06:19)
[2021-03-12] MEDS: BLOOD SUGAR DIAGNOSTIC STRIP TEST SCH ×4 (06:20→21:37)
[2021-03-12] MEDS: SODIUM CHLORIDE 0.9% INJ 3ML FLUSH IVF SCH ×3 (06:20→21:37)
[2021-03-12 06:42] LABS: HEMATOCRIT. 31.8 % (36.0-48.0); HEMOGLOBIN. 10.6 g/dL (12.0-16.0); MEAN CORPUSCULAR HEMOGLOBIN 28.6 pg (28.0-32.0); MEAN CORPUSCULAR VOLUME 86.1 fL (81.0-99.0); MEAN PLATELET VOLUME 8.8 fl (7.4-10.4); PLATELET 225 x1000/uL (130-400); RED CELL DISTRIBUTION WIDTH 15.3 % (11.6-14.6)
[2021-03-12 06:46] LABS: CHLORIDE 107 mEq/L (98-107)
[2021-03-12] MEDS: INSULIN LISPRO 100 UNITS/ML SUBCUT SCH ×4 (07:50→21:00)
[2021-03-12] MEDS: IPRATROPIUM/ALBUTEROL 0.5-3(2.5)MG/3ML NEB HHN SCH ×4 (08:09→20:19)
[2021-03-12] MEDS: METFORMIN HCL 500MG TABLET PO SCH (08:51)
[2021-03-12] MEDS: GUAIFENESIN 600MG ER TABLET PO SCH ×2 (08:51→21:37)
[2021-03-12] MEDS: POTASSIUM CHLORIDE 20MEQ TABLET SR PO SCH ×2 (08:51→17:33)
[2021-03-12] MEDS: AMLODIPINE 2.5MG TABLET PO SCH (08:52)
[2021-03-12] MEDS: VENLAFAXINE HCL 37.5MG SR CAPSULE 24HR PO SCH (08:52)
[2021-03-12] MEDS ORDERED: FUROSEMIDE 40MG/4ML VIAL IVP NR (12:15)
[2021-03-12] MEDS: CLONIDINE 0.1MG TABLET PO PRN ×2 (12:31→12:40)
[2021-03-12] MEDS: LEVOFLOXACIN 500MG PREMIX 100 ML IV SCH (14:43)
[2021-03-12 18:17] LABS: PLATELET ESTIMATE NORMAL
[2021-03-12] MEDS: DIPHENHYDRAMINE 50MG/ML VIAL IV PRN (21:37)
[2021-03-12] MEDS: BACLOFEN 10MG TABLET PO SCH (21:37)
[2021-03-12] MEDS ORDERED: FUROSEMIDE 40MG/4ML VIAL IVP SCH (23:00)
[2021-03-13] VITALS: BP 146/62
[2021-03-13] MEDS: IPRATROPIUM/ALBUTEROL 0.5-3(2.5)MG/3ML NEB HHN SCH ×2 (01:13→09:40)
[2021-03-13] MEDS: DIPHENHYDRAMINE 50MG/ML VIAL IV PRN (01:37)
[2021-03-13 04:00] VITALS: BP 133/57
[2021-03-13] MEDS ORDERED: FUROSEMIDE 40MG/4ML VIAL IVP SCH (06:00)
[2021-03-13] MEDS: CLONIDINE 0.2MG TABLET PO SCH (06:20)
[2021-03-13] MEDS: SODIUM CHLORIDE 0.9% INJ 3ML FLUSH IVF SCH (06:20)
[2021-03-13] MEDS: FAMOTIDINE 20MG TABLET PO SCH (06:20)
[2021-03-13] MEDS: HYDRALAZINE HCL 100MG TABLET PO SCH (06:20)
[2021-03-13] MEDS: BLOOD SUGAR DIAGNOSTIC STRIP TEST SCH ×2 (06:20→11:58)
[2021-03-13] MEDS: INSULIN LISPRO 100 UNITS/ML SUBCUT SCH ×2 (06:58→11:58)
[2021-03-13 07:02] LABS: BASOPHILS % 0.5 % (0.0-2.0); EOSINOPHILS % 0.9 % (0.0-5.0); HEMATOCRIT. 34.9 % (36.0-48.0); HEMOGLOBIN. 11.4 g/dL (12.0-16.0); LYMPHOCYTES % 45.7 % (20.0-50.0); MEAN CORPUSCULAR HEMOGLOBIN 27.6 pg (28.0-32.0); MEAN CORPUSCULAR VOLUME 84.6 fL (81.0-99.0); MEAN PLATELET VOLUME 8.2 fl (7.4-10.4); MONOCYTES % 9.5 % (2.0-8.0); NEUTROPHILS % 43.4 % (40.0-76.0); PLATELET 246 x1000/uL (130-400); RED BLOOD CELL COUNT 4.13 mill/uL (4.2-5.4)
[2021-03-13 07:20] LABS: CHLORIDE 107 mEq/L (98-107)
[2021-03-13 08:00] VITALS: BP 132/72
[2021-03-13] MEDS: AMLODIPINE 2.5MG TABLET PO SCH (08:00)
[2021-03-13] MEDS: POTASSIUM CHLORIDE 20MEQ TABLET SR PO SCH (08:00)
[2021-03-13] MEDS: VENLAFAXINE HCL 37.5MG SR CAPSULE 24HR PO SCH (08:00)
[2021-03-13] MEDS: METFORMIN HCL 500MG TABLET PO SCH (08:00)
[2021-03-13] MEDS: GUAIFENESIN 600MG ER TABLET PO SCH (08:03)
[2021-03-13] MEDS ORDERED: POTASSIUM CHLORIDE 10MEQ TABLET SR PO SCH (09:00)
[2021-03-13] MEDS ORDERED: LEVOFLOXACIN 500MG TABLET PO SCH (11:00)
[2021-03-13] MEDS: BENZONATATE 100MG CAPSULE PO PRN (12:02)
[2021-03-13 12:16] VITALS: BP 142/66
[2021-03-13 12:19] VITALS: BP 142/66
[2021-03-13 16:05] VITALS: BP 142/60
[2021-03-13] MEDS ORDERED: FUROSEMIDE 40MG TABLET PO SCH (21:00)
== END 2021-03-13 16:35 | disposition home or self-care (01) | DRG 140 ==
LOC: ER 07:36 → EDBEDREQ 12:18 → ENRESERV 12:55 → CANRESERV 12:55 → ENRESERV 16:55 → 6WST 23:10
PROVIDERS: ADMIT Internal Medicine; ATTEND Internal Medicine
DX: J44.0 Chronic obstructive pulmonary disease with (acute) lower respiratory infection (principal); I50.33 Acute on chronic diastolic (congestive) heart failure; I42.9 Cardiomyopathy, unspecified; I31.3 Pericardial effusion (noninflammatory); J20.9 Acute bronchitis, unspecified; J44.1 Chronic obstructive pulmonary disease with (acute) exacerbation; I11.0 Hypertensive heart disease with heart failure; E11.40 Type 2 diabetes mellitus with diabetic neuropathy, unspecified; F41.1 Generalized anxiety disorder; E78.00 Pure hypercholesterolemia, unspecified; F32.A Depression, unspecified; M10.9 Gout, unspecified; Z20.822 Contact with and (suspected) exposure to COVID-19; K21.9 Gastro-esophageal reflux disease without esophagitis; I35.8 Other nonrheumatic aortic valve disorders; Z88.8 Allergy status to other drugs, medicaments and biological substances; Z79.899 Other long term (current) drug therapy; Z79.82 Long term (current) use of aspirin; Z79.84 Long term (current) use of oral hypoglycemic drugs; Z82.49 Family history of ischemic heart disease and other diseases of the circulatory system; Z83.3 Family history of diabetes mellitus; Z87.891 Personal history of nicotine dependence; Z86.73 Personal history of transient ischemic attack (TIA), and cerebral infarction without residual deficits; Z90.710 Acquired absence of both cervix and uterus
CPT/HCPCS: 36415; 71045; 80048; 80053; 80320; 82550; 82728; 82962; 83605; 83735; 83880; 84100; 84145; 84484; 85025; 86140; 86850; 86900; 90732; 93005; 93308; 93970; 94640; 97162; 99285; C1893; C9803; J1200; J1815; J1940; J1956; J2930; U0003; U0005; G0480

== ENCOUNTER 2021-07-04 17:19 | Inpatient (IN) | payer MEDICARE, MEDICAID ==
[~2021-07-04] VITALS: Ht 162.6 cm; Wt 70.8 kg
[~2021-07-04 17:19] MED LIST changes: +ALBU6.7H9 INH; +ALLO100T PO; +AMLO2.5T45 PO; +ATOR10TA69 PO; +CARV12.545 PO; +CLON-457 PO; +CLON0.1T PO; -CLON0.2T PO; +COR12 PO; -COR3 PO; +FURO20TA4 PO; +HYDR-4134 PO; -HYDR100T26 MT; +HYDR100T26 PO; +IPRA3AMP9 HHN; +LATA2.5D14 OP; -METF500T PO; +NAPR275T96 MT; +OMEP20CA14 PO; -SIMV-43 PO; +VENL-179 PO; +VENL37.55 PO
[2021-07-04] MEDS ORDERED: ASPIRIN 81MG TABLET PO ONE (18:00)
[2021-07-04] MEDS ORDERED: NITROGLYCERIN 0.4MG TABLET SL SL PRN (18:00)
[2021-07-04 18:55] LABS: BASOPHILS % 0.6 % (0.0-2.0); EOSINOPHILS % 0.7 % (0.0-5.0); HEMATOCRIT. 36.5 % (36.0-48.0); HEMOGLOBIN. 12.1 g/dL (12.0-16.0); LYMPHOCYTES % 35.6 % (20.0-50.0); MEAN CORPUSCULAR HEMOGLOBIN 28.3 pg (28.0-32.0); MEAN CORPUSCULAR VOLUME 85.7 fL (81.0-99.0); MEAN PLATELET VOLUME 8.5 fl (7.4-10.4); MONOCYTES % 7.8 % (2.0-8.0); NEUTROPHILS % 55.3 % (40.0-76.0); PLATELET 261 x1000/uL (130-400); RED BLOOD CELL COUNT 4.26 mill/uL (4.2-5.4); RED CELL DISTRIBUTION WIDTH 17.7 % (11.6-14.6)
[2021-07-04 19:01] LABS: CHLORIDE 110 mEq/L (98-107)
[2021-07-04] MEDS: CLONIDINE 0.1MG TABLET PO PRN (22:13)
[2021-07-04] MEDS: HYDROCODONE/ACETAMINOPHEN 10/325MG TABLET PO PRN (22:14)
[2021-07-05] MEDS: CLONIDINE 0.1MG TABLET PO PRN (03:08)
[2021-07-05 06:00] VITALS: BP 146/69
[2021-07-05] MEDS ORDERED: ALBUTEROL 6.7GM HFA INHALER INH SCH (06:30)
[2021-07-05] MEDS ORDERED: CLONIDINE 0.1MG TABLET PO PRN (07:15)
[2021-07-05 08:00] VITALS: BP 166/66
[2021-07-05] MEDS ORDERED: NALOXONE HCL 0.4MG/ML VIAL IV PRN (08:15)
[2021-07-05] MEDS ORDERED: CLONIDINE 0.1MG TABLET PO SCH (09:00)
[2021-07-05 09:58] LABS: BASOPHILS % 0.5 % (0.0-2.0); EOSINOPHILS % 1.2 % (0.0-5.0); HEMATOCRIT. 34.5 % (36.0-48.0); HEMOGLOBIN. 11.1 g/dL (12.0-16.0); LYMPHOCYTES % 39.1 % (20.0-50.0); MEAN CORPUSCULAR VOLUME 86.6 fL (81.0-99.0); MEAN PLATELET VOLUME 8.6 fl (7.4-10.4); MONOCYTES % 7.4 % (2.0-8.0); NEUTROPHILS % 51.8 % (40.0-76.0); PLATELET 243 x1000/uL (130-400); RED BLOOD CELL COUNT 3.98 mill/uL (4.2-5.4)
[2021-07-05] MEDS: VENLAFAXINE HCL 37.5MG SR CAPSULE 24HR PO SCH (10:16)
[2021-07-05] MEDS: HYDRALAZINE HCL 25MG TABLET PO SCH ×3 (10:16→21:50)
[2021-07-05] MEDS: MINOXIDIL 2.5MG TABLET PO SCH (10:16)
[2021-07-05] MEDS: FUROSEMIDE 20MG TABLET PO SCH ×2 (10:17→17:55)
[2021-07-05] MEDS: ASPIRIN 81MG EC TABLET PO SCH (10:17)
[2021-07-05] MEDS: OMEPRAZOLE 20MG CAPSULE EXTENDED RELEASE PO SCH ×2 (10:18→17:55)
[2021-07-05] MEDS: ALLOPURINOL 100 MG TABLET PO SCH (10:18)
[2021-07-05] MEDS: AMLODIPINE 2.5MG TABLET PO SCH (10:18)
[2021-07-05 10:21] LABS: CHLORIDE 110 mEq/L (98-107)
[2021-07-05 10:28] LABS: LDL CHOLESTEROL 65 mg/dL (5-100)
[2021-07-05 10:30] LABS: HDL CHOLESTEROL 49 mg/dL (40-59)
[2021-07-05 12:00] VITALS: BP 160/64
[2021-07-05] MEDS ORDERED: ALBUTEROL (0.083%) 2.5MG/3ML NEB HHN SCH (12:00)
[2021-07-05] MEDS: HYDROCODONE/ACETAMINOPHEN 10/325MG TABLET PO PRN ×2 (14:22→20:30)
[2021-07-05 16:00] VITALS: BP 152/62
[2021-07-05] MEDS: IPRATROPIUM/ALBUTEROL 0.5-3(2.5)MG/3ML NEB HHN SCH ×2 (17:06→21:00)
[2021-07-05] MEDS ORDERED: DEXTROSE 50% WATER 50ML SYRINGE IV PRN (19:00)
[2021-07-05 20:00] VITALS: BP 127/50
[2021-07-05 20:15] LABS: CREATINE KINASE 66 IU/L (26-192)
[2021-07-05 20:16] LABS: CREATINE KINASE MB FRACTION < 1.0 ng/mL (0.5-3.6)
[2021-07-05] MEDS: LATANOPROST 0.005% OPHTH DROPS 2.5ML EACHEYE SCH (20:29)
[2021-07-05] MEDS ORDERED: LATANOPROST 0.005% OPHTH DROPS 2.5ML BOTHEYE SCH (21:00)
[2021-07-05] MEDS: BLOOD SUGAR DIAGNOSTIC STRIP TEST SCH (21:48)
[2021-07-05] MEDS: ATORVASTATIN CALCIUM 10MG TABLET PO SCH (21:48)
[2021-07-05] MEDS: INSULIN LISPRO 100 UNITS/ML SUBCUT SCH (21:52)
[2021-07-05] MEDS ORDERED: DIPHENHYDRAMINE 50MG CAPSULE PO PRN (23:00)
[2021-07-06] VITALS (7 sets, daily range): BP systolic 132–155; BP diastolic 54–67
[2021-07-06] MEDS: IPRATROPIUM/ALBUTEROL 0.5-3(2.5)MG/3ML NEB HHN SCH ×3 (03:01→13:49)
[2021-07-06] MEDS: HYDRALAZINE HCL 25MG TABLET PO SCH ×3 (06:03→21:36)
[2021-07-06] MEDS: HYDROCODONE/ACETAMINOPHEN 10/325MG TABLET PO PRN ×3 (06:04→21:36)
[2021-07-06] MEDS: OMEPRAZOLE 20MG CAPSULE EXTENDED RELEASE PO SCH (06:17)
[2021-07-06] MEDS: FUROSEMIDE 20MG TABLET PO SCH ×2 (06:17→17:29)
[2021-07-06] MEDS: BLOOD SUGAR DIAGNOSTIC STRIP TEST SCH ×4 (06:17→20:55)
[2021-07-06] MEDS ORDERED: MORPHINE SULFATE 2 MG/ML CPJ (NOT FOR IM USE) IV PRN (07:15)
[2021-07-06] MEDS: INSULIN LISPRO 100 UNITS/ML SUBCUT SCH ×4 (07:40→21:37)
[2021-07-06 07:56] LABS: BASOPHILS % 0.5 % (0.0-2.0); EOSINOPHILS % 0.9 % (0.0-5.0); HEMATOCRIT. 32.9 % (36.0-48.0); HEMOGLOBIN. 10.9 g/dL (12.0-16.0); LYMPHOCYTES % 44.1 % (20.0-50.0); MEAN CORPUSCULAR HEMOGLOBIN 28.2 pg (28.0-32.0); MEAN CORPUSCULAR VOLUME 84.7 fL (81.0-99.0); MEAN PLATELET VOLUME 8.4 fl (7.4-10.4); MONOCYTES % 7.5 % (2.0-8.0); PLATELET 244 x1000/uL (130-400); RED BLOOD CELL COUNT 3.88 mill/uL (4.2-5.4); RED CELL DISTRIBUTION WIDTH 17.5 % (11.6-14.6)
[2021-07-06 07:57] LABS: CHLORIDE 110 mEq/L (98-107)
[2021-07-06] MEDS: ALLOPURINOL 100 MG TABLET PO SCH (08:17)
[2021-07-06] MEDS: AMLODIPINE 2.5MG TABLET PO SCH (08:17)
[2021-07-06] MEDS: VENLAFAXINE HCL 37.5MG SR CAPSULE 24HR PO SCH (08:21)
[2021-07-06] MEDS: ASPIRIN 81MG EC TABLET PO SCH (08:21)
[2021-07-06] MEDS: MINOXIDIL 2.5MG TABLET PO SCH (08:21)
[2021-07-06] MEDS ORDERED: IPRATROPIUM/ALBUTEROL 0.5-3(2.5)MG/3ML NEB HHN PRN (14:00)
[2021-07-06] MEDS: FAMOTIDINE 20MG TABLET PO SCH (17:29)
[2021-07-06] MEDS: ATORVASTATIN CALCIUM 10MG TABLET PO SCH (21:36)
[2021-07-06] MEDS: LATANOPROST 0.005% OPHTH DROPS 2.5ML EACHEYE SCH (21:51)
[2021-07-07] VITALS: BP 128/60
[2021-07-07] MEDS: HYDROCODONE/ACETAMINOPHEN 10/325MG TABLET PO PRN ×3 (02:30→22:03)
[2021-07-07 04:00] VITALS: BP 143/86
[2021-07-07] MEDS: HYDRALAZINE HCL 25MG TABLET PO SCH ×3 (06:10→22:03)
[2021-07-07] MEDS: BLOOD SUGAR DIAGNOSTIC STRIP TEST SCH ×4 (06:10→21:00)
[2021-07-07] MEDS: INSULIN LISPRO 100 UNITS/ML SUBCUT SCH ×4 (06:10→21:00)
[2021-07-07] MEDS: FAMOTIDINE 20MG TABLET PO SCH ×2 (06:10→16:45)
[2021-07-07] MEDS: FUROSEMIDE 20MG TABLET PO SCH ×2 (06:11→16:45)
[2021-07-07 08:00] VITALS: BP 161/71
[2021-07-07] MEDS: MINOXIDIL 2.5MG TABLET PO SCH (08:41)
[2021-07-07] MEDS: VENLAFAXINE HCL 37.5MG SR CAPSULE 24HR PO SCH (08:41)
[2021-07-07] MEDS: ASPIRIN 81MG EC TABLET PO SCH (08:41)
[2021-07-07] MEDS: ALLOPURINOL 100 MG TABLET PO SCH (08:41)
[2021-07-07] MEDS: AMLODIPINE 2.5MG TABLET PO SCH (08:42)
[2021-07-07 12:00] VITALS: BP 148/65
[2021-07-07 16:00] VITALS: BP 121/67
[2021-07-07] MEDS: DOCUSATE SODIUM 250MG CAPSULE PO SCH (16:45)
[2021-07-07 20:00] VITALS: BP 167/69
[2021-07-07] MEDS: ATORVASTATIN CALCIUM 10MG TABLET PO SCH (22:03)
[2021-07-07] MEDS: CLONIDINE 0.1MG TABLET PO PRN (22:03)
[2021-07-07] MEDS: LATANOPROST 0.005% OPHTH DROPS 2.5ML EACHEYE SCH (22:05)
[2021-07-08] VITALS: BP 142/52
[2021-07-08 04:00] VITALS: BP 137/67
[2021-07-08] MEDS: BLOOD SUGAR DIAGNOSTIC STRIP TEST SCH ×2 (06:01→12:10)
[2021-07-08] MEDS: HYDRALAZINE HCL 25MG TABLET PO SCH ×2 (06:16→14:00)
[2021-07-08] MEDS: FUROSEMIDE 20MG TABLET PO SCH (06:17)
[2021-07-08] MEDS: FAMOTIDINE 20MG TABLET PO SCH (06:17)
[2021-07-08] MEDS: INSULIN LISPRO 100 UNITS/ML SUBCUT SCH ×2 (06:20→12:40)
[2021-07-08] MEDS: HYDROCODONE/ACETAMINOPHEN 10/325MG TABLET PO PRN ×2 (06:31→12:39)
[2021-07-08 08:00] VITALS: BP 141/65
[2021-07-08] MEDS: VENLAFAXINE HCL 37.5MG SR CAPSULE 24HR PO SCH (08:58)
[2021-07-08] MEDS: ASPIRIN 81MG EC TABLET PO SCH (08:58)
[2021-07-08] MEDS: DOCUSATE SODIUM 250MG CAPSULE PO SCH (08:58)
[2021-07-08] MEDS: AMLODIPINE 2.5MG TABLET PO SCH (08:58)
[2021-07-08] MEDS: MINOXIDIL 2.5MG TABLET PO SCH (08:58)
[2021-07-08] MEDS: ALLOPURINOL 100 MG TABLET PO SCH (08:58)
[2021-07-08 12:00] VITALS: BP 111/60
[2021-07-08 13:40] VITALS: BP 110/65
== END 2021-07-08 15:56 | disposition home health service (06) | DRG 203 ==
LOC: ER 17:19 → MICUSO 20:21 → EDBEDREQ 20:23 → EDBEDREQTM 20:23 → 8WST 07-05 04:27
PROVIDERS: ADMIT Internal Medicine; ATTEND Internal Medicine
DX: M94.0 Chondrocostal junction syndrome [Tietze] (principal); I31.3 Pericardial effusion (noninflammatory); E87.8 Other disorders of electrolyte and fluid balance, not elsewhere classified; F03.90 Unspecified dementia, unspecified severity, without behavioral disturbance, psychotic disturbance, mood disturbance, and anxiety; E78.5 Hyperlipidemia, unspecified; I11.0 Hypertensive heart disease with heart failure; I50.32 Chronic diastolic (congestive) heart failure; K21.9 Gastro-esophageal reflux disease without esophagitis; I16.0 Hypertensive urgency; I35.2 Nonrheumatic aortic (valve) stenosis with insufficiency; Z20.822 Contact with and (suspected) exposure to COVID-19; R74.01 Elevation of levels of liver transaminase levels; Z88.8 Allergy status to other drugs, medicaments and biological substances; Z79.899 Other long term (current) drug therapy; Z79.82 Long term (current) use of aspirin; Z83.3 Family history of diabetes mellitus; Z82.49 Family history of ischemic heart disease and other diseases of the circulatory system
CPT/HCPCS: 36415; 71045; 80048; 80053; 80061; 82550; 82553; 82962; 83036; 83735; 83880; 84443; 84484; 85025; 87426; 93005; 93306; 94640; 99285; J1815; J2270; Q0163

== ENCOUNTER 2021-08-07 17:35 | Emergency (ER) | payer MEDICARE, MEDICAID ==
[~2021-08-07] VITALS: Ht 165.1 cm; Wt 75.0 kg
[~2021-08-07 17:35] MED LIST changes: -CARV12.545 PO; -CLON-457 PO; -HYDR-4134 PO; -LATA2.5D14 OP; -NAPR275T96 MT; -VENL-179 PO
[2021-08-07 18:45] LABS: BASOPHILS % 0.6 % (0.0-2.0); EOSINOPHILS % 0.5 % (0.0-5.0); HEMATOCRIT. 35.2 % (36.0-48.0); HEMOGLOBIN. 11.1 g/dL (12.0-16.0); MEAN PLATELET VOLUME 8.3 fl (7.4-10.4); MONOCYTES % 6.2 % (2.0-8.0); NEUTROPHILS % 48.7 % (40.0-76.0); PLATELET 213 x1000/uL (130-400); RED BLOOD CELL COUNT 3.95 mill/uL (4.2-5.4); RED CELL DISTRIBUTION WIDTH 17.2 % (11.6-14.6)
[2021-08-07 18:49] LABS: CHLORIDE 114 mEq/L (98-107)
[2021-08-07 20:00] VITALS: BP 183/88
[2021-08-07 20:02] LABS: CLARITY URINE CLEAR (CLEAR); COLOR URINE YELLOW (YELLOW); KETONES URINE NEGATIVE (NEGATIVE); LEUKOCYTE ESTERASE URINE NEGATIVE (NEGATIVE); NITRITE URINE NEGATIVE (NEGATIVE); OCCULT BLOOD URINE NEGATIVE (NEGATIVE); PH URINE 5.5 (4.5-8.0); PROTEIN URINE 2+ (NEGATIVE); SPECIFIC GRAVITY URINE 1.017 (1.005-1.030); UROBILINOGEN URINE 0.2 E.U./dL (0.2-1.0)
[2021-08-07] MEDS ORDERED: FURO-152 PO (21:17)
== END 2021-08-07 23:40 | disposition home or self-care (01) ==
LOC: ER 17:35
DX: I11.0 Hypertensive heart disease with heart failure (principal); I50.9 Heart failure, unspecified; J44.9 Chronic obstructive pulmonary disease, unspecified; E11.9 Type 2 diabetes mellitus without complications; F03.90 Unspecified dementia, unspecified severity, without behavioral disturbance, psychotic disturbance, mood disturbance, and anxiety; F17.210 Nicotine dependence, cigarettes, uncomplicated; Z88.8 Allergy status to other drugs, medicaments and biological substances; Z79.82 Long term (current) use of aspirin
CPT/HCPCS: 36415; 71045; 80053; 81003; 83605; 83880; 84484; 85025; 93005; 99285

== ENCOUNTER → 2021-08-08 | Outpatient (CLI) | payer MEDICARE, MEDICAID ==
[~2021-08-08] MED LIST changes: +FURO-152 PO
== END | disposition home or self-care (01) ==
LOC: RAD 09:54
PROVIDERS: ATTEND Neurological Surgery
DX: M54.2 Cervicalgia (principal)
CPT/HCPCS: 72052

== ENCOUNTER 2021-08-12 09:25 | Inpatient (IN) | payer MEDICARE, MEDICAID ==
[~2021-08-12] VITALS: Ht 162.6 cm; Wt 70.8 kg
[2021-08-12] MEDS ORDERED: HYDROCODONE/ACETAMINOPHEN 5/325MG TABLET PO STA (09:33)
[2021-08-12] MEDS ORDERED: NITROGLYCERIN OINT 1GM/INCH UDPKT TD ONE (09:45)
[2021-08-12] MEDS ORDERED: ASPIRIN 81MG TABLET PO ONE (09:45)
[2021-08-12 10:13] LABS: BASOPHILS % 0.5 % (0.0-2.0); EOSINOPHILS % 0.7 % (0.0-5.0); HEMATOCRIT. 33.2 % (36.0-48.0); HEMOGLOBIN. 10.8 g/dL (12.0-16.0); LYMPHOCYTES % 40.9 % (20.0-50.0); MEAN CORPUSCULAR HEMOGLOBIN 28.2 pg (28.0-32.0); MEAN CORPUSCULAR VOLUME 86.5 fL (81.0-99.0); MEAN PLATELET VOLUME 8.3 fl (7.4-10.4); MONOCYTES % 6.1 % (2.0-8.0); NEUTROPHILS % 51.8 % (40.0-76.0); PLATELET 235 x1000/uL (130-400); RED BLOOD CELL COUNT 3.84 mill/uL (4.2-5.4)
[2021-08-12 10:22] LABS: CHLORIDE 110 mEq/L (98-107)
[2021-08-12] MEDS ORDERED: AZITHROMYCIN 500MG/250ML 250 ML IV ONE (10:45)
[2021-08-12] MEDS ORDERED: CEFTRIAXONE 1 G PREMIX 50 ML IV NR (11:00)
[2021-08-12] MEDS ORDERED: AZITHROMYCIN 250 MG in DEXT 5% WATER 250 ML IV NR (11:00)
[2021-08-12 12:22] LABS: PROTHROMBIN TIME 11.1 sec (9.6-11.0)
[2021-08-12 13:30] LABS: CLARITY URINE CLEAR (CLEAR); COLOR URINE YELLOW (YELLOW); KETONES URINE NEGATIVE (NEGATIVE); LEUKOCYTE ESTERASE URINE NEGATIVE (NEGATIVE); NITRITE URINE NEGATIVE (NEGATIVE); OCCULT BLOOD URINE NEGATIVE (NEGATIVE); PROTEIN URINE NEGATIVE (NEGATIVE); SPECIFIC GRAVITY URINE 1.006 (1.005-1.030); UROBILINOGEN URINE 0.2 E.U./dL (0.2-1.0)
[2021-08-12] MEDS ORDERED: ACETAMINOPHEN 325MG TABLET PO PRN (15:45)
[2021-08-12] MEDS ORDERED: DIPHENHYDRAMINE 50MG/ML VIAL IV PRN (15:45)
[2021-08-12] MEDS ORDERED: MAGNESIUM/ALUMINUM HYDROXIDE/SIMETHICONE 30ML UDC PO PRN (15:45)
[2021-08-12] MEDS ORDERED: CLONIDINE 0.1MG TABLET PO PRN (15:45)
[2021-08-12] MEDS ORDERED: IPRATROPIUM/ALBUTEROL 0.5-3(2.5)MG/3ML NEB HHN PRN (15:45)
[2021-08-12] MEDS ORDERED: DEXTROSE 50% WATER 50ML SYRINGE IV PRN (15:45)
[2021-08-12] MEDS ORDERED: HYDRALAZINE 20MG/ML VIAL IV PRN (15:45)
[2021-08-12] MEDS ORDERED: ONDANSETRON HCL 4MG/2ML INJ IV PRN (15:45)
[2021-08-12] MEDS: BLOOD SUGAR DIAGNOSTIC STRIP TEST SCH ×2 (16:21→20:52)
[2021-08-12] MEDS: DOCUSATE SODIUM 100MG CAPSULE PO SCH (16:35)
[2021-08-12] MEDS: ENOXAPARIN 40MG/0.4ML SYR SUBCUT SCH (16:36)
[2021-08-12] MEDS ORDERED: FUROSEMIDE 40MG/4ML VIAL IVP SCH (17:00)
[2021-08-12] MEDS: INSULIN LISPRO 100 UNITS/ML SUBCUT SCH ×2 (18:20→20:52)
[2021-08-12] MEDS: AMLODIPINE 5MG TABLET PO SCH (21:06)
[2021-08-12] MEDS: ATORVASTATIN CALCIUM 10MG TABLET PO SCH (21:06)
[2021-08-12] MEDS: ACETAMINOPHEN 325MG TABLET PO PRN (21:07)
[2021-08-12] MEDS: SODIUM CHLORIDE 0.9% INJ 3ML FLUSH IVF SCH (21:08)
[2021-08-12] MEDS: OMEPRAZOLE 20MG CAPSULE EXTENDED RELEASE PO SCH (21:55)
[2021-08-12] MEDS: LATANOPROST 0.005% OPHTH DROPS 2.5ML BOTHEYE SCH (21:55)
[2021-08-12] MEDS: HYDRALAZINE HCL 100MG TABLET PO SCH (21:58)
[2021-08-12] MEDS: ZOLPIDEM TARTRATE 5MG TABLET PO PRN (23:12)
[2021-08-13] MEDS: CLONIDINE 0.2MG TABLET PO PRN (04:17)
[2021-08-13 05:56] LABS: CHLORIDE 111 mEq/L (98-107)
[2021-08-13 06:33] LABS: BASOPHILS % 0.4 % (0.0-2.0); EOSINOPHILS % 1.3 % (0.0-5.0); HEMATOCRIT. 32.2 % (36.0-48.0); HEMOGLOBIN. 10.5 g/dL (12.0-16.0); LYMPHOCYTES % 44.3 % (20.0-50.0); MEAN CORPUSCULAR HEMOGLOBIN 28.1 pg (28.0-32.0); MEAN PLATELET VOLUME 8.7 fl (7.4-10.4); MONOCYTES % 7.6 % (2.0-8.0); NEUTROPHILS % 46.4 % (40.0-76.0); PLATELET 235 x1000/uL (130-400); RED BLOOD CELL COUNT 3.74 mill/uL (4.2-5.4); RED CELL DISTRIBUTION WIDTH 16.9 % (11.6-14.6)
[2021-08-13] MEDS: SODIUM CHLORIDE 0.9% INJ 3ML FLUSH IVF SCH ×3 (06:55→21:20)
[2021-08-13] MEDS: INSULIN LISPRO 100 UNITS/ML SUBCUT SCH ×4 (07:00→21:21)
[2021-08-13] MEDS: BLOOD SUGAR DIAGNOSTIC STRIP TEST SCH ×4 (07:06→21:20)
[2021-08-13] MEDS: HYDRALAZINE HCL 100MG TABLET PO SCH ×3 (07:19→21:19)
[2021-08-13] MEDS: OMEPRAZOLE 20MG CAPSULE EXTENDED RELEASE PO SCH ×2 (07:19→21:18)
[2021-08-13] MEDS ORDERED: POTASSIUM CHLORIDE 20MEQ TABLET SR PO SCH (09:00)
[2021-08-13] MEDS: DOCUSATE SODIUM 100MG CAPSULE PO SCH ×2 (10:51→17:00)
[2021-08-13] MEDS: POTASSIUM CHLORIDE 20MEQ TABLET SR PO SCH ×2 (10:51→17:00)
[2021-08-13] MEDS: ACETAMINOPHEN 325MG TABLET PO PRN (10:51)
[2021-08-13] MEDS: AMLODIPINE 5MG TABLET PO SCH ×2 (10:52→21:20)
[2021-08-13 12:00] VITALS: BP 137/54
[2021-08-13] MEDS ORDERED: LORAZEPAM 2MG/ML CPJ IV SCH (14:45)
[2021-08-13] MEDS: ALLOPURINOL 100 MG TABLET PO SCH (15:53)
[2021-08-13] MEDS: VENLAFAXINE HCL 37.5MG SR CAPSULE 24HR PO SCH (15:54)
[2021-08-13 16:00] VITALS: BP 134/57
[2021-08-13] MEDS: FUROSEMIDE 40MG/4ML VIAL IVP SCH (16:49)
[2021-08-13] MEDS: ENOXAPARIN 40MG/0.4ML SYR SUBCUT SCH (17:00)
[2021-08-13 17:11] VITALS: BP 151/75
[2021-08-13 20:00] VITALS: BP 151/50
[2021-08-13] MEDS: LATANOPROST 0.005% OPHTH DROPS 2.5ML BOTHEYE SCH (21:00)
[2021-08-13] MEDS: ATORVASTATIN CALCIUM 10MG TABLET PO SCH (21:19)
[2021-08-13] MEDS: HYDROCODONE/ACETAMINOPHEN 5/325MG TABLET PO PRN (21:19)
[2021-08-14] VITALS: BP 136/66
[2021-08-14] MEDS: SODIUM CHLORIDE 0.9% INJ 3ML FLUSH IVF SCH ×3 (01:20→21:18)
[2021-08-14 04:00] VITALS: BP 135/52
[2021-08-14] MEDS: HYDROCODONE/ACETAMINOPHEN 5/325MG TABLET PO PRN ×3 (04:19→16:36)
[2021-08-14] MEDS: BLOOD SUGAR DIAGNOSTIC STRIP TEST SCH ×4 (06:02→21:00)
[2021-08-14] MEDS: INSULIN LISPRO 100 UNITS/ML SUBCUT SCH ×4 (06:03→21:00)
[2021-08-14] MEDS: HYDRALAZINE HCL 100MG TABLET PO SCH ×3 (06:11→21:18)
[2021-08-14 06:59] LABS: BASOPHILS % 0.5 % (0.0-2.0); EOSINOPHILS % 1.1 % (0.0-5.0); HEMATOCRIT. 34.2 % (36.0-48.0); HEMOGLOBIN. 11.3 g/dL (12.0-16.0); LYMPHOCYTES % 41.4 % (20.0-50.0); MEAN CORPUSCULAR HEMOGLOBIN 28.3 pg (28.0-32.0); MEAN CORPUSCULAR VOLUME 85.5 fL (81.0-99.0); MEAN PLATELET VOLUME 8.5 fl (7.4-10.4); MONOCYTES % 6.7 % (2.0-8.0); NEUTROPHILS % 50.3 % (40.0-76.0); PLATELET 248 x1000/uL (130-400); RED CELL DISTRIBUTION WIDTH 17.2 % (11.6-14.6)
[2021-08-14 07:11] LABS: CHLORIDE 111 mEq/L (98-107)
[2021-08-14 08:00] VITALS: BP 168/83
[2021-08-14] MEDS: FUROSEMIDE 40MG/4ML VIAL IVP SCH (09:04)
[2021-08-14] MEDS: FAMOTIDINE 20MG TABLET PO SCH ×2 (09:05→21:16)
[2021-08-14] MEDS: DOCUSATE SODIUM 100MG CAPSULE PO SCH ×2 (09:05→16:58)
[2021-08-14] MEDS: POTASSIUM CHLORIDE 20MEQ TABLET SR PO SCH ×2 (09:05→16:58)
[2021-08-14] MEDS: AMLODIPINE 5MG TABLET PO SCH ×2 (09:05→21:16)
[2021-08-14] MEDS: ALLOPURINOL 100 MG TABLET PO SCH (09:56)
[2021-08-14] MEDS: VENLAFAXINE HCL 37.5MG SR CAPSULE 24HR PO SCH (09:56)
[2021-08-14] MEDS: CLONIDINE 0.1MG TABLET PO SCH ×3 (10:03→21:18)
[2021-08-14 12:00] VITALS: BP 188/86
[2021-08-14] MEDS: CLONIDINE 0.2MG TABLET PO PRN (12:17)
[2021-08-14 16:00] VITALS: BP 124/68
[2021-08-14] MEDS: ENOXAPARIN 40MG/0.4ML SYR SUBCUT SCH (16:58)
[2021-08-14 20:00] VITALS: BP 124/62
[2021-08-14] MEDS: ATORVASTATIN CALCIUM 10MG TABLET PO SCH (21:16)
[2021-08-14] MEDS: LATANOPROST 0.005% OPHTH DROPS 2.5ML BOTHEYE SCH (21:17)
[2021-08-14] MEDS: ZOLPIDEM TARTRATE 5MG TABLET PO PRN (21:36)
[2021-08-15] VITALS: BP 125/60
[2021-08-15] MEDS: HYDROCODONE/ACETAMINOPHEN 5/325MG TABLET PO PRN (02:03)
[2021-08-15 04:00] VITALS: BP 165/65
[2021-08-15] MEDS: BLOOD SUGAR DIAGNOSTIC STRIP TEST SCH ×2 (06:14→11:40)
[2021-08-15] MEDS: INSULIN LISPRO 100 UNITS/ML SUBCUT SCH ×2 (06:14→11:59)
[2021-08-15] MEDS: SODIUM CHLORIDE 0.9% INJ 3ML FLUSH IVF SCH ×2 (06:16→14:00)
[2021-08-15] MEDS: CLONIDINE 0.1MG TABLET PO SCH ×2 (06:21→14:31)
[2021-08-15] MEDS: HYDRALAZINE HCL 100MG TABLET PO SCH ×2 (06:21→14:30)
[2021-08-15 07:30] LABS: BASOPHILS % 0.4 % (0.0-2.0); EOSINOPHILS % 1.1 % (0.0-5.0); HEMATOCRIT. 34.3 % (36.0-48.0); HEMOGLOBIN. 11.3 g/dL (12.0-16.0); LYMPHOCYTES % 46.1 % (20.0-50.0); MEAN CORPUSCULAR HEMOGLOBIN 28.1 pg (28.0-32.0); MEAN CORPUSCULAR VOLUME 85.6 fL (81.0-99.0); MEAN PLATELET VOLUME 8.7 fl (7.4-10.4); MONOCYTES % 7.1 % (2.0-8.0); NEUTROPHILS % 45.3 % (40.0-76.0); PLATELET 257 x1000/uL (130-400); RED CELL DISTRIBUTION WIDTH 16.7 % (11.6-14.6)
[2021-08-15 07:44] LABS: CHLORIDE 108 mEq/L (98-107)
[2021-08-15 08:00] VITALS: BP 124/66
[2021-08-15] MEDS: FUROSEMIDE 40MG/4ML VIAL IVP SCH (09:12)
[2021-08-15] MEDS: AMLODIPINE 5MG TABLET PO SCH (09:12)
[2021-08-15] MEDS: FAMOTIDINE 20MG TABLET PO SCH (09:12)
[2021-08-15] MEDS: DOCUSATE SODIUM 100MG CAPSULE PO SCH (09:12)
[2021-08-15] MEDS: POTASSIUM CHLORIDE 20MEQ TABLET SR PO SCH (09:12)
[2021-08-15] MEDS: ALLOPURINOL 100 MG TABLET PO SCH (09:13)
[2021-08-15] MEDS: VENLAFAXINE HCL 37.5MG SR CAPSULE 24HR PO SCH (09:13)
[2021-08-15 12:00] VITALS: BP 159/69
[2021-08-15 16:00] VITALS: BP 153/66
[2021-08-15 16:23] VITALS: BP 153/66
== END 2021-08-15 18:40 | disposition home or self-care (01) | DRG 194 ==
LOC: ER 09:25 → EDBEDREQTM 10:39 → EDBEDREQ 10:39 → MICUSO 11:49 → EDBEDREQTM 12:06 → EDBEDREQ 12:06 → 7EST 08-13 08:47
PROVIDERS: ADMIT Internal Medicine; ATTEND Internal Medicine
DX: I11.0 Hypertensive heart disease with heart failure (principal); J96.01 Acute respiratory failure with hypoxia; J98.51 Mediastinitis; J18.9 Pneumonia, unspecified organism; I31.3 Pericardial effusion (noninflammatory); J44.0 Chronic obstructive pulmonary disease with (acute) lower respiratory infection; I50.33 Acute on chronic diastolic (congestive) heart failure; E11.40 Type 2 diabetes mellitus with diabetic neuropathy, unspecified; X58.XXXA Exposure to other specified factors, initial encounter; E78.5 Hyperlipidemia, unspecified; F03.90 Unspecified dementia, unspecified severity, without behavioral disturbance, psychotic disturbance, mood disturbance, and anxiety; F41.1 Generalized anxiety disorder; F32.A Depression, unspecified; Z20.822 Contact with and (suspected) exposure to COVID-19; K21.9 Gastro-esophageal reflux disease without esophagitis; S46.912A Strain of unspecified muscle, fascia and tendon at shoulder and upper arm level, left arm, initial encounter; M48.02 Spinal stenosis, cervical region; Z86.73 Personal history of transient ischemic attack (TIA), and cerebral infarction without residual deficits; Z90.710 Acquired absence of both cervix and uterus; Z88.8 Allergy status to other drugs, medicaments and biological substances; Z79.84 Long term (current) use of oral hypoglycemic drugs; Z79.899 Other long term (current) drug therapy; Z79.82 Long term (current) use of aspirin; Y93.89 Activity, other specified; Y92.89 Other specified places as the place of occurrence of the external cause; Y99.8 Other external cause status
CPT/HCPCS: 36415; 71045; 72141; 73221; 80048; 80053; 81003; 82962; 83735; 83880; 84484; 85025; 87426; 93005; 93970; 99285; J0456; J0696; J1200; J1650; J1815; J1940; J2060; J7060

== ENCOUNTER 2021-09-29 11:11 | Inpatient (IN) | payer MEDICARE, MEDICAID ==
[~2021-09-29] VITALS: Ht 162.6 cm; Wt 70.8 kg
[2021-09-29] MEDS ORDERED: METHYLPREDNISOLONE SOD SUCC 125 MG/2 ML VIAL IV STA (11:32)
[2021-09-29] MEDS ORDERED: IPRATROPIUM BROMIDE (0.02%) 0.5MG/2.5ML NEB HHN STA (11:32)
[2021-09-29] MEDS ORDERED: MAGNESIUM 2 G PREMIX 50 ML IV ONE (11:45)
[2021-09-29] MEDS: ALBUTEROL (0.083%) 2.5MG/3ML NEB HHN SCH (11:56)
[2021-09-29 11:57] LABS: BASOPHILS % 0.6 % (0.0-2.0); EOSINOPHILS % 0.8 % (0.0-5.0); HEMATOCRIT. 37.7 % (36.0-48.0); MEAN CORPUSCULAR HEMOGLOBIN 28.2 pg (28.0-32.0); MEAN CORPUSCULAR VOLUME 88.9 fL (81.0-99.0); MEAN PLATELET VOLUME 8.2 fl (7.4-10.4); NEUTROPHILS % 50.6 % (40.0-76.0); PLATELET 223 x1000/uL (130-400); RED BLOOD CELL COUNT 4.24 mill/uL (4.2-5.4); RED CELL DISTRIBUTION WIDTH 16.8 % (11.6-14.6)
[2021-09-29 12:03] LABS: CHLORIDE 107 mEq/L (98-107)
[2021-09-29 12:51] LABS: CLARITY URINE CLEAR (CLEAR); COLOR URINE YELLOW (YELLOW); KETONES URINE NEGATIVE (NEGATIVE); LEUKOCYTE ESTERASE URINE NEGATIVE (NEGATIVE); NITRITE URINE NEGATIVE (NEGATIVE); OCCULT BLOOD URINE NEGATIVE (NEGATIVE); PROTEIN URINE NEGATIVE (NEGATIVE); SPECIFIC GRAVITY URINE 1.005 (1.005-1.030); UROBILINOGEN URINE 0.2 E.U./dL (0.2-1.0)
[2021-09-29] MEDS ORDERED: MAGNESIUM/ALUMINUM HYDROXIDE/SIMETHICONE 30ML UDC PO PRN (16:45)
[2021-09-29] MEDS ORDERED: GUAIFENESIN 200MG/10ML SUGAR FREE UDC PO PRN (16:45)
[2021-09-29] MEDS ORDERED: DEXTROSE 50% WATER 50ML SYRINGE IV PRN (16:45)
[2021-09-29] MEDS ORDERED: ONDANSETRON HCL 4MG/2ML INJ IV PRN (16:45)
[2021-09-29] MEDS ORDERED: IPRATROPIUM/ALBUTEROL 0.5-3(2.5)MG/3ML NEB HHN PRN (16:45)
[2021-09-29] MEDS ORDERED: ACETAMINOPHEN 325MG TABLET PO PRN (16:45)
[2021-09-29] MEDS ORDERED: LORAZEPAM 0.5MG TABLET PO PRN (16:45)
[2021-09-29] MEDS ORDERED: MAGNESIUM HYDROXIDE 400MG/5ML 30ML UDC PO PRN (16:45)
[2021-09-29] MEDS ORDERED: CLONIDINE 0.1MG TABLET PO PRN (16:45)
[2021-09-29] MEDS: ACETAMINOPHEN 325MG TABLET PO PRN (17:14)
[2021-09-29] MEDS: CLONIDINE 0.1MG TABLET PO SCH (17:15)
[2021-09-29] MEDS: DIPHENHYDRAMINE 50MG/ML VIAL IV PRN ×2 (17:15→23:50)
[2021-09-29] MEDS: CARVEDILOL 12.5MG TABLET PO SCH (17:15)
[2021-09-29] MEDS: ENOXAPARIN 40MG/0.4ML SYR SUBCUT SCH (17:32)
[2021-09-29] MEDS: BLOOD SUGAR DIAGNOSTIC STRIP TEST SCH ×2 (17:37→21:00)
[2021-09-29] MEDS: INSULIN LISPRO 100 UNITS/ML SUBCUT SCH ×2 (18:07→21:00)
[2021-09-29 20:55] VITALS: BP 111/50
[2021-09-29] MEDS ORDERED: CLONIDINE 0.3MG TABLET PO SCH (22:00)
[2021-09-29] MEDS ORDERED: HYDRALAZINE HCL 100MG TABLET PO SCH (22:00)
[2021-09-29 22:26] VITALS: BP 111/50
[2021-09-29] MEDS: OMEPRAZOLE 20MG CAPSULE EXTENDED RELEASE PO SCH (23:41)
[2021-09-29] MEDS: ATORVASTATIN CALCIUM 10MG TABLET PO SCH (23:41)
[2021-09-29] MEDS: AMLODIPINE 5MG TABLET PO SCH (23:41)
[2021-09-29] MEDS: SODIUM CHLORIDE 0.9% INJ 3ML FLUSH IVF SCH (23:42)
[2021-09-29] MEDS: HYDRALAZINE HCL 100MG TABLET PO SCH (23:42)
[2021-09-30] VITALS: BP 132/58
[2021-09-30 04:00] VITALS: BP 131/55
[2021-09-30] MEDS: HYDRALAZINE HCL 100MG TABLET PO SCH (05:06)
[2021-09-30] MEDS: SODIUM CHLORIDE 0.9% INJ 3ML FLUSH IVF SCH ×3 (05:06→21:29)
[2021-09-30] MEDS: BLOOD SUGAR DIAGNOSTIC STRIP TEST SCH ×4 (07:45→21:00)
[2021-09-30] MEDS: OMEPRAZOLE 20MG CAPSULE EXTENDED RELEASE PO SCH (07:49)
[2021-09-30] MEDS: INSULIN LISPRO 100 UNITS/ML SUBCUT SCH ×4 (07:50→21:00)
[2021-09-30] MEDS ORDERED: VENLAFAXINE HCL 37.5MG SR CAPSULE 24HR PO SCH (09:00)
[2021-09-30] MEDS ORDERED: FUROSEMIDE 40MG TABLET PO SCH (09:00)
[2021-09-30] MEDS: CARVEDILOL 12.5MG TABLET PO SCH ×2 (09:49→17:08)
[2021-09-30] MEDS: AMLODIPINE 5MG TABLET PO SCH ×2 (09:49→21:29)
[2021-09-30] MEDS: VENLAFAXINE HCL 37.5MG SR CAPSULE 24HR PO SCH (09:49)
[2021-09-30] MEDS: CLONIDINE 0.1MG TABLET PO SCH ×2 (09:50→17:09)
[2021-09-30] MEDS: POTASSIUM CHLORIDE 20MEQ TABLET SR PO SCH (09:50)
[2021-09-30] MEDS: ALLOPURINOL 100 MG TABLET PO SCH (09:50)
[2021-09-30] MEDS: ASPIRIN 81MG EC TABLET PO SCH (10:00)
[2021-09-30 12:00] VITALS: BP 135/54
[2021-09-30] MEDS: ACETAMINOPHEN 325MG TABLET PO PRN ×2 (13:32→21:46)
[2021-09-30] MEDS: HYDRALAZINE HCL 25MG TABLET PO SCH ×2 (14:41→21:29)
[2021-09-30 16:00] VITALS: BP 129/48
[2021-09-30] MEDS: FUROSEMIDE 40MG/4ML VIAL IVP SCH (16:12)
[2021-09-30] MEDS: ENOXAPARIN 40MG/0.4ML SYR SUBCUT SCH (17:10)
[2021-09-30] MEDS ORDERED: *PATIENT'S OWN MEDICATION STORAGE XX SCH (20:00)
[2021-09-30 20:24] VITALS: BP 120/43
[2021-09-30] MEDS: ATORVASTATIN CALCIUM 10MG TABLET PO SCH (21:29)
[2021-09-30] MEDS: ZOLPIDEM TARTRATE 5MG TABLET PO PRN (21:45)
[2021-10-01 00:40] VITALS: BP 115/52
[2021-10-01] MEDS: DIPHENHYDRAMINE 50MG/ML VIAL IV PRN (02:44)
[2021-10-01] MEDS: ACETAMINOPHEN 325MG TABLET PO PRN (02:44)
[2021-10-01 04:00] VITALS: BP 142/60
[2021-10-01] MEDS: HYDRALAZINE HCL 25MG TABLET PO SCH ×3 (05:57→21:58)
[2021-10-01] MEDS: SODIUM CHLORIDE 0.9% INJ 3ML FLUSH IVF SCH ×3 (05:58→21:58)
[2021-10-01] MEDS: INSULIN LISPRO 100 UNITS/ML SUBCUT SCH ×4 (07:09→21:00)
[2021-10-01] MEDS: BLOOD SUGAR DIAGNOSTIC STRIP TEST SCH ×4 (07:09→21:56)
[2021-10-01 08:00] VITALS: BP 136/62
[2021-10-01] MEDS: ALLOPURINOL 100 MG TABLET PO SCH (11:01)
[2021-10-01] MEDS: POTASSIUM CHLORIDE 20MEQ TABLET SR PO SCH (11:01)
[2021-10-01] MEDS: VENLAFAXINE HCL 37.5MG SR CAPSULE 24HR PO SCH (11:01)
[2021-10-01] MEDS: ASPIRIN 81MG EC TABLET PO SCH (11:01)
[2021-10-01] MEDS: CARVEDILOL 12.5MG TABLET PO SCH ×2 (11:01→17:00)
[2021-10-01] MEDS: FUROSEMIDE 40MG/4ML VIAL IVP SCH ×2 (11:02→17:00)
[2021-10-01] MEDS: AMLODIPINE 5MG TABLET PO SCH ×2 (11:02→21:57)
[2021-10-01] MEDS: FAMOTIDINE 20MG TABLET PO SCH (11:03)
[2021-10-01] MEDS: CLONIDINE 0.1MG TABLET PO SCH ×2 (11:04→17:00)
[2021-10-01 12:00] VITALS: BP 159/67
[2021-10-01 16:00] VITALS: BP 144/56
[2021-10-01 16:26] LABS: BASOPHILS % 0.6 % (0.0-2.0); EOSINOPHILS % 1.4 % (0.0-5.0); HEMATOCRIT. 35.3 % (36.0-48.0); HEMOGLOBIN. 11.6 g/dL (12.0-16.0); LYMPHOCYTES % 33.4 % (20.0-50.0); MEAN CORPUSCULAR HEMOGLOBIN 28.3 pg (28.0-32.0); MEAN CORPUSCULAR VOLUME 86.4 fL (81.0-99.0); MEAN PLATELET VOLUME 8.4 fl (7.4-10.4); MONOCYTES % 6.4 % (2.0-8.0); NEUTROPHILS % 58.2 % (40.0-76.0); PLATELET 217 x1000/uL (130-400); RED BLOOD CELL COUNT 4.09 mill/uL (4.2-5.4); RED CELL DISTRIBUTION WIDTH 16.4 % (11.6-14.6)
[2021-10-01] MEDS: ENOXAPARIN 40MG/0.4ML SYR SUBCUT SCH (17:00)
[2021-10-01 20:00] VITALS: BP 169/69
[2021-10-01] MEDS: ATORVASTATIN CALCIUM 10MG TABLET PO SCH (21:57)
[2021-10-01] MEDS: ZOLPIDEM TARTRATE 5MG TABLET PO PRN (22:15)
[2021-10-02] VITALS: BP 133/48
[2021-10-02] MEDS: ACETAMINOPHEN 325MG TABLET PO PRN (02:36)
[2021-10-02 04:00] VITALS: BP 147/70
[2021-10-02] MEDS: INSULIN LISPRO 100 UNITS/ML SUBCUT SCH ×2 (06:03→13:10)
[2021-10-02] MEDS: BLOOD SUGAR DIAGNOSTIC STRIP TEST SCH ×2 (06:03→12:40)
[2021-10-02] MEDS: HYDRALAZINE HCL 25MG TABLET PO SCH ×2 (06:04→14:00)
[2021-10-02] MEDS: SODIUM CHLORIDE 0.9% INJ 3ML FLUSH IVF SCH (06:04)
[2021-10-02 07:04] LABS: BASOPHILS % 0.6 % (0.0-2.0); EOSINOPHILS % 1.3 % (0.0-5.0); HEMATOCRIT. 35.4 % (36.0-48.0); HEMOGLOBIN. 11.5 g/dL (12.0-16.0); LYMPHOCYTES % 43.3 % (20.0-50.0); MEAN CORPUSCULAR HEMOGLOBIN 28.2 pg (28.0-32.0); MEAN CORPUSCULAR VOLUME 86.8 fL (81.0-99.0); MONOCYTES % 7.3 % (2.0-8.0); NEUTROPHILS % 47.5 % (40.0-76.0); PLATELET 215 x1000/uL (130-400); RED BLOOD CELL COUNT 4.08 mill/uL (4.2-5.4); RED CELL DISTRIBUTION WIDTH 16.7 % (11.6-14.6)
[2021-10-02 07:33] LABS: CHLORIDE 109 mEq/L (98-107)
[2021-10-02 08:00] VITALS: BP 142/62
[2021-10-02] MEDS: VENLAFAXINE HCL 37.5MG SR CAPSULE 24HR PO SCH (10:34)
[2021-10-02] MEDS: ALLOPURINOL 100 MG TABLET PO SCH (10:34)
[2021-10-02] MEDS: CLONIDINE 0.1MG TABLET PO SCH (10:34)
[2021-10-02] MEDS: POTASSIUM CHLORIDE 20MEQ TABLET SR PO SCH (10:34)
[2021-10-02] MEDS: CARVEDILOL 12.5MG TABLET PO SCH (10:34)
[2021-10-02] MEDS: FAMOTIDINE 20MG TABLET PO SCH (10:35)
[2021-10-02] MEDS: ASPIRIN 81MG EC TABLET PO SCH (10:35)
[2021-10-02] MEDS: AMLODIPINE 5MG TABLET PO SCH (10:35)
[2021-10-02] MEDS: FUROSEMIDE 40MG/4ML VIAL IVP SCH (10:38)
[2021-10-02 12:00] VITALS: BP 106/64
[2021-10-02 14:23] VITALS: BP 106/64
[2021-10-02] MEDS ORDERED: FUROSEMIDE 40MG TABLET PO SCH (21:00)
== END 2021-10-02 15:57 | disposition home or self-care (01) | DRG 52 ==
LOC: ER 11:11 → 7WST 15:18 → EDBEDREQTM 15:23 → EDBEDREQ 15:23 → ENRESERV 22:41
PROVIDERS: ADMIT Internal Medicine; ATTEND Internal Medicine
DX: G93.41 Metabolic encephalopathy (principal); I31.3 Pericardial effusion (noninflammatory); E11.40 Type 2 diabetes mellitus with diabetic neuropathy, unspecified; R47.1 Dysarthria and anarthria; I11.0 Hypertensive heart disease with heart failure; I50.32 Chronic diastolic (congestive) heart failure; F41.1 Generalized anxiety disorder; F32.A Depression, unspecified; E78.5 Hyperlipidemia, unspecified; J44.9 Chronic obstructive pulmonary disease, unspecified; K21.9 Gastro-esophageal reflux disease without esophagitis; Z79.4 Long term (current) use of insulin; Z86.73 Personal history of transient ischemic attack (TIA), and cerebral infarction without residual deficits; Z79.899 Other long term (current) drug therapy; Z87.01 Personal history of pneumonia (recurrent); Z90.710 Acquired absence of both cervix and uterus; Z88.8 Allergy status to other drugs, medicaments and biological substances; Z90.49 Acquired absence of other specified parts of digestive tract; Z79.82 Long term (current) use of aspirin; Z79.84 Long term (current) use of oral hypoglycemic drugs
CPT/HCPCS: 36415; 71045; 80048; 80053; 81003; 82962; 83036; 83880; 84484; 85025; 93005; 93306; 94640; 99285; C1893; J1200; J1650; J1815; J1940; J2930; J3475

== ENCOUNTER 2021-11-10 08:53 | Emergency (ER) | payer MEDICARE, MEDICAID ==
[~2021-11-10] VITALS: Ht 162.6 cm; Wt 66.0 kg
[2021-11-10 11:28] LABS: BASOPHILS % 0.6 % (0.0-2.0); EOSINOPHILS % 0.7 % (0.0-5.0); HEMATOCRIT. 40.3 % (36.0-48.0); HEMOGLOBIN. 12.9 g/dL (12.0-16.0); LYMPHOCYTES % 39.9 % (20.0-50.0); MEAN CORPUSCULAR VOLUME 87.9 fL (81.0-99.0); MEAN PLATELET VOLUME 8.3 fl (7.4-10.4); MONOCYTES % 6.5 % (2.0-8.0); NEUTROPHILS % 52.3 % (40.0-76.0); PLATELET 211 x1000/uL (130-400); RED BLOOD CELL COUNT 4.59 mill/uL (4.2-5.4); RED CELL DISTRIBUTION WIDTH 17.6 % (11.6-14.6)
[2021-11-10 11:35] LABS: CHLORIDE 107 mEq/L (98-107)
[2021-11-10] MEDS ORDERED: HYDROCODONE/ACETAMINOPHEN 5/325MG TABLET PO ONE (13:00)
[2021-11-10 15:31] VITALS: BP 179/71
== END 2021-11-10 15:31 | disposition home or self-care (01) ==
LOC: ER 08:53
DX: M25.512 Pain in left shoulder (principal); G89.29 Other chronic pain; R07.89 Other chest pain; J44.9 Chronic obstructive pulmonary disease, unspecified; E11.9 Type 2 diabetes mellitus without complications; I11.0 Hypertensive heart disease with heart failure; I50.9 Heart failure, unspecified; Z90.710 Acquired absence of both cervix and uterus; Z79.82 Long term (current) use of aspirin; Z88.8 Allergy status to other drugs, medicaments and biological substances
CPT/HCPCS: 36415; 71045; 80053; 83880; 84484; 85025; 93005; 99285

== ENCOUNTER 2022-06-06 12:29 | Inpatient (IN) | payer MEDICARE, MEDICAID ==
[~2022-06-06] VITALS: Ht 162.6 cm; Wt 70.8 kg
[~2022-06-06 12:29] MED LIST changes: +ALBU6.7H3 INH; -ALBU6.7H9 INH
[2022-06-06] MEDS ORDERED: ALBUTEROL (0.5%) 2.5MG/0.5ML NEB HHN ONE (13:15)
[2022-06-06] MEDS ORDERED: IPRATROPIUM BROMIDE (0.02%) 0.5MG/2.5ML NEB HHN ONE (13:15)
[2022-06-06] MEDS ORDERED: METHYLPREDNISOLONE SOD SUCC 125 MG/2 ML VIAL IV ONE (13:15)
[2022-06-06 13:59] LABS: BASOPHILS % 0.5 % (0.0-2.0); CHLORIDE 105 mEq/L (98-107); EOSINOPHILS % 0.7 % (0.0-5.0); HEMATOCRIT. 41.5 % (36.0-48.0); HEMOGLOBIN. 13.5 g/dL (12.0-16.0); LYMPHOCYTES % 44.3 % (20.0-50.0); MEAN CORPUSCULAR HEMOGLOBIN 28.6 pg (28.0-32.0); MEAN CORPUSCULAR VOLUME 87.6 fL (81.0-99.0); MEAN PLATELET VOLUME 8.5 fl (7.4-10.4); MONOCYTES % 8.2 % (2.0-8.0); NEUTROPHILS % 46.3 % (40.0-76.0); PLATELET 205 x1000/uL (130-400); RED BLOOD CELL COUNT 4.74 mill/uL (4.2-5.4); RED CELL DISTRIBUTION WIDTH 15.1 % (11.6-14.6)
[2022-06-06 14:15] LABS: ETHANOL BLOOD < 10 mg/dL
[2022-06-06] MEDS ORDERED: ALBUTEROL (0.5%) 2.5MG/0.5ML NEB HHN NR (18:00)
[2022-06-06] MEDS ORDERED: IPRATROPIUM BROMIDE (0.02%) 0.5MG/2.5ML NEB HHN NR (18:00)
[2022-06-06] MEDS ORDERED: METHYLPREDNISOLONE SOD SUCC 125 MG/2 ML VIAL IV NR (18:00)
[2022-06-06] MEDS ORDERED: MAGNESIUM/ALUMINUM HYDROXIDE/SIMETHICONE 30ML UDC PO PRN (18:15)
[2022-06-06] MEDS ORDERED: IPRATROPIUM/ALBUTEROL 0.5-3(2.5)MG/3ML NEB HHN PRN (18:15)
[2022-06-06] MEDS ORDERED: MAGNESIUM HYDROXIDE 400MG/5ML 30ML UDC PO PRN (18:15)
[2022-06-06] MEDS ORDERED: ZOLPIDEM TARTRATE 5MG TABLET PO PRN (18:15)
[2022-06-06 18:26] LABS: *AMPHETAMINES SCREEN URINE NEGATIVE (NEGATIVE); *BARBITURATES SCREEN URINE NEGATIVE (NEGATIVE); *BENZODIAZEPINES SCREEN URINE NEGATIVE (NEGATIVE); *COCAINE SCREEN URINE NEGATIVE (NEGATIVE); CANNABINOID URINE SCREEN NEGATIVE (NEGATIVE); METHADONE URINE SCREEN NEGATIVE (NEGATIVE); OPIATES URINE SCREEN NEGATIVE (NEGATIVE); PHENCYCLIDINE URINE SCREEN NEGATIVE (NEGATIVE)
[2022-06-06] MEDS ORDERED: DIPHENHYDRAMINE 50MG/ML VIAL IV PRN (18:30)
[2022-06-06] MEDS ORDERED: ACETAMINOPHEN 325MG TABLET PO PRN ×2 (18:30)
[2022-06-06] MEDS ORDERED: HYDRALAZINE 20MG/ML VIAL IV PRN (18:30)
[2022-06-06] MEDS ORDERED: CLONIDINE 0.1MG TABLET PO PRN (18:30)
[2022-06-06] MEDS ORDERED: DEXTROSE 50% WATER 50ML SYRINGE IV PRN (18:30)
[2022-06-06] MEDS ORDERED: ONDANSETRON HCL 4MG/2ML INJ IV PRN (18:30)
[2022-06-06] MEDS: CLONIDINE 0.1MG TABLET PO SCH (19:05)
[2022-06-06] MEDS: INSULIN LISPRO 100 UNITS/ML SUBCUT SCH (19:44)
[2022-06-06] MEDS: BLOOD SUGAR DIAGNOSTIC STRIP TEST SCH (21:00)
[2022-06-06] MEDS: CARVEDILOL 12.5MG TABLET PO SCH (21:00)
[2022-06-06] MEDS: ATORVASTATIN CALCIUM 10MG TABLET PO SCH (22:46)
[2022-06-06] MEDS: SODIUM CHLORIDE 0.9% INJ 3ML FLUSH IVF SCH (22:47)
[2022-06-06] MEDS: OMEPRAZOLE 20MG CAPSULE EXTENDED RELEASE PO SCH (22:47)
[2022-06-06] MEDS: AMLODIPINE 5MG TABLET PO SCH (22:47)
[2022-06-07] MEDS: HYDRALAZINE HCL 50MG TABLET PO SCH ×4 (01:06→21:07)
[2022-06-07] MEDS: SODIUM CHLORIDE 0.9% INJ 3ML FLUSH IVF SCH ×3 (06:00→21:11)
[2022-06-07] MEDS: BLOOD SUGAR DIAGNOSTIC STRIP TEST SCH ×4 (06:30→21:00)
[2022-06-07] MEDS: OMEPRAZOLE 20MG CAPSULE EXTENDED RELEASE PO SCH ×2 (06:30→21:08)
[2022-06-07 08:53] VITALS: BP 157/72
[2022-06-07] MEDS: VENLAFAXINE HCL 37.5MG SR CAPSULE 24HR PO SCH (09:00)
[2022-06-07] MEDS: FUROSEMIDE 40MG/4ML VIAL IVP SCH (10:33)
[2022-06-07] MEDS: ALLOPURINOL 100 MG TABLET PO SCH (10:33)
[2022-06-07] MEDS: AMLODIPINE 5MG TABLET PO SCH ×2 (10:35→21:06)
[2022-06-07] MEDS: POTASSIUM CHLORIDE 20MEQ TABLET SR PO SCH (10:35)
[2022-06-07] MEDS: CARVEDILOL 12.5MG TABLET PO SCH ×2 (10:36→21:05)
[2022-06-07] MEDS: ASPIRIN 81MG EC TABLET PO SCH (10:36)
[2022-06-07 12:36] VITALS: BP 130/64
[2022-06-07] MEDS: INSULIN LISPRO 100 UNITS/ML SUBCUT SCH ×4 (13:10→21:09)
[2022-06-07] MEDS ORDERED: TRAMADOL 50MG TABLET PO PRN (15:30)
[2022-06-07] MEDS ORDERED: BENZONATATE 100MG CAPSULE PO PRN (15:30)
[2022-06-07] MEDS ORDERED: NALOXONE HCL 0.4MG/ML VIAL IV PRN (15:45)
[2022-06-07] MEDS ORDERED: ALBUTEROL (0.083%) 2.5MG/3ML NEB HHN PRN (15:45)
[2022-06-07] MEDS ORDERED: IPRATROPIUM BROMIDE (0.02%) 0.5MG/2.5ML NEB HHN PRN (15:45)
[2022-06-07 16:00] VITALS: BP 128/55
[2022-06-07] MEDS ORDERED: PROMETHAZINE/DEXTROMETHORPHAN 6.25-15MG/5ML BOTTLE 120ML PO PRN (17:00)
[2022-06-07] MEDS: CLONIDINE 0.1MG TABLET PO SCH (17:37)
[2022-06-07 20:00] VITALS: BP 117/60
[2022-06-07] MEDS: ATORVASTATIN CALCIUM 10MG TABLET PO SCH (21:06)
[2022-06-07 23:59] VITALS: BP 137/60
[2022-06-08 04:00] VITALS: BP 136/56
[2022-06-08] MEDS: SODIUM CHLORIDE 0.9% INJ 3ML FLUSH IVF SCH ×2 (05:45→15:54)
[2022-06-08] MEDS: HYDRALAZINE HCL 50MG TABLET PO SCH ×2 (05:45→15:53)
[2022-06-08] MEDS: CLONIDINE 0.1MG TABLET PO SCH (05:46)
[2022-06-08] MEDS: BLOOD SUGAR DIAGNOSTIC STRIP TEST SCH ×2 (07:40→12:40)
[2022-06-08 08:00] VITALS: BP 127/82
[2022-06-08] MEDS: OMEPRAZOLE 20MG CAPSULE EXTENDED RELEASE PO SCH (08:00)
[2022-06-08] MEDS: INSULIN LISPRO 100 UNITS/ML SUBCUT SCH ×2 (08:01→13:10)
[2022-06-08] MEDS: VENLAFAXINE HCL 37.5MG SR CAPSULE 24HR PO SCH (09:00)
[2022-06-08] MEDS: ALLOPURINOL 100 MG TABLET PO SCH (09:49)
[2022-06-08] MEDS: CARVEDILOL 12.5MG TABLET PO SCH (09:51)
[2022-06-08] MEDS: POTASSIUM CHLORIDE 20MEQ TABLET SR PO SCH (09:53)
[2022-06-08] MEDS: FUROSEMIDE 40MG/4ML VIAL IVP SCH (09:53)
[2022-06-08] MEDS: AMLODIPINE 5MG TABLET PO SCH (09:53)
[2022-06-08] MEDS: ASPIRIN 81MG EC TABLET PO SCH (09:53)
[2022-06-08 12:00] VITALS: BP 126/64
[2022-06-08 15:02] VITALS: BP 126/64
[2022-06-08 16:00] VITALS: BP 157/77
[2022-06-09] MEDS ORDERED: FAMOTIDINE 20MG TABLET PO SCH (09:00)
== END 2022-06-08 21:57 | disposition home or self-care (01) | DRG 194 ==
LOC: ER 12:41 → MICUSO 16:36 → EDBEDREQ 16:56 → EDBEDREQTM 16:56 → 7WST 06-07 09:16 → UNDODISIN 06-08 17:30
PROVIDERS: ADMIT Internal Medicine; ATTEND Internal Medicine
DX: I11.0 Hypertensive heart disease with heart failure (principal); J96.01 Acute respiratory failure with hypoxia; I50.33 Acute on chronic diastolic (congestive) heart failure; E11.40 Type 2 diabetes mellitus with diabetic neuropathy, unspecified; F32.A Depression, unspecified; F41.1 Generalized anxiety disorder; M10.9 Gout, unspecified; K21.9 Gastro-esophageal reflux disease without esophagitis; Z20.822 Contact with and (suspected) exposure to COVID-19; M19.90 Unspecified osteoarthritis, unspecified site; Z88.8 Allergy status to other drugs, medicaments and biological substances; Z90.710 Acquired absence of both cervix and uterus; Z86.73 Personal history of transient ischemic attack (TIA), and cerebral infarction without residual deficits; Z79.899 Other long term (current) drug therapy; Z82.49 Family history of ischemic heart disease and other diseases of the circulatory system; Z83.3 Family history of diabetes mellitus
CPT/HCPCS: 36415; 71045; 80053; 80305; 80320; 82962; 83880; 84484; 85025; 87426; 93005; 94640; J1815; J1940; J2930; G0480

== ENCOUNTER 2022-07-14 09:52 | Emergency (ER) | payer MEDICARE, MEDICAID ==
[~2022-07-14] VITALS: Ht 157.5 cm; Wt 81.0 kg
[2022-07-14 10:36] LABS: BASOPHILS % 0.5 % (0.0-2.0); EOSINOPHILS % 0.4 % (0.0-5.0); HEMATOCRIT. 38.6 % (36.0-48.0); HEMOGLOBIN. 12.6 g/dL (12.0-16.0); MEAN CORPUSCULAR HEMOGLOBIN 28.6 pg (28.0-32.0); MEAN CORPUSCULAR VOLUME 87.9 fL (81.0-99.0); MEAN PLATELET VOLUME 8.2 fl (7.4-10.4); MONOCYTES % 7.6 % (2.0-8.0); NEUTROPHILS % 47.5 % (40.0-76.0); PLATELET 232 x1000/uL (130-400); RED BLOOD CELL COUNT 4.39 mill/uL (4.2-5.4); RED CELL DISTRIBUTION WIDTH 15.7 % (11.6-14.6)
[2022-07-14] MEDS ORDERED: IPRATROPIUM BROMIDE (0.02%) 0.5MG/2.5ML NEB HHN STA (10:39)
[2022-07-14] MEDS ORDERED: FUROSEMIDE 40MG/4ML VIAL IV ONE (10:45)
[2022-07-14 10:46] LABS: CHLORIDE 109 mEq/L (98-107)
[2022-07-14] MEDS: ALBUTEROL (0.083%) 2.5MG/3ML NEB HHN SCH ×3 (11:16→12:19)
[2022-07-14 14:05] VITALS: BP 170/60
== END 2022-07-14 14:05 | disposition home or self-care (01) ==
LOC: ER 10:30
DX: I11.0 Hypertensive heart disease with heart failure (principal); I50.9 Heart failure, unspecified; E11.9 Type 2 diabetes mellitus without complications; Z86.73 Personal history of transient ischemic attack (TIA), and cerebral infarction without residual deficits; Z79.899 Other long term (current) drug therapy
CPT/HCPCS: 36415; 71045; 80053; 83880; 84484; 85025; 93005; 94644; 99285; J1940; Z7610

== ENCOUNTER 2022-07-21 09:40 | Inpatient (IN) | payer MEDICARE, MEDICAID ==
[~2022-07-21] VITALS: Ht 162.6 cm; Wt 71.4 kg
[2022-07-21 11:09] LABS: BASOPHILS % 0.4 % (0.0-2.0); EOSINOPHILS % 0.5 % (0.0-5.0); HEMATOCRIT. 37.7 % (36.0-48.0); HEMOGLOBIN. 12.3 g/dL (12.0-16.0); LYMPHOCYTES % 46.3 % (20.0-50.0); MEAN CORPUSCULAR HEMOGLOBIN 28.5 pg (28.0-32.0); MEAN CORPUSCULAR VOLUME 87.6 fL (81.0-99.0); MEAN PLATELET VOLUME 8.2 fl (7.4-10.4); NEUTROPHILS % 45.8 % (40.0-76.0); PLATELET 215 x1000/uL (130-400); RED CELL DISTRIBUTION WIDTH 15.6 % (11.6-14.6)
[2022-07-21 11:16] LABS: CHLORIDE 110 mEq/L (98-107)
[2022-07-21] MEDS ORDERED: FUROSEMIDE 40MG/4ML VIAL IVP ONE (11:30)
[2022-07-21] MEDS ORDERED: ACETAMINOPHEN 325MG TABLET PO PRN ×2 (17:45)
[2022-07-21] MEDS ORDERED: DIPHENHYDRAMINE 50MG/ML VIAL IV PRN (17:45)
[2022-07-21] MEDS ORDERED: DEXTROSE 50% WATER 50ML SYRINGE IV PRN (17:45)
[2022-07-21] MEDS ORDERED: CLONIDINE 0.1MG TABLET PO PRN (17:45)
[2022-07-21] MEDS ORDERED: MAGNESIUM/ALUMINUM HYDROXIDE/SIMETHICONE 30ML UDC PO PRN (17:45)
[2022-07-21] MEDS ORDERED: IPRATROPIUM/ALBUTEROL 0.5-3(2.5)MG/3ML NEB HHN PRN (17:45)
[2022-07-21] MEDS ORDERED: GUAIFENESIN 200MG/10ML SUGAR FREE UDC PO PRN (17:45)
[2022-07-21] MEDS ORDERED: ONDANSETRON HCL 4MG/2ML INJ IV PRN (17:45)
[2022-07-21] MEDS ORDERED: MAGNESIUM HYDROXIDE 400MG/5ML 30ML UDC PO PRN (17:45)
[2022-07-21] MEDS ORDERED: NALOXONE HCL 0.4MG/ML VIAL IV PRN (18:30)
[2022-07-21] MEDS: ENOXAPARIN 40MG/0.4ML SYR SUBCUT SCH (19:00)
[2022-07-21] MEDS: BLOOD SUGAR DIAGNOSTIC STRIP TEST SCH ×2 (20:27→21:00)
[2022-07-21] MEDS: INSULIN LISPRO 100 UNITS/ML SUBCUT SCH ×2 (20:37→21:00)
[2022-07-21 22:15] VITALS: BP 135/62
[2022-07-21] MEDS: ATORVASTATIN CALCIUM 10MG TABLET PO SCH (22:54)
[2022-07-21] MEDS: OMEPRAZOLE 20MG CAPSULE EXTENDED RELEASE PO SCH (22:54)
[2022-07-21] MEDS: SODIUM CHLORIDE 0.9% INJ 3ML FLUSH IVF SCH (22:55)
[2022-07-21] MEDS: AMLODIPINE 2.5MG TABLET PO SCH (22:55)
[2022-07-21] MEDS: ZOLPIDEM TARTRATE 5MG TABLET PO PRN (23:06)
[2022-07-21] MEDS: TRAMADOL 50MG TABLET PO PRN (23:06)
[2022-07-21 23:24] VITALS: BP 135/62
[2022-07-22] VITALS (8 sets, daily range): BP systolic 123–178; BP diastolic 65–81
[2022-07-22] MEDS: FUROSEMIDE 40MG TABLET PO SCH ×3 (00:57→22:15)
[2022-07-22] MEDS: HYDRALAZINE HCL 50MG TABLET PO SCH ×4 (00:59→22:18)
[2022-07-22] MEDS: CARVEDILOL 12.5MG TABLET PO SCH ×3 (01:00→22:17)
[2022-07-22 05:57] LABS: BASOPHILS % 0.4 % (0.0-2.0); EOSINOPHILS % 0.6 % (0.0-5.0); HEMATOCRIT. 37.7 % (36.0-48.0); HEMOGLOBIN. 12.6 g/dL (12.0-16.0); LYMPHOCYTES % 41.2 % (20.0-50.0); MEAN CORPUSCULAR HEMOGLOBIN 28.9 pg (28.0-32.0); MEAN CORPUSCULAR VOLUME 86.5 fL (81.0-99.0); MEAN PLATELET VOLUME 8.3 fl (7.4-10.4); MONOCYTES % 7.3 % (2.0-8.0); NEUTROPHILS % 50.5 % (40.0-76.0); PLATELET 226 x1000/uL (130-400); RED BLOOD CELL COUNT 4.35 mill/uL (4.2-5.4); RED CELL DISTRIBUTION WIDTH 15.9 % (11.6-14.6)
[2022-07-22] MEDS: SODIUM CHLORIDE 0.9% INJ 3ML FLUSH IVF SCH ×3 (06:00→22:18)
[2022-07-22 06:02] LABS: CHLORIDE 106 mEq/L (98-107)
[2022-07-22] MEDS: BLOOD SUGAR DIAGNOSTIC STRIP TEST SCH ×4 (06:42→20:03)
[2022-07-22] MEDS: INSULIN LISPRO 100 UNITS/ML SUBCUT SCH ×4 (06:42→20:02)
[2022-07-22] MEDS: OMEPRAZOLE 20MG CAPSULE EXTENDED RELEASE PO SCH ×2 (06:50→22:15)
[2022-07-22] MEDS: TRAMADOL 50MG TABLET PO PRN ×2 (06:51→17:01)
[2022-07-22] MEDS ORDERED: ASPIRIN 81MG EC TABLET PO SCH (09:00)
[2022-07-22] MEDS: AMLODIPINE 2.5MG TABLET PO SCH ×2 (09:58→22:16)
[2022-07-22] MEDS: DOCUSATE SODIUM 100MG CAPSULE PO SCH ×2 (09:59→17:02)
[2022-07-22] MEDS: ASPIRIN 81MG EC TABLET PO SCH (09:59)
[2022-07-22] MEDS: VENLAFAXINE HCL 37.5MG SR CAPSULE 24HR PO SCH (09:59)
[2022-07-22] MEDS: ALLOPURINOL 100 MG TABLET PO SCH (10:02)
[2022-07-22] MEDS ORDERED: ALBUTEROL (0.083%) 2.5MG/3ML NEB HHN PRN (17:00)
[2022-07-22] MEDS ORDERED: IPRATROPIUM BROMIDE (0.02%) 0.5MG/2.5ML NEB HHN PRN (17:00)
[2022-07-22] MEDS: ENOXAPARIN 40MG/0.4ML SYR SUBCUT SCH (17:01)
[2022-07-22] MEDS: CLONIDINE 0.1MG TABLET PO SCH (17:02)
[2022-07-22] MEDS: ZOLPIDEM TARTRATE 5MG TABLET PO PRN (22:16)
[2022-07-22] MEDS: ATORVASTATIN CALCIUM 10MG TABLET PO SCH (22:17)
[2022-07-23] VITALS: BP 153/54
[2022-07-23 04:00] VITALS: BP 135/64
[2022-07-23] MEDS: TRAMADOL 50MG TABLET PO PRN (04:29)
[2022-07-23 05:24] LABS: BASOPHILS % 0.5 % (0.0-2.0); EOSINOPHILS % 0.5 % (0.0-5.0); HEMATOCRIT. 37.6 % (36.0-48.0); HEMOGLOBIN. 12.7 g/dL (12.0-16.0); LYMPHOCYTES % 37.2 % (20.0-50.0); MEAN CORPUSCULAR HEMOGLOBIN 29.3 pg (28.0-32.0); MEAN CORPUSCULAR VOLUME 86.8 fL (81.0-99.0); MEAN PLATELET VOLUME 8.7 fl (7.4-10.4); MONOCYTES % 7.5 % (2.0-8.0); NEUTROPHILS % 54.3 % (40.0-76.0); PLATELET 215 x1000/uL (130-400); RED BLOOD CELL COUNT 4.33 mill/uL (4.2-5.4); RED CELL DISTRIBUTION WIDTH 15.3 % (11.6-14.6)
[2022-07-23] MEDS: BLOOD SUGAR DIAGNOSTIC STRIP TEST SCH ×2 (05:30→11:36)
[2022-07-23] MEDS: INSULIN LISPRO 100 UNITS/ML SUBCUT SCH ×2 (05:31→11:36)
[2022-07-23] MEDS: SODIUM CHLORIDE 0.9% INJ 3ML FLUSH IVF SCH (05:32)
[2022-07-23] MEDS: HYDRALAZINE HCL 50MG TABLET PO SCH (05:32)
[2022-07-23 05:57] LABS: CHLORIDE 105 mEq/L (98-107)
[2022-07-23] MEDS: OMEPRAZOLE 20MG CAPSULE EXTENDED RELEASE PO SCH (06:13)
[2022-07-23 08:00] VITALS: BP 148/60
[2022-07-23] MEDS: DOCUSATE SODIUM 100MG CAPSULE PO SCH (08:37)
[2022-07-23] MEDS: CLONIDINE 0.1MG TABLET PO SCH (08:37)
[2022-07-23] MEDS: VENLAFAXINE HCL 37.5MG SR CAPSULE 24HR PO SCH (08:37)
[2022-07-23] MEDS: ASPIRIN 81MG EC TABLET PO SCH (08:37)
[2022-07-23] MEDS: FUROSEMIDE 40MG TABLET PO SCH (08:38)
[2022-07-23] MEDS: CARVEDILOL 12.5MG TABLET PO SCH (08:38)
[2022-07-23] MEDS ORDERED: POTASSIUM CHLORIDE 20MEQ/PACKET PO SCH (09:15)
[2022-07-23] MEDS: ALLOPURINOL 100 MG TABLET PO SCH (09:50)
[2022-07-23] MEDS: AMLODIPINE 2.5MG TABLET PO SCH (09:51)
[2022-07-23 10:15] VITALS: BP 148/60
== END 2022-07-23 11:35 | disposition home health service (06) | DRG 48 ==
LOC: ER 09:40 → 7EST 11:45 → EDBEDREQ 11:53
PROVIDERS: ADMIT Internal Medicine; ATTEND Internal Medicine
DX: G90.8 Other disorders of autonomic nervous system (principal); I50.30 Unspecified diastolic (congestive) heart failure; I11.0 Hypertensive heart disease with heart failure; E11.40 Type 2 diabetes mellitus with diabetic neuropathy, unspecified; K21.9 Gastro-esophageal reflux disease without esophagitis; E78.5 Hyperlipidemia, unspecified; F32.A Depression, unspecified; F41.1 Generalized anxiety disorder; J44.9 Chronic obstructive pulmonary disease, unspecified; M10.9 Gout, unspecified; R47.1 Dysarthria and anarthria; M48.02 Spinal stenosis, cervical region; Z79.82 Long term (current) use of aspirin; Z79.899 Other long term (current) drug therapy; Z91.81 History of falling; Z90.710 Acquired absence of both cervix and uterus; Z86.73 Personal history of transient ischemic attack (TIA), and cerebral infarction without residual deficits; Z88.8 Allergy status to other drugs, medicaments and biological substances
CPT/HCPCS: 36415; 71045; 80048; 80053; 82962; 83036; 83735; 83880; 84484; 85025; 85379; 93005; 93306; 93880; 99285; J1650; J1815; J1940

== ENCOUNTER 2022-07-28 10:04 | Inpatient (IN) | payer MEDICARE, MEDICAID ==
[~2022-07-28] VITALS: Ht 162.6 cm; Wt 69.9 kg
[2022-07-28 11:26] LABS: BASOPHILS % 0.5 % (0.0-2.0); EOSINOPHILS % 0.5 % (0.0-5.0); HEMATOCRIT. 35.9 % (36.0-48.0); LYMPHOCYTES % 47.6 % (20.0-50.0); MEAN CORPUSCULAR HEMOGLOBIN 29.1 pg (28.0-32.0); MEAN CORPUSCULAR VOLUME 87.1 fL (81.0-99.0); MEAN PLATELET VOLUME 8.5 fl (7.4-10.4); MONOCYTES % 6.5 % (2.0-8.0); NEUTROPHILS % 44.9 % (40.0-76.0); PLATELET 201 x1000/uL (130-400); RED BLOOD CELL COUNT 4.12 mill/uL (4.2-5.4); RED CELL DISTRIBUTION WIDTH 15.7 % (11.6-14.6)
[2022-07-28 11:36] LABS: PARTIAL THROMBOPLASTIN TIME 31.4 sec (23.4-31.0); PROTHROMBIN TIME 10.9 sec (9.6-11.0)
[2022-07-28 11:39] LABS: CHLORIDE 108 mEq/L (98-107)
[2022-07-28] MEDS ORDERED: IPRATROPIUM BROMIDE (0.02%) 0.5MG/2.5ML NEB HHN STA (13:43)
[2022-07-28] MEDS ORDERED: ALBUTEROL (0.083%) 2.5MG/3ML NEB HHN STA (13:43)
[2022-07-28] MEDS ORDERED: FUROSEMIDE 40MG TABLET PO ONE (13:45)
[2022-07-28] MEDS ORDERED: AMLODIPINE 2.5MG TABLET PO NR (14:45)
[2022-07-28] MEDS ORDERED: IPRATROPIUM/ALBUTEROL 0.5-3(2.5)MG/3ML NEB HHN PRN (16:30)
[2022-07-28] MEDS ORDERED: DIPHENHYDRAMINE 50MG/ML VIAL IV PRN (16:30)
[2022-07-28] MEDS ORDERED: ONDANSETRON HCL 4MG/2ML INJ IV PRN (16:30)
[2022-07-28] MEDS ORDERED: MAGNESIUM/ALUMINUM HYDROXIDE/SIMETHICONE 30ML UDC PO PRN (16:30)
[2022-07-28] MEDS ORDERED: DEXTROSE 50% WATER 50ML SYRINGE IV PRN (16:30)
[2022-07-28] MEDS ORDERED: ACETAMINOPHEN 325MG TABLET PO PRN ×2 (16:30)
[2022-07-28] MEDS: BLOOD SUGAR DIAGNOSTIC STRIP TEST SCH ×2 (17:17→21:41)
[2022-07-28] MEDS: CLONIDINE 0.1MG TABLET PO PRN (18:14)
[2022-07-28 20:00] VITALS: BP 146/69
[2022-07-28] MEDS ORDERED: ATORVASTATIN CALCIUM 10MG TABLET PO SCH (21:00)
[2022-07-28] MEDS: ATORVASTATIN CALCIUM 10MG TABLET PO SCH (21:40)
[2022-07-28] MEDS: AMLODIPINE 2.5MG TABLET PO SCH (21:40)
[2022-07-28] MEDS: CARVEDILOL 12.5MG TABLET PO SCH (21:40)
[2022-07-28] MEDS: SODIUM CHLORIDE 0.9% INJ 3ML FLUSH IVF SCH (21:41)
[2022-07-28] MEDS: DEXT 5%/0.45% NACL 1000ML 1,000 ML IV SCH (21:44)
[2022-07-28] MEDS: INSULIN LISPRO 100 UNITS/ML SUBCUT SCH ×2 (21:44→21:47)
[2022-07-28] MEDS: ZOLPIDEM TARTRATE 5MG TABLET PO PRN (23:31)
[2022-07-28] MEDS: HYDRALAZINE HCL 100MG TABLET PO SCH (23:31)
[2022-07-29] VITALS: BP 166/66
[2022-07-29 04:00] VITALS: BP 140/60
[2022-07-29] MEDS: OMEPRAZOLE 20MG CAPSULE EXTENDED RELEASE PO SCH (05:54)
[2022-07-29] MEDS: HYDRALAZINE HCL 100MG TABLET PO SCH ×3 (05:54→23:59)
[2022-07-29] MEDS: BLOOD SUGAR DIAGNOSTIC STRIP TEST SCH ×4 (05:54→20:48)
[2022-07-29] MEDS: INSULIN LISPRO 100 UNITS/ML SUBCUT SCH ×4 (05:54→20:49)
[2022-07-29] MEDS: SODIUM CHLORIDE 0.9% INJ 3ML FLUSH IVF SCH ×3 (05:54→23:59)
[2022-07-29 06:57] LABS: BASOPHILS % 0.6 % (0.0-2.0); EOSINOPHILS % 0.6 % (0.0-5.0); HEMATOCRIT. 38.8 % (36.0-48.0); HEMOGLOBIN. 12.8 g/dL (12.0-16.0); LYMPHOCYTES % 41.8 % (20.0-50.0); MEAN CORPUSCULAR HEMOGLOBIN 28.6 pg (28.0-32.0); MEAN CORPUSCULAR VOLUME 86.5 fL (81.0-99.0); MEAN PLATELET VOLUME 8.7 fl (7.4-10.4); MONOCYTES % 7.3 % (2.0-8.0); NEUTROPHILS % 49.7 % (40.0-76.0); PLATELET 213 x1000/uL (130-400); RED BLOOD CELL COUNT 4.48 mill/uL (4.2-5.4); RED CELL DISTRIBUTION WIDTH 15.5 % (11.6-14.6)
[2022-07-29 08:00] VITALS: BP 147/83
[2022-07-29] MEDS: VENLAFAXINE HCL 37.5MG SR CAPSULE 24HR PO SCH (08:27)
[2022-07-29] MEDS: CARVEDILOL 12.5MG TABLET PO SCH ×2 (08:28→20:47)
[2022-07-29] MEDS: AMLODIPINE 2.5MG TABLET PO SCH (08:28)
[2022-07-29] MEDS: ASPIRIN 81MG EC TABLET PO SCH (08:28)
[2022-07-29] MEDS: ALLOPURINOL 100 MG TABLET PO SCH (08:28)
[2022-07-29 11:55] LABS: CHLORIDE 109 mEq/L (98-107)
[2022-07-29 12:00] VITALS: BP 144/55
[2022-07-29 16:00] VITALS: BP 180/68
[2022-07-29] MEDS: DEXT 5%/0.45% NACL 1000ML 1,000 ML IV SCH (16:56)
[2022-07-29] MEDS: CLONIDINE 0.1MG TABLET PO PRN (17:25)
[2022-07-29] MEDS: ATORVASTATIN CALCIUM 10MG TABLET PO SCH (17:25)
[2022-07-29] MEDS: TRAMADOL 50MG TABLET PO PRN (18:50)
[2022-07-29] MEDS ORDERED: NALOXONE HCL 0.4MG/ML VIAL IV PRN (19:00)
[2022-07-29 20:00] VITALS: BP 121/53
[2022-07-30] VITALS: BP 137/49
[2022-07-30] MEDS: ZOLPIDEM TARTRATE 5MG TABLET PO PRN (00:03)
[2022-07-30 04:00] VITALS: BP 149/98
[2022-07-30 06:00] LABS: BASOPHILS % 0.4 % (0.0-2.0); EOSINOPHILS % 0.9 % (0.0-5.0); HEMATOCRIT. 36.7 % (36.0-48.0); HEMOGLOBIN. 12.1 g/dL (12.0-16.0); LYMPHOCYTES % 47.5 % (20.0-50.0); MEAN CORPUSCULAR HEMOGLOBIN 28.8 pg (28.0-32.0); MEAN CORPUSCULAR VOLUME 87.4 fL (81.0-99.0); MEAN PLATELET VOLUME 8.6 fl (7.4-10.4); MONOCYTES % 5.9 % (2.0-8.0); NEUTROPHILS % 45.3 % (40.0-76.0); PLATELET 212 x1000/uL (130-400); RED CELL DISTRIBUTION WIDTH 15.4 % (11.6-14.6)
[2022-07-30] MEDS: SODIUM CHLORIDE 0.9% INJ 3ML FLUSH IVF SCH ×2 (06:08→14:22)
[2022-07-30] MEDS: OMEPRAZOLE 20MG CAPSULE EXTENDED RELEASE PO SCH (06:09)
[2022-07-30] MEDS: HYDRALAZINE HCL 100MG TABLET PO SCH ×2 (06:09→12:50)
[2022-07-30] MEDS: DEXT 5%/0.45% NACL 1000ML 1,000 ML IV SCH (06:09)
[2022-07-30 06:10] LABS: CHLORIDE 108 mEq/L (98-107)
[2022-07-30] MEDS: BLOOD SUGAR DIAGNOSTIC STRIP TEST SCH ×3 (06:10→16:40)
[2022-07-30] MEDS: TRAMADOL 50MG TABLET PO PRN (06:24)
[2022-07-30] MEDS: INSULIN LISPRO 100 UNITS/ML SUBCUT SCH ×2 (07:10→11:50)
[2022-07-30 08:00] VITALS: BP 154/62
[2022-07-30] MEDS: CARVEDILOL 12.5MG TABLET PO SCH (08:38)
[2022-07-30] MEDS: AMLODIPINE 5MG TABLET PO SCH ×2 (08:39)
[2022-07-30] MEDS: ASPIRIN 81MG EC TABLET PO SCH (08:39)
[2022-07-30] MEDS: ALLOPURINOL 100 MG TABLET PO SCH (08:39)
[2022-07-30] MEDS: VENLAFAXINE HCL 37.5MG SR CAPSULE 24HR PO SCH (08:39)
[2022-07-30 12:00] VITALS: BP 127/61
[2022-07-30 15:20] VITALS: BP 127/61
[2022-07-30 16:00] VITALS: BP 146/41
== END 2022-07-30 18:08 | disposition home health service (06) | DRG 194 ==
LOC: ER 10:04 → EDBEDREQ 16:26 → EDBEDREQTM 16:26 → 7EST 18:29
PROVIDERS: ADMIT Internal Medicine; ATTEND Internal Medicine
DX: I11.0 Hypertensive heart disease with heart failure (principal); E11.42 Type 2 diabetes mellitus with diabetic polyneuropathy; E78.5 Hyperlipidemia, unspecified; I50.33 Acute on chronic diastolic (congestive) heart failure; F41.1 Generalized anxiety disorder; K21.9 Gastro-esophageal reflux disease without esophagitis; J44.9 Chronic obstructive pulmonary disease, unspecified; M10.9 Gout, unspecified; Z90.710 Acquired absence of both cervix and uterus; Z86.73 Personal history of transient ischemic attack (TIA), and cerebral infarction without residual deficits; Z87.01 Personal history of pneumonia (recurrent); Z79.899 Other long term (current) drug therapy; Z79.82 Long term (current) use of aspirin
CPT/HCPCS: 36415; 71045; 80048; 80053; 82962; 83735; 83880; 84484; 85025; 93005; 94640; 99285; C1893; J1815

== ENCOUNTER 2022-10-06 15:45 | Emergency (ER) | payer MEDICARE, MEDICAID ==
[~2022-10-06] VITALS: Ht 162.6 cm; Wt 70.0 kg
[2022-10-06] MEDS ORDERED: ONDANSETRON HCL 4MG/2ML INJ IV ONE (17:15)
[2022-10-06] MEDS ORDERED: MORPHINE SULFATE 2 MG/ML CPJ (NOT FOR IM USE) IV ONE (17:15)
[2022-10-06 17:34] LABS: BASOPHILS % 0.5 % (0.0-2.0); EOSINOPHILS % 0.6 % (0.0-5.0); HEMATOCRIT. 37.8 % (36.0-48.0); HEMOGLOBIN. 12.4 g/dL (12.0-16.0); LYMPHOCYTES % 41.2 % (20.0-50.0); MEAN CORPUSCULAR HEMOGLOBIN 28.9 pg (28.0-32.0); MEAN CORPUSCULAR VOLUME 87.9 fL (81.0-99.0); MEAN PLATELET VOLUME 7.7 fl (7.4-10.4); MONOCYTES % 6.9 % (2.0-8.0); NEUTROPHILS % 50.8 % (40.0-76.0); PLATELET 232 x1000/uL (130-400); RED CELL DISTRIBUTION WIDTH 15.6 % (11.6-14.6)
[2022-10-06 17:35] LABS: CHLORIDE 107 mEq/L (98-107)
[2022-10-06] MEDS ORDERED: IPRA3AMP9 HHN (22:23)
[2022-10-06] MEDS ORDERED: ALBU6.7H3 INH (22:23)
[2022-10-06] MEDS ORDERED: FURO-152 PO (22:23)
[2022-10-06] MEDS ORDERED: P50 MT (22:23)
[2022-10-06 23:17] VITALS: BP 149/71
== END 2022-10-06 23:18 | disposition home or self-care (01) ==
LOC: ER 15:45
DX: R07.89 Other chest pain (principal); E11.9 Type 2 diabetes mellitus without complications; J44.1 Chronic obstructive pulmonary disease with (acute) exacerbation; I11.0 Hypertensive heart disease with heart failure; I50.9 Heart failure, unspecified; Z88.8 Allergy status to other drugs, medicaments and biological substances; Z79.899 Other long term (current) drug therapy; Z86.73 Personal history of transient ischemic attack (TIA), and cerebral infarction without residual deficits
CPT/HCPCS: 36415; 71045; 80053; 82962; 83880; 84484; 85025; 93005; 96374; 96375; 99285; J2270; J2405; Z7610

== ENCOUNTER 2022-11-05 14:54 | Emergency (ER) | payer MEDICARE, MEDICAID ==
[~2022-11-05] VITALS: Ht 157.5 cm; Wt 59.0 kg
[~2022-11-05 14:54] MED LIST changes: +P50 MT
[2022-11-05 14:57] VITALS: BP 158/66; PULSE 74; RESP 16; TEMP 98.9; O2SAT 98
[2022-11-05] MEDS ORDERED: MORPHINE SULFATE 4 MG/ML CPJ (NOT FOR IM USE) IV STA (15:11)
[2022-11-05] MEDS ORDERED: ONDANSETRON HCL 4MG/2ML INJ IV STA (15:11)
[2022-11-05] MEDS ORDERED: SODIUM CHLORIDE 0.9% 1,000 ML IV ONE (15:15)
[2022-11-05 15:58] LABS: BASOPHILS % 0.6 % (0.0-2.0); EOSINOPHILS % 0.5 % (0.0-5.0); HEMATOCRIT. 36.5 % (36.0-48.0); HEMOGLOBIN. 12.1 g/dL (12.0-16.0); LYMPHOCYTES % 43.3 % (20.0-50.0); MEAN CORPUSCULAR HEMOGLOBIN 28.9 pg (28.0-32.0); MEAN CORPUSCULAR VOLUME 86.9 fL (81.0-99.0); MEAN PLATELET VOLUME 7.7 fl (7.4-10.4); MONOCYTES % 7.3 % (2.0-8.0); NEUTROPHILS % 48.3 % (40.0-76.0); PLATELET 256 x1000/uL (130-400); RED CELL DISTRIBUTION WIDTH 15.9 % (11.6-14.6)
[2022-11-05 16:00] LABS: CHLORIDE 106 mEq/L (98-107)
[2022-11-05] MEDS ORDERED: IBUP-2028 MT (18:48)
== END 2022-11-05 20:07 | disposition home or self-care (01) ==
LOC: ER 14:54
DX: M79.602 Pain in left arm (principal); M25.512 Pain in left shoulder; E11.9 Type 2 diabetes mellitus without complications; I11.0 Hypertensive heart disease with heart failure; I50.9 Heart failure, unspecified; Z88.8 Allergy status to other drugs, medicaments and biological substances; Z79.899 Other long term (current) drug therapy; Z86.73 Personal history of transient ischemic attack (TIA), and cerebral infarction without residual deficits; Z79.82 Long term (current) use of aspirin
CPT/HCPCS: 80053; 83880; 85025; 84484; 36415; 71045; 73030; 93005; 99285; J7030; Z7610

== ENCOUNTER → 2022-11-19 | Outpatient (CLI) | payer MEDICARE, MEDICAID ==
[~2022-11-19] MED LIST changes: +IBUP-2028 MT
== END | disposition home or self-care (01) ==
LOC: MRI 08:18
PROVIDERS: ATTEND Neurological Surgery
DX: M47.817 Spondylosis without myelopathy or radiculopathy, lumbosacral region (principal); M48.07 Spinal stenosis, lumbosacral region; M24.28 Disorder of ligament, vertebrae; M51.27 Other intervertebral disc displacement, lumbosacral region
CPT/HCPCS: 72148

== ENCOUNTER 2023-06-23 15:03 | Emergency (ER) | payer MEDICARE, MEDICAID ==
[~2023-06-23] VITALS: Ht 162.6 cm; Wt 73.0 kg
[~2023-06-23 15:03] MED LIST changes: +ALBU18HF2 IH; -ALBU6.7H3 INH; +FLUT1DIS3 INH
[2023-06-23 15:10] VITALS: TEMP 97.9; O2SAT 100
[2023-06-23 16:19] LABS: BASOPHILS % 0.4 % (0.0-2.0); EOSINOPHILS % 0.5 % (0.0-5.0); HEMATOCRIT. 38.8 % (36.0-48.0); HEMOGLOBIN. 12.5 g/dL (12.0-16.0); LYMPHOCYTES % 44.3 % (20.0-50.0); MEAN CORPUSCULAR HEMOGLOBIN 28.7 pg (28.0-32.0); MEAN CORPUSCULAR HGB CONC 32.3 g/dL (31.0-37.0); MEAN CORPUSCULAR VOLUME 88.8 fL (81.0-99.0); MEAN PLATELET VOLUME 7.8 fl (7.4-10.4); MONOCYTES % 7.1 % (2.0-8.0); NEUTROPHILS % 47.7 % (40.0-76.0); PLATELET 206 x1000/uL (130-400); RED BLOOD CELL COUNT 4.37 mill/uL (4.2-5.4); RED CELL DISTRIBUTION WIDTH 15.5 % (11.6-14.6); WHITE BLOOD COUNT 6.9 x1000/uL (4.5-11.0)
[2023-06-23 16:30] LABS: ALANINE AMINOTRANSFERASE 10 IU/L (10-49); ALBUMIN 4.1 g/dL (3.2-4.8); ASPARTATE AMINOTRANSFERASE 18 IU/L (<34); BILIRUBIN TOTAL 0.3 mg/dL (0.1-1.0); CARBON DIOXIDE 26 mEq/L (21-32); CHLORIDE 107 mEq/L (98-107); CREATININE 0.9 mg/dL (0.6-1.0); GLUCOSE 107 mg/dL (70-105); POTASSIUM 3.7 mEq/L (3.5-5.1); PROTEIN TOTAL 6.9 g/dL (6.0-8.3); SODIUM 139 mEq/L (136-145); TROPONIN I HIGH SENSITIVITY 5 ng/L (3.0-34); UREA NITROGEN BLOOD 14 mg/dL (9-23)
[2023-06-23] MEDS ORDERED: MORPHINE SULFATE 2 MG/ML CPJ (NOT FOR IM USE) IV ONE (16:30)
[2023-06-23] MEDS: MORPHINE SULFATE 2 MG/ML CPJ (NOT FOR IM USE) IV NR (18:30)
[2023-06-23 19:22] VITALS: BP 146/73; PULSE 78; RESP 18
== END 2023-06-23 19:34 | disposition home or self-care (01) ==
LOC: ER 15:03
DX: M54.2 Cervicalgia (principal); I11.0 Hypertensive heart disease with heart failure; I50.9 Heart failure, unspecified; E11.9 Type 2 diabetes mellitus without complications; J44.1 Chronic obstructive pulmonary disease with (acute) exacerbation; E78.00 Pure hypercholesterolemia, unspecified; Z88.8 Allergy status to other drugs, medicaments and biological substances; Z79.899 Other long term (current) drug therapy; Z79.82 Long term (current) use of aspirin; Z86.73 Personal history of transient ischemic attack (TIA), and cerebral infarction without residual deficits; Z90.710 Acquired absence of both cervix and uterus
CPT/HCPCS: 80053; 83880; 85025; 84484; 36415; 71045; 72125; 93005; 96374; 99285; J2270; Z7610 ×3

== ENCOUNTER → 2024-01-05 | Outpatient (CLI) | payer MEDICARE, MEDICAID ==
[~2024-01-05] MED LIST changes: +DORZ10DR8 EACHEYE; +HYDR100T11 PO; -HYDR100T26 PO; -VENL37.55 PO; +VENL37.58 PO
== END | disposition home or self-care (01) ==
LOC: RAD 17:10
DX: S82.002D Unspecified fracture of left patella, subsequent encounter for closed fracture with routine healing (principal); M85.88 Other specified disorders of bone density and structure, other site; X58.XXXA Exposure to other specified factors, initial encounter; Y93.89 Activity, other specified; Y92.89 Other specified places as the place of occurrence of the external cause; Y99.8 Other external cause status
CPT/HCPCS: 73562

== ENCOUNTER 2024-01-17 12:43 | Inpatient (IN) | payer MEDICARE, MEDICAID ==
[~2024-01-17] VITALS: Ht 162.6 cm; Wt 72.6 kg
[2024-01-17] MEDS: FAMOTIDINE 20MG/2ML VIAL IV STA (14:04)
[2024-01-17] MEDS: ONDANSETRON HCL 4MG/2ML INJ IV STA (14:04)
[2024-01-17] MEDS: SODIUM CHLORIDE 0.9% 1,000 ML IV ONE (14:04)
[2024-01-17 15:38] LABS: BASOPHILS % 0.5 % (0.0-2.0); EOSINOPHILS % 0.6 % (0.0-5.0); HEMATOCRIT. 35.7 % (36.0-48.0); HEMOGLOBIN. 11.7 g/dL (12.0-16.0); LYMPHOCYTES % 48.7 % (20.0-50.0); MEAN CORPUSCULAR HEMOGLOBIN 29.1 pg (28.0-32.0); MEAN CORPUSCULAR HGB CONC 32.8 g/dL (31.0-37.0); MEAN CORPUSCULAR VOLUME 88.7 fL (81.0-99.0); MEAN PLATELET VOLUME 8.1 fl (7.4-10.4); MONOCYTES % 6.8 % (2.0-8.0); NEUTROPHILS % 43.4 % (40.0-76.0); PLATELET 258 x1000/uL (130-400); RED BLOOD CELL COUNT 4.02 mill/uL (4.2-5.4); RED CELL DISTRIBUTION WIDTH 16.5 % (11.6-14.6); WHITE BLOOD COUNT 7.2 x1000/uL (4.5-11.0)
[2024-01-17 15:48] LABS: INR 0.9; PROTHROMBIN TIME 10.6 sec (9.6-11.0)
[2024-01-17 15:49] LABS: CHLORIDE 113 mEq/L (98-107); POTASSIUM 3.8 mEq/L (3.5-5.1); SODIUM 144 mEq/L (136-145)
[2024-01-17 15:50] LABS: CALCIUM 8.7 mg/dL (8.7-10.4); CARBON DIOXIDE 24 mEq/L (21-32)
[2024-01-17 15:55] LABS: CREATININE 0.6 mg/dL (0.6-1.0); GLUCOSE 105 mg/dL (70-105); TROPONIN I HIGH SENSITIVITY 7 ng/L (3.0-34); UREA NITROGEN BLOOD 14 mg/dL (9-23)
[2024-01-17 15:57] LABS: ALANINE AMINOTRANSFERASE 12 IU/L (10-49); ALBUMIN 3.7 g/dL (3.2-4.8); ASPARTATE AMINOTRANSFERASE 16 IU/L (<34); BILIRUBIN DIRECT 0.1 mg/dL (<=3.0); BILIRUBIN TOTAL 0.3 mg/dL (0.1-1.0); PROTEIN TOTAL 6.4 g/dL (6.0-8.3)
[2024-01-17] MEDS: MORPHINE SULFATE 4 MG/ML INJ (FOR IV/IM USE) IV NR (17:00)
[2024-01-17] MEDS: MORPHINE SULFATE 4 MG/ML INJ (FOR IV/IM USE) IV ONE (17:05)
[2024-01-17] MEDS: LABETALOL 5MG/ML 4ML INJ IV ONE (17:05)
[2024-01-17 18:47] LABS: TROPONIN I HIGH SENSITIVITY 7 ng/L (3.0-34)
[2024-01-18] MEDS ORDERED: NALOXONE HCL 0.4MG/ML VIAL IV PRN (01:00)
[2024-01-18] MEDS ORDERED: MAGNESIUM/ALUMINUM HYDROXIDE/SIMETHICONE 30ML UDC PO PRN (01:00)
[2024-01-18] MEDS ORDERED: DIPHENHYDRAMINE 50MG/ML VIAL IV PRN (01:00)
[2024-01-18] MEDS ORDERED: CLONIDINE 0.1MG TABLET PO PRN (01:00)
[2024-01-18] MEDS ORDERED: HYDRALAZINE 20MG/ML VIAL IV PRN (01:00)
[2024-01-18] MEDS ORDERED: ACETAMINOPHEN 325MG TABLET PO PRN (01:00)
[2024-01-18] MEDS ORDERED: ONDANSETRON HCL 4MG/2ML INJ IV PRN (01:00)
[2024-01-18] MEDS ORDERED: GUAIFENESIN 200MG/10ML SUGAR FREE UDC PO PRN (01:00)
[2024-01-18] MEDS: HYDROCODONE/ACETAMINOPHEN 10/325MG TABLET PO PRN (01:37)
[2024-01-18] MEDS: SODIUM CHLORIDE 0.9% 3ML FLUSH IVF SCH (05:38)
[2024-01-18] MEDS: HYDRALAZINE HCL 100MG TABLET PO SCH (05:38)
[2024-01-18] MEDS: GABAPENTIN 100MG CAPSULE PO SCH (05:39)
[2024-01-18 08:00] VITALS: BP_SYST 113; BP_SYST 157; BP_SYST 170; BP_DIAS 59; BP_DIAS 62; BP_DIAS 75; PULSE 58; PULSE 75; PULSE 77; RESP 18; RESP 19; RESP 20; TEMP 35.61396; TEMP 36.33624; TEMP 36.50292; O2SAT 91; O2SAT 96; O2SAT 99
[2024-01-18 09:00] VITALS: BP 156/75; PULSE 77; RESP 19; TEMP 36.5292
[2024-01-18] MEDS: AMLODIPINE 5MG TABLET PO SCH (09:00)
[2024-01-18] MEDS: VENLAFAXINE HCL 37.5MG SR CAPSULE 24HR PO SCH (09:00)
[2024-01-18] MEDS: DICLOFENAC SODIUM 1% GEL 50GM TOP SCH (09:00)
[2024-01-18] MEDS: ALLOPURINOL 100 MG TABLET PO SCH (09:57)
[2024-01-18] MEDS: CARVEDILOL 12.5MG TABLET PO SCH (09:58)
[2024-01-18] MEDS: DOCUSATE SODIUM 100MG CAPSULE PO SCH (10:03)
[2024-01-18 12:00] VITALS: BP 137/63; PULSE 72; RESP 19; TEMP 36.28068; O2SAT 95
[2024-01-18] MEDS: BLOOD SUGAR DIAGNOSTIC STRIP TEST SCH (12:40)
[2024-01-18] MEDS ORDERED: DEXTROSE 50% WATER 50ML SYRINGE IV PRN (12:45)
[2024-01-18] MEDS: INSULIN LISPRO 100 UNITS/ML SUBCUT SCH (13:20)
[2024-01-18 16:00] VITALS: BP 160/68; PULSE 70; RESP 20; TEMP 35.8362; O2SAT 99
[2024-01-18] MEDS: DEXT 5%/0.45% NACL 1000ML 1,000 ML IV SCH (16:29)
[2024-01-18 17:47] LABS: CLARITY URINE CLEAR (CLEAR); COLOR URINE YELLOW (YELLOW); GLUCOSE URINE NEGATIVE (NEGATIVE); KETONES URINE NEGATIVE (NEGATIVE); LEUKOCYTE ESTERASE URINE NEGATIVE (NEGATIVE); NITRITE URINE NEGATIVE (NEGATIVE); OCCULT BLOOD URINE NEGATIVE (NEGATIVE); PROTEIN URINE TRACE (NEGATIVE); SPECIFIC GRAVITY URINE 1.007 (1.005-1.030); UROBILINOGEN URINE 0.2 E.U./dL (0.2-1.0)
[2024-01-18 18:48] LABS: RBC URINE NONE SEEN /hpf (0-2); WBC URINE 0-2 /hpf (0-2)
[2024-01-18 18:49] LABS: BACTERIA URINE TRACE; SQUAMOUS EPITHELIAL CELL URINE 1+ /lpf (RARE/1+)
[2024-01-18 20:00] VITALS: BP 110/80; PULSE 87; RESP 20; TEMP 36.61404; O2SAT 99
[2024-01-18] MEDS: ATORVASTATIN CALCIUM 10MG TABLET PO SCH (21:05)
[2024-01-18] MEDS: ZOLPIDEM TARTRATE 5MG TABLET PO PRN (21:05)
[2024-01-18] MEDS: FAMOTIDINE 20MG TABLET PO SCH (21:05)
[2024-01-19] VITALS: BP 140/60; PULSE 83; RESP 20; TEMP 37.2252; O2SAT 100
[2024-01-19 04:00] VITALS: BP 155/72; PULSE 84; RESP 20; TEMP 36.61404; O2SAT 98
[2024-01-19 07:40] LABS: CHLORIDE 108 mEq/L (98-107); SODIUM 140 mEq/L (136-145)
[2024-01-19 07:41] LABS: CALCIUM 9.1 mg/dL (8.7-10.4); CARBON DIOXIDE 25 mEq/L (21-32)
[2024-01-19 07:46] LABS: CREATININE 0.7 mg/dL (0.6-1.0); GLUCOSE 142 mg/dL (70-105); UREA NITROGEN BLOOD 14 mg/dL (9-23)
[2024-01-19 07:53] LABS: BASOPHILS % 0.4 % (0.0-2.0); EOSINOPHILS % 1.6 % (0.0-5.0); HEMATOCRIT. 37.1 % (36.0-48.0); LYMPHOCYTES % 36.6 % (20.0-50.0); MEAN CORPUSCULAR HEMOGLOBIN 28.7 pg (28.0-32.0); MEAN CORPUSCULAR HGB CONC 32.3 g/dL (31.0-37.0); MEAN PLATELET VOLUME 8.3 fl (7.4-10.4); MONOCYTES % 7.1 % (2.0-8.0); NEUTROPHILS % 54.3 % (40.0-76.0); PLATELET 246 x1000/uL (130-400); RED BLOOD CELL COUNT 4.17 mill/uL (4.2-5.4); WHITE BLOOD COUNT 7.6 x1000/uL (4.5-11.0)
[2024-01-19 08:00] VITALS: BP 138/58; PULSE 78; RESP 16; TEMP 36.55848; O2SAT 100
[2024-01-19] MEDS: LACTULOSE 20G/30ML UDC PO NR (10:09)
[2024-01-19] MEDS: BISACODYL 10MG SUPP PR NR (10:10)
[2024-01-19] MEDS: PANTOPRAZOLE 40MG DR TABLET PO SCH (10:15)
[2024-01-19 12:00] VITALS: BP 150/72; PULSE 79; RESP 18; TEMP 36.83628; O2SAT 98
[2024-01-19 16:00] VITALS: BP 137/56; PULSE 84; RESP 17; TEMP 36.50292; O2SAT 95
[2024-01-19 20:00] VITALS: BP 149/62; PULSE 81; RESP 20; TEMP 36.114; O2SAT 96
[2024-01-19] MEDS: LACTULOSE 20G/30ML UDC PO SCH (21:53)
[2024-01-19] MEDS: ZOLPIDEM TARTRATE 5MG TABLET PO ONE (22:53)
[2024-01-20] VITALS: BP 115/47; PULSE 86; RESP 20; TEMP 36.33624; O2SAT 97
[2024-01-20 04:00] VITALS: BP 153/69; PULSE 78; RESP 20; TEMP 36.22512; O2SAT 96
[2024-01-20 08:00] VITALS: BP 174/74; PULSE 82; RESP 18; TEMP 36.83628; O2SAT 95
[2024-01-20] MEDS: BISACODYL 10MG SUPP PR NR (09:30)
[2024-01-20] MEDS: MAGNESIUM HYDROXIDE 400MG/5ML 30ML UDC PO NR (10:30)
[2024-01-20 12:00] VITALS: BP 152/61; PULSE 74; RESP 20; TEMP 36.72516; O2SAT 100
[2024-01-20] MEDS ORDERED: HYDRALAZINE 10 MG in SODIUM CHLORIDE 0.9% 49.5 ML IV PRN (15:15)
[2024-01-20 16:00] VITALS: BP 142/68; PULSE 76; RESP 18; TEMP 36.33624; O2SAT 100
[2024-01-20 20:00] VITALS: BP 167/62; PULSE 77; RESP 20; TEMP 36.50292; O2SAT 95
[2024-01-21 04:00] VITALS: BP 160/64; PULSE 76; RESP 20; TEMP 36.50292; O2SAT 96
[2024-01-21 08:00] VITALS: BP 185/81; PULSE 77; RESP 20; TEMP 36.114; O2SAT 98
[2024-01-21 12:00] VITALS: BP 170/67; PULSE 73; RESP 20; TEMP 36.33624; O2SAT 96
[2024-01-21] MEDS: ACETAMINOPHEN 325MG TABLET PO PRN (12:20)
[2024-01-21] MEDS ORDERED: CLONIDINE 0.1MG TABLET PO SCH (14:00)
[2024-01-21] MEDS: CLONIDINE 0.2MG TABLET PO SCH (15:26)
[2024-01-21 16:00] VITALS: BP 150/66; PULSE 82; RESP 20; TEMP 36.22512; O2SAT 96
[2024-01-21 20:00] VITALS: BP 115/54; PULSE 79; RESP 20; TEMP 36.22512; O2SAT 100
[2024-01-22] VITALS: BP 117/62; PULSE 82; RESP 18; TEMP 36.33624; O2SAT 97
[2024-01-22 04:00] VITALS: BP 122/58; PULSE 71; RESP 20; TEMP 36.44736; O2SAT 96
[2024-01-22 08:00] VITALS: BP 122/56; PULSE 69; RESP 20; TEMP 36.55848; O2SAT 100
[2024-01-22 12:00] VITALS: BP 137/89; PULSE 69; RESP 18; TEMP 36.114; O2SAT 98
[2024-01-22 16:00] VITALS: BP 115/52; PULSE 73; RESP 18; TEMP 35.5584; TEMP 35.55840; O2SAT 100
[2024-01-22 16:32] VITALS: BP 115/52; PULSE 73; TEMP 96; O2SAT 100
== END 2024-01-22 19:22 | disposition home or self-care (01) | DRG 247 ==
LOC: ER 12:43 → EDBEDREQ 17:09 → EDBEDREQSVC 17:36 → EDBEDREQ 17:36 → 5WST 23:09 → 7WST 01-18 08:43 → 6WST 01-19 14:00
PROVIDERS: ADMIT Internal Medicine; ATTEND Internal Medicine
DX: K56.41 Fecal impaction (principal); E11.40 Type 2 diabetes mellitus with diabetic neuropathy, unspecified; I69.351 Hemiplegia and hemiparesis following cerebral infarction affecting right dominant side; I50.32 Chronic diastolic (congestive) heart failure; D64.9 Anemia, unspecified; E78.00 Pure hypercholesterolemia, unspecified; I11.0 Hypertensive heart disease with heart failure; F32.A Depression, unspecified; F41.1 Generalized anxiety disorder; I25.10 Atherosclerotic heart disease of native coronary artery without angina pectoris; J44.9 Chronic obstructive pulmonary disease, unspecified; K21.9 Gastro-esophageal reflux disease without esophagitis; M10.9 Gout, unspecified; R47.1 Dysarthria and anarthria; M48.02 Spinal stenosis, cervical region; G89.29 Other chronic pain; M75.102 Unspecified rotator cuff tear or rupture of left shoulder, not specified as traumatic; Z88.8 Allergy status to other drugs, medicaments and biological substances; Z79.899 Other long term (current) drug therapy; Z79.1 Long term (current) use of non-steroidal anti-inflammatories (NSAID); Z79.82 Long term (current) use of aspirin; Z82.49 Family history of ischemic heart disease and other diseases of the circulatory system; Z83.3 Family history of diabetes mellitus; Z90.710 Acquired absence of both cervix and uterus; I25.2 Old myocardial infarction
CPT/HCPCS: 36415; 72192; 74018; 74176; 76830; 76856; 80048; 80076; 81003; 82962; 83036; 83880; 84484; 85025; 93005; 97116; 97162; 99285; C1893; J1815; J2270; J2405; J3490; J7030